=== PATIENT | female | born 1945 | race Caucasian/White ===

== ENCOUNTER 2018-03-18 22:51 | Inpatient (IN) ==
--- NOTE | 2018-03-18 23:38 | Emergency Department Note ---
Disposition Clinical Impression: CAP (community acquired pneumonia) Qualifiers: Laterality: left Lung location: lower lobe of lung Qualified Code(s): J18.1 - Lobar pneumonia, unspecified organism UTI (urinary tract infection) Qualifiers: Urinary tract infection type: acute cystitis Hematuria presence: without hematuria Qualified Code(s): N30.00 - Acute cystitis without hematuria Disposition: Home, Self-Care Condition: Good Time of Disposition: 03:01 General Adult HPI - General Chief complaint: ED Weakness Stated complaint: weakness Source: patient, EMS Limitations: no limitations Nursing Notes Reviewed: Yes Vital Signs Reviewed: Yes - History of Present Illness HPI Narrative: 72-year-old female presents emergency department with concern for generalized weakness. Patient states that getting difficult for her to move around. States that she has had more falls lately. Was told by her home health nurse to come to the emergency department to be evaluated for further testing as they believe she has finished her first round of physical therapy and needs more. Patient denies any loss of conscious, denies hitting her head, states that she has no chest pain, pressure, tightness, no shortness of breath. Denies any abdominal pain, nausea, vomiting. Pain Scale: 0 - Related Data Home Medications Medication Instructions Recorded Confirmed Ascorbic Acid [Vitamin C] 500 mg PO DAILY #0 05/19/15 03/03/18 Biotin 1 mg PO DAILY 05/19/15 03/03/18 Cholecalciferol (D-3) [Vitamin D] 5,000 unit PO DAILY #0 05/19/15 03/03/18 Pravastatin Sodium [Pravachol] 20 mg PO HS 05/19/15 03/03/18 Vitamin E Acid Succinate [Vitamin 800 units PO DAILY #0 05/19/15 03/03/18 E] Aspirin Enteric Coated [Aspirin EC] 81 mg PO DAILY 01/10/16 03/03/18 Clopidogrel [Plavix] 75 mg PO DAILY 01/10/16 03/03/18 Anastrozole [Arimidex] 1 mg PO DAILY 05/08/17 03/03/18 Carvedilol 3.125 mg PO BID 05/08/17 03/03/18 Esomeprazole Magnesium [Nexium] 40 mg PO DAILY 05/08/17 03/03/18 Lisinopril 2.5 mg PO DAILY 05/08/17 03/03/18 Nitroglycerin [Nitrostat] 0.4 mg SL Q5M PRN 05/08/17 03/03/18 Ondansetron HCl [Zofran] 4 mg PO BID PRN 05/08/17 03/03/18 Polyethylene Glycol 3350 [MiraLAX] 17 gm PO DAILY PRN 05/08/17 03/03/18 Yervoy IV Q3W 05/08/17 Previous Rx's Medication Instructions Recorded Potassium Chloride 10 meq PO DAILY #30 tab.er.prt 03/12/18 Levofloxacin [Levaquin] 750 mg PO QDPC #4 tablet 03/19/18 Ondansetron HCl [Zofran] 4 mg PO Q8HR PRN #21 tab 03/19/18 Allergies Allergy/AdvReac Type Severity Reaction Status Date / Time atorvastatin [From Lipitor] Allergy Muscle Pain Verified 01/10/16 18:31 codeine Allergy See Verified 03/17/15 21:29 Comments All systems ED: reviewed and negative except as stated. Review of Systems: As Per HPI Constitutional: Denies: fever Cardiovascular: Denies: chest pain Respiratory: Reports: cough, dyspnea Gastrointestinal: Reports: nausea. Denies: abdominal pain, vomiting Genitourinary: Denies: urgency, dysuria, frequency Musculoskeletal: Denies: back pain Integumentary: Denies: rash Past Medical History - Past Medical History Medical history: Reports: cancer, coronary artery disease, diabetes, hyperlipidemia, hypertension, myocardial infarction, osteoporosis, syncope Surgical history: Reports: breast surgery Psychiatric history: Reports: no psych history - Social History Smoking Status: Never smoker Smokeless Tobacco Status: No Alcohol use: Reports: rarely Drug use: Reports: none Physical Exam - General Limitations: no limitations General appearance: alert, in no apparent distress - Head Head exam: normocephalic - Eye Eye exam: Present: EOMI - ENT ENT exam: normal oropharynx - Neck Neck exam: Present: trachea midline - Chest Chest inspection: Present: symmetric chest wall rise - Respiratory Respiratory exam: Present: normal lung sounds bilaterally. Absent: respiratory distress - Cardiovascular Cardiovascular exam: Present: regular rate, normal rhythm, normal heart sounds - Abdominal Exam Abdominal exam: Present: soft, Non-Tender. Absent: distention, guarding, rebound, rigidity - Extremities Exam Extremities exam: Present: normal capillary refill - Neurological Exam Neurological exam: Present: alert, oriented X3 - Psychiatric Psychiatric exam: Present: normal affect, normal mood - Skin Skin exam: Present: warm, dry, intact, normal color Course Vital Signs Temperature 98.1 F 03/18/18 22:57 Pulse Rate 90 03/18/18 22:57 Respiratory Rate 20 03/18/18 22:57 Blood Pressure 133/78 03/18/18 22:57 O2 Sat by Pulse Oximetry 95 03/18/18 22:57 Temperature 98.2 F 03/19/18 04:24 Pulse Rate 84 03/19/18 03:39 Respiratory Rate 18 03/19/18 04:24 Blood Pressure 130/74 03/19/18 04:24 O2 Sat by Pulse Oximetry 96 03/19/18 03:39 Oxygen Delivery Oxygen Delivery Room Air Medical Decision Making - MDM Narrative Medical decision making narrative: 72-year-old female presents emergency department with concern for generalized weakness that she has been evaluated for previously. We will obtain chest x- ray. This revealed evidence of left lower lobe pneumonia. Urinalysis also obtained. This revealed moderate leukocyte esterase. Patient was not in any acute distress during her emergency room stay. She does not have a leukocytosis. Hemoglobin was within normal limits. Creatinine was normal as well. We gave patient a liter of fluids here in the emergency department as well as Zofran for nausea. We will send patient home with Levaquin to treat both UTI and pneumonia. Patient agrees with plan. Hemodynamically stable not in any acute distress at time of discharge from the emergency department. Chest X-Ray 03/18/18 23:37 IMPRESSION: Left retrocardiac consolidation consistent with combination of airspace disease/ pneumonia and small left pleural effusion. D/ / Tmimy Maldonado MD / Timym Maldonado MD Interpreting Provider: Timmy Maldonado MD Vital Signs Temperature 98.1 F 03/18/18 22:57 Pulse Rate 90 03/18/18 22:57 Respiratory Rate 20 03/18/18 22:57 Blood Pressure 133/78 03/18/18 22:57 O2 Sat by Pulse Oximetry 95 03/18/18 22:57 Temperature 98.1 F 03/18/18 22:57 Pulse Rate 90 03/18/18 22:57 Respiratory Rate 20 03/18/18 22:57 Blood Pressure 133/78 03/18/18 22:57 O2 Sat by Pulse Oximetry 98 03/18/18 23:14 Oxygen Delivery Oxygen Delivery Nasal Cannula - Lab Data Result diagrams: 03/19/18 01:23 03/19/18 01:23 Lab Results 03/19/18 03/19/18 03/19/18 Range/Units 01:23 01:23 01:23 WBC 8.0 (4.3-11.1) K/mcL RBC 4.18 (3.82-4.97) M/mcL Hgb 13.6 (11.5-15.4) g/dL Hct 40.5 (35.3-44.9) % MCV 96.9 (83.0-100.0) fL MCH 32.5 (28.0-33.3) pg MCHC 33.6 (31.6-35.5) g/dL RDW 14.8 H (11.5-14.5) % Plt Count 229 (140-400) K/mcL MPV 9.5 (9.4-12.4) fL Immature Gran % 0.4 (0-4) % Seg Neutrophils % 77.5 % Lymphocytes % 13.4 % Monocytes % 8.0 % Eosinophils % 0.1 % Basophils % 0.6 % Neutrophils # 6.2 (1.6-8.9) K/mcL Lymphocytes # 1.1 (0.6-4.6) K/mcL Monocytes # 0.6 (0.0-1.3) K/mcL Eosinophils # 0.0 (0.0-0.6) K/mcL Basophils # 0.1 (0.0-0.2) K/mcL Sodium 135 L (136-145) mEq/L Potassium 4.1 (3.5-5.1) mEq/L Chloride 96 L (98-107) mEq/L Carbon Dioxide 24 (23-29) mEq/L BUN 24 H (8-23) mg/dL Creatinine 0.57 L (0.60-1.20) mg/dL Est GFR ( Amer) > 60 (> 60) Est GFR (Non-Af Amer) > 60 (> 60) BUN/Creatinine Ratio 42 H (6-26) Glucose 97 (70-105) mg/dL Calculated Osmolality 284 (280-300) Calcium 9.0 (8.6-10.3) mg/dL Total Bilirubin 1.0 (0.3-1.0) mg/dL AST 11 L (13-39) Units/L ALT 3 L (7-52) Units/L Alkaline Phosphatase 56 (34-104) Units/L Troponin I < 0.03 (< 0.04) ng/mL Serum Total Protein 5.8 L (6.4-8.9) g/dL Albumin 3.0 L (3.5-5.7) g/dL Globulin 2.8 (2.4-3.5) g/dL Albumin/Globulin Ratio 1.1 (1.1-2.2) Lipase 22 (11-82) Units/L TSH 5.237 (0.340-5.600) mcIU/mL Urine Color (Yellow) Urine Clarity (Clear) Urine pH (5.0-8.0) pH Units Ur Specific Conover (1.010-1.025) Urine Protein (Neg-Trace) mg/dL Urine Glucose (UA) (Normal) mg/dL Urine Ketones (Negative) mg/dL Urine Blood (Negative) Urine Nitrite (Negative) Urine Bilirubin (Negative) Urine Urobilinogen (Normal) mg/dL Ur Leukocyte Esterase (Negative) Urine Microscopic RBC (0-3) per hpf Urine Microscopic WBC (0-3) per hpf Ur Squamous Epith Cells (None-Few) per lpf Urine Bacteria (None-Few) per hpf Hyaline Casts (None-Few) per lpf Ur Culture Indicated? (NO) 03/19/18 Range/Units 02:14 WBC (4.3-11.1) K/mcL RBC (3.82-4.97) M/mcL Hgb (11.5-15.4) g/dL Hct (35.3-44.9) % MCV (83.0-100.0) fL MCH (28.0-33.3) pg MCHC (31.6-35.5) g/dL RDW (11.5-14.5) % Plt Count (140-400) K/mcL MPV (9.4-12.4) fL Immature Gran % (0-4) % Seg Neutrophils % % Lymphocytes % % Monocytes % % Eosinophils % % Basophils % % Neutrophils # (1.6-8.9) K/mcL Lymphocytes # (0.6-4.6) K/mcL Monocytes # (0.0-1.3) K/mcL Eosinophils # (0.0-0.6) K/mcL Basophils # (0.0-0.2) K/mcL Sodium (136-145) mEq/L Potassium (3.5-5.1) mEq/L Chloride (98-107) mEq/L Carbon Dioxide (23-29) mEq/L BUN (8-23) mg/dL Creatinine (0.60-1.20) mg/dL Est GFR ( Amer) (> 60) Est GFR (Non-Af Amer) (> 60) BUN/Creatinine Ratio (6-26) Glucose (70-105) mg/dL Calculated Osmolality (280-300) Calcium (8.6-10.3) mg/dL Total Bilirubin (0.3-1.0) mg/dL AST (13-39) Units/L ALT (7-52) Units/L Alkaline Phosphatase (34-104) Units/L Troponin I (< 0.04) ng/mL Serum Total Protein (6.4-8.9) g/dL Albumin (3.5-5.7) g/dL Globulin (2.4-3.5) g/dL Albumin/Globulin Ratio (1.1-2.2) Lipase (11-82) Units/L TSH (0.340-5.600) mcIU/mL Urine Color Dukes A (Yellow) Urine Clarity Clear (Clear) Urine pH 6.0 (5.0-8.0) pH Units Ur Specific [place] 1.019 (1.010-1.025) Urine Protein 30 H (Neg-Trace) mg/dL Urine Glucose (UA) Normal (Normal) mg/dL Urine Ketones 80 H (Negative) mg/dL Urine Blood Negative (Negative) Urine Nitrite Negative (Negative) Urine Bilirubin Large H (Negative) Urine Urobilinogen 2.0 H (Normal) mg/dL Ur Leukocyte Esterase Moderate H (Negative) Urine Microscopic RBC 0-3 (0-3) per hpf Urine Microscopic WBC 5-15 H (0-3) per hpf Ur Squamous Epith Cells Many H (None-Few) per lpf Urine Bacteria Few (None-Few) per hpf Hyaline Casts None Seen (None-Few) per lpf Ur Culture Indicated? NO. A (NO) - EKG Data EKG #1 EKG attestation: Yes I reviewed and interpreted this EKG. EKG results narrative: 23:02 Ventricular rate 96 bpm, appearing 162 ms, QRS duration 78 ms, QT 347 segs, QTC 401 ms, sinus rhythm with a ventricular rate of 96 bpm. Low voltage. No ischemic ST changes. Attestation Statement - Attestation Attestation: Dr Tiwari note: Pt seen in conjunction w/ resident Dr Casillas; please see his charting for complete documentation. I spent [id number] time with the patient and I agree with the patient's treatment and disposition. X rays and bloodwork reviewed; unable to care for self @ this time; just left an ecf approx 1 wk ago, but reportes she has been unable to do her ADLs since that time and getting progresively worse;
[2018-03-18] MEDS ORDERED: 0.9 % Sodium Chloride 1,000 ML IVC ONE (23:50)
[2018-03-18] MEDS ORDERED: Ondansetron 4 MG/2 ML VIAL IVP ONE (23:50)
[2018-03-19 01:37] LABS: Basophils # 0.1 K/mcL (0.0-0.2); Basophils % 0.6 %; Eosinophils % 0.1 %; Hematocrit 40.5 % (35.3-44.9); Hemoglobin 13.6 g/dL (11.5-15.4); Immature Granulocytes % 0.4 % (0-4); Lymphocytes # 1.1 K/mcL (0.6-4.6); Lymphocytes % 13.4 %; Mean Corpuscular HGB Conc 33.6 g/dL (31.6-35.5); Mean Corpuscular Hemoglobin 32.5 pg (28.0-33.3); Mean Corpuscular Volume 96.9 fL (83.0-100.0); Mean Platelet Volume 9.5 fL (9.4-12.4); Monocytes # 0.6 K/mcL (0.0-1.3); Neutrophils # 6.2 K/mcL (1.6-8.9); Platelet Count 229 K/mcL (140-400); Red Blood Count 4.18 M/mcL (3.82-4.97); Red Cell Distribution Width 14.8 % (11.5-14.5); Segmented Neutrophils % 77.5 %
[2018-03-19 02:02] LABS: Alanine Aminotransferase 3 Units/L (7-52); Albumin/Globulin Ratio 1.1 (1.1-2.2); Alkaline Phosphatase 56 Units/L (34-104); Aspartate Amino Transferase 11 Units/L (13-39); BUN/Creatinine Ratio 42 (6-26); Blood Urea Nitrogen 24 mg/dL (8-23); Carbon Dioxide 24 mEq/L (23-29); Chloride 96 mEq/L (98-107); Globulin 2.8 g/dL (2.4-3.5); Glucose 97 mg/dL (70-105); Lipase 22 Units/L (11-82); Osmolality,Calculated 284 (280-300); Potassium 4.1 mEq/L (3.5-5.1); Sodium 135 mEq/L (136-145); Total Protein 5.8 g/dL (6.4-8.9); eGFR For Non-African Americans > 60 (> 60)
[2018-03-19 02:04] LABS: Troponin I < 0.03 ng/mL (< 0.04)
[2018-03-19 02:18] LABS: Thyroid Stimulating Hormone 5.237 mcIU/mL (0.340-5.600)
[2018-03-19 02:25] LABS: Bilirubin,Urine Large (Negative); Blood,Urine Negative (Negative); Clarity,Urine Clear (Clear); Color,Urine Orange (Yellow); Glucose,Urine (UA) Normal (Normal); Ketones,Urine 80 mg/dL (Negative); Leukocyte Esterase,Urine Moderate (Negative); Nitrite,Urine Negative (Negative); Protein,Urine 30 mg/dL (Neg-Trace); Specific Gravity,Urine 1.019 (1.010-1.025)
[2018-03-19 02:33] LABS: Hyaline Casts,Urine None Seen per lpf (None-Few); Squamous Epithelial Cell,Urine Many per lpf (None-Few)
[2018-03-19 02:42] LABS: Bacteria,Urine Few per hpf (None-Few); RBC,Urine 0-3 per hpf (0-3)
[2018-03-19] MEDS ORDERED: Naloxone 0.4 MG/ML INJ IVP PRN (05:44)
--- NOTE | 2018-03-19 06:24 | Internal Med History&Physical ---
Date of Encounter: 03/19/18 Time of Encounter: 05:00 Internal Medicine - H&P: HPI Chief complaint: Pneumonia, UTI Admitted From: Home Plans for Post Hospital Care: Home History of present illness: Ms. Valerio is a 72 year old female Patient has extensive cancer history including melanoma of the right foot, breast cancer and current lymph node metastasis in her right thigh. She has been following with [facility] for treatment and has been started on immunotherapy. She has been in and out of hospitals and extended care facilities over the last month. She was recently released from an extended care facility about a week ago, had continued problems with ambulation and weakness. She is noticed increased coughing and congestion lately as well. She has a home health nurse assessed her and told her that she should come to the emergency room for evaluation. In the ER her vital signs were stable, she was found did not have a elevated white count, but urinalysis showed moderate leukocyte esterase, 30 protein 5-15 microscopic white blood cells and many squamous epithelial cells. Patient denies dysuria, but due to her condition and immunocompromised state ER felt appropriate patient be treated. Urine cultures were ordered. Chest x-ray also showed left retrocardiac consolidation consistent with combination of airspace disease and pneumonia as well as a small left pleural effusion. Because of her recent hospital stays as well as treatment at [facility] and cancer center, patient was admitted for further management of her pneumonia and UTI. Upon my assessment, patient denies chest pain but has had increased shortness of breath. She denies nausea and vomiting. She denied diarrhea and constipation. Past Med Surg Social Fam HX - Past Medical History Medical history: cancer, coronary artery disease, diabetes, hyperlipidemia, hypertension, myocardial infarction, osteoporosis, syncope Additional medical history: Breast cancer, Melanoma- Right foot, RLE, right groin, Stage 3. Psychiatric history: no psych history - Past Surgical History Surgical History: breast surgery Additional surgical history: Heart stent, Skin Graphs, Lymph node removal, Incision of the right foot. - Social History Smoking Status: Never smoker Smokeless Tobacco Status: No Alcohol use: rarely Drug use: none - Family History Father Family Member Ethnicity: Non- Living Status: Hx Family Cardiac Disorders: Yes (MO, HTN) Hx Family GI Disorders: Yes (Ulcers) Hx Family Endocrine Disorder: Yes (Gallstones, DM) Mother Family Member Ethnicity: Non- Living Status: Hx Family Cardiac Disorders: Yes (Tachycardia) Hx Family Cancer: Yes (Melanoma, Breast) Brother Family Member Ethnicity: Non- Living Status: Hx Family Cardiac Disorders: Yes (MO) Hx Family Cancer: Yes (Melanoma) Hx Family GI Disorders: Yes (Ulcers) Internal Medicine - H&P: Meds Ascorbic Acid [Vitamin C] 500 mg PO DAILY #0 05/19/15 [History] Biotin 1 mg PO DAILY 05/19/15 [History] Cholecalciferol (D-3) [Vitamin D] 5,000 unit PO DAILY #0 05/19/15 [History] Pravastatin Sodium [Pravachol] 20 mg PO HS 05/19/15 [History] Vitamin E Acid Succinate [Vitamin E] 800 units PO DAILY #0 05/19/15 [History] Aspirin Enteric Coated [Aspirin EC] 81 mg PO DAILY 01/10/16 [History] Clopidogrel [Plavix] 75 mg PO DAILY 01/10/16 [History] Anastrozole [Arimidex] 1 mg PO DAILY 05/08/17 [History] Carvedilol 3.125 mg PO BID 05/08/17 [History] Esomeprazole Magnesium [Nexium] 40 mg PO DAILY 05/08/17 [History] Lisinopril 2.5 mg PO DAILY 05/08/17 [History] Nitroglycerin [Nitrostat] 0.4 mg SL Q5M PRN 05/08/17 [History] Ondansetron HCl [Zofran] 4 mg PO BID PRN 05/08/17 [History] Polyethylene Glycol 3350 [MiraLAX] 17 gm PO DAILY PRN 05/08/17 [History] Yervoy IV Q3W 05/08/17 [History] Potassium Chloride 10 meq PO DAILY #30 tab.er.prt 03/12/18 [Rx] Levofloxacin [Levaquin] 750 mg PO QDPC #4 tablet 03/19/18 [Rx] Ondansetron HCl [Zofran] 4 mg PO Q8HR PRN #21 tab 03/19/18 [Rx] 3 Allergy/AdvReac Type Severity Reaction Status Date / Time atorvastatin [From Lipitor] Allergy Muscle Pain Verified 01/10/16 18:31 codeine Allergy See Verified 03/17/15 21:29 Comments All Systems PM: A 10-system review of systems was performed and is negative for pertinent findings except as documented above in the HPI. - Constitutional Vitals: Temp Pulse Resp BP Pulse Ox 97.7 F 86 16 184/98 93 03/19/18 04:58 03/19/18 04:58 03/19/18 04:58 03/19/18 04:58 03/19/18 04:58 General appearance: Present: cooperative, A&O X 3, pleasant, no acute distress, answers questions appropriately - Head Head exam: Present: normal inspection - Eye Eye exam: Present: EOMI, normal appearance - Respiratory Respiratory exam: Present: CTAB. Absent: chest wall tenderness, respiratory distress, wheezes - Cardiovascular Cardiovascular exam: Present: RRR. Absent: diastolic murmur, systolic murmur - GI/Abdominal GI/Abdominal exam: Present: soft. Absent: distended, tenderness Additional comments: Large lymph node swelling in the right groin area. - Extremities Exam Extremities exam: Present: warm, radial pulses palpable and symmetrical. Absent : calf tenderness, pedal edema, tenderness - Neurological Exam Neurological exam: Present: no focal deficits. Absent: facial droop, speech deficit - Skin Skin exam: Present: dry, normal color, warm Internal Med - H&P Results - Labs CBC & Chem 7: 03/19/18 01:23 03/19/18 01:23 - Assessment and plan (1) Healthcare-associated pneumonia Current Visit: Yes Status: Acute Assessment and plan: As evidenced by patient's chest x-ray. Will treat aggressively due to patient' s immunotherapy treatment, recent hospitalizations and ECF stays. Blood cultures ordered and to be drawn this morning prior to giving antibiotics Start patient on healthcare associated pneumonia antibiotic regimen including vancomycin, Levaquin and Zosyn De-escalate antibiotics according to patient response and blood culture results. Check lactate this morning Continue to monitor (2) UTI (urinary tract infection) Current Visit: Yes Status: Acute Assessment and plan: Patient's UA positive for moderate leukocyte esterase but negative for nitrites. There were also many squamous epithelial cells seen. Due to the possibility of infection will still treat with Levaquin as given for her pneumonia treatment. Follow-up urine culture results Qualifiers: Urinary tract infection type: acute cystitis Hematuria presence: without hematuria Qualified Code(s): N30.00 - Acute cystitis without hematuria (3) Lymph node enlargement Current Visit: Yes Status: Acute Assessment and plan: Apparently from metastatic spread to the right thigh lymph node. Will need to confirm patient's treatment initiated by oncology, and continue that while here in the hospital Follow-up with pharmacy and oncology documentation (4) Generalized weakness Current Visit: No Status: Chronic Assessment and plan: Patient recently discharged from [facility] despite continued weakness. PT evaluation during this hospitalization stay when stable. (5) GERD (gastroesophageal reflux disease) Current Visit: No Status: Acute Assessment and plan: Chronic, continue PPI Qualifiers: Esophagitis presence: without esophagitis Qualified Code(s): K21.9 - Gastro -esophageal reflux disease without esophagitis (6) Malignant melanoma of right foot Current Visit: No Status: Chronic Assessment and plan: Continue to monitor, treatment as per oncology (7) Diabetes Current Visit: No Status: Chronic Assessment and plan: Continue to monitor Basal insulin at night Low dose sliding scale Check sugars ACHS Qualifiers: Diabetes mellitus type: type 2 Diabetes mellitus 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
[2018-03-19 06:34] LABS: Hematocrit 42.9 % (35.3-44.9); Hemoglobin 14.2 g/dL (11.5-15.4); Mean Corpuscular HGB Conc 33.1 g/dL (31.6-35.5); Mean Corpuscular Hemoglobin 31.2 pg (28.0-33.3); Mean Corpuscular Volume 94.3 fL (83.0-100.0); Mean Platelet Volume 9.4 fL (9.4-12.4); Platelet Count 237 K/mcL (140-400); Red Blood Count 4.55 M/mcL (3.82-4.97)
[2018-03-19] MEDS ORDERED: Dextrose Gel 15 GM/37.5 ML TUBE PO PRN ×2 (06:39)
[2018-03-19] MEDS ORDERED: D5% in Water 1,000 ML IVC PRN (06:39)
[2018-03-19] MEDS ORDERED: *HR* Dextrose 50 % in Water (Syg) 50 ML SYRINGE IVP PRN (06:39)
[2018-03-19 06:49] LABS: BUN/Creatinine Ratio 43 (6-26); Blood Urea Nitrogen 23 mg/dL (8-23); Calcium 9.3 mg/dL (8.6-10.3); Carbon Dioxide 25 mEq/L (23-29); Chloride 96 mEq/L (98-107); Glucose 84 mg/dL (70-105); Osmolality,Calculated 287 (280-300); Potassium 3.7 mEq/L (3.5-5.1); Sodium 137 mEq/L (136-145); eGFR For Non-African Americans > 60 (> 60)
--- NOTE | 2018-03-19 07:54 | Internal Med Progress Note ---
Hospitalist Progress Note - Encounter Date of Encounter: 03/19/18 Time of Encounter: 07:54 - Subjective Interval History: Patient seen and examined at bedside today, no acute changes overnight. Appears to be in a pleasant mood, continues to report shortness of breath with activity as well as nonproductive cough. Reporting right groin lymph node swelling. Discussed plan of care, verbalizes understanding and denies any questions at this time. - Exam Vitals: Temp Pulse Resp BP Pulse Ox 97.8 F 81 16 159/84 97 03/19/18 07:03 03/19/18 07:03 03/19/18 07:03 03/19/18 07:03 03/19/18 07:03 Exam: PHYSICAL EXAMINATION: GENERAL: The patient is an elderly ill appearing female in no apparent distress. She is alert and oriented x3. HEENT: Head is normocephalic and atraumatic. Extraocular muscles are intact. Pupils are equal, round, and reactive to light and accommodation. Nares appeared normal. Mouth is well hydrated and without lesions. Mucous membranes are moist. NECK: Supple. No carotid bruits. No lymphadenopathy or thyromegaly. LUNGS: Clear to auscultation. HEART: Regular rate and rhythm without murmur. ABDOMEN: Soft, nontender, and nondistended. Hypoactive bowel sounds. No hepatosplenomegaly was noted. EXTREMITIES: Without any cyanosis, clubbing, rash, lesions or edema.--Scar tissue on inner aspect of right foot and right Status post melanoma removal. Large swollen firm lymph node in the right groin 2/2 metastatic melanoma NEUROLOGIC: Without facial droop or slurred speech - Assessment and Plan (1) Healthcare-associated pneumonia Current Visit: Yes Status: Acute Assessment and Plan: Weakness, fatigue, cough and shortness of breath Immunocompromise with metastatic melanoma and right breast cancer Multiple recent hospital stays including recent admission to [facility] for rehabilitation Chest x-ray shows--lconsolidation consistent with combination of airspace disease/pneumonia Being treated for healthcare acquired pneumonia--organism unclear Continue treatment with broad-spectrum antibiotics including vancomycin, Levaquin and Zosyn De-escalate antibiotics according to patient's response and blood culture results Does not appear to be toxic at this time Continue to closely monitor Check CBC, BMP daily Ambulate 3 times a day, up in chair 3 times a day Incentive spirometer Oxygen supplementation PRN (2) UTI (urinary tract infection) Current Visit: Yes Status: Acute Assessment and Plan: Urinalysis positive for moderate facet Estrace but negative for nitrates Patient presented with weakness and fatigue. Also, she is immunocompromised secondary to right breast cancer and metastatic melanoma I risk for infections, continue to treat with Levaquin which is also being given for her HCAP Urine sent for culture--follow up with results (3) Lymph node enlargement Current Visit: Yes Status: Acute Assessment and Plan: Enlargement of right carotid lymph node secondary to metastatic spread of melanoma from right foot and calf. She is currently being treated with immunotherapy at the [facility].--Recent scans at [facility] negative for abdominal organ, or lung metastasis. (4) GERD (gastroesophageal reflux disease) Current Visit: No Status: Acute Assessment and Plan: Chronic, continue PPI (5) Cancer of right female breast Current Visit: No Status: Chronic Assessment and Plan: Cancer of right breast--estrogen positive Being treated at the [facility] (6) Diabetes Current Visit: No Status: Chronic Assessment and Plan: Chronic, fingerstick blood glucose stable Continue basal insulin at night Continue low-dose sliding scale Monitor glucose ACHS (7) Generalized weakness Current Visit: No Status: Chronic Assessment and Plan: In the setting of healthcare acquired pneumonia Also, patient has history of metastatic melanoma and right breast cancer She was recently released from [facility] for rehabilitation PT/OT while inpatient--consult vp digital marketing social media and crm for discharge planning as the patient may benefit from additional rehabilitation (8) HLD (hyperlipidemia) Current Visit: No Status: Chronic (9) HTN (hypertension) Current Visit: No Status: Chronic Assessment and Plan: BP remains stable, continue current and HTN medication regimen once medications have been reviewed and confirmed (10) Malignant melanoma of right foot Current Visit: No Status: Chronic Assessment and Plan: See above DVT Prophylaxis: Subcutaneous heparin - Time Spent with Patient Total time spent is greater than 50% in coordination of care (as documented) at patient's floor/unit and/or counseling patient: 25 - 35 minutes Plan of Care Discussed with: patient Internal Medicine: Result - Labs CBC & Chem 7: 03/19/18 06:15 03/19/18 06:15 Labs: Short CBC 03/19/18 Range/Units 06:15 WBC 8.1 (4.3-11.1) K/mcL Hgb 14.2 (11.5-15.4) g/dL Hct 42.9 (35.3-44.9) % Plt Count 237 (140-400) K/mcL BMP 03/19/18 06:15 Sodium 137 Potassium 3.7 Chloride 96 L Carbon Dioxide 25 BUN 23 Creatinine 0.53 L Glucose 84 Calcium 9.3 Consult Discharge Plan - Plan Referrals: Rojas Campoverde MD [Primary Care Provider] - 04/04/18 10:00 am (2) UTI (urinary tract infection) Qualifiers: Urinary tract infection type: acute cystitis Hematuria presence: without hematuria Qualified Code(s): N30.00 - Acute cystitis without hematuria (4) GERD (gastroesophageal reflux disease) Qualifiers: Esophagitis presence: without esophagitis Qualified Code(s): K21.9 - Gastro- esophageal reflux disease without esophagitis (5) Cancer of right female breast Qualifiers: Breast location: unspecified site of breast Estrogen receptor status: unspecified Qualified Code(s): C50.911 - Malignant neoplasm of unspecified site of right female breast (6) Diabetes Qualifiers: Diabetes mellitus type: type 2 Diabetes mellitus local company intermodal truck driver insulin use: with local company intermodal truck driver use Diabetes mellitus complication status: with unspecified complications Qualified Code(s): E11.8 - Type 2 diabetes mellitus with unspecified complications; Z79.4 - ferry terminal agent (current) use of insulin (8) HLD (hyperlipidemia) Qualifiers: Hyperlipidemia type: pure hypercholesterolemia Qualified Code(s): E78.00 - Pure hypercholesterolemia, unspecified; E78.0 - Pure hypercholesterolemia (9) HTN (hypertension) Qualifiers: Hypertension type: essential hypertension Qualified Code(s): I10 - Essential (primary) hypertension
[2018-03-19] MEDS: Piperacillin/Tazobactam 3.375 GM in 0.9 % Sodium Chloride Mini Bag 100 ML IVPB SCH ×3 (08:07→21:14)
[2018-03-19] MEDS: Insulin LISPRO 300 UNITS/3 ML VIAL SQ SCH ×3 (08:14→16:37)
[2018-03-19] MEDS ORDERED: Nitroglycerin 0.4 MG TAB.SUBL SL PRN (09:47)
[2018-03-19] MEDS ORDERED: (Biotin [Biotin] 1 MG) PO SCH (10:00)
[2018-03-19] MEDS: Anastrozole 1 MG TABLET PO SCH (10:51)
[2018-03-19] MEDS: Ascorbic Acid 500 MG TABLET PO SCH (10:52)
[2018-03-19] MEDS: Aspirin Enteric Coated 81 MG Tablet PO SCH (10:52)
[2018-03-19] MEDS: Cholecalciferol (D-3) 1,000 UNIT TABLET PO SCH (10:53)
[2018-03-19] MEDS: Nystatin SUSP 5 ML UD.LIQ PO SCH ×4 (11:04→20:53)
[2018-03-19] MEDS: Levofloxacin 750 MG/150 ML 750 MG/150 ML BAG IVPB SCH (12:06)
[2018-03-19 13:34] LABS: Creatine Kinase 20 Units/L (30-223)
[2018-03-19] MEDS: *HR* Heparin 5,000 UNIT/ML VIAL SQ SCH (16:41)
--- NOTE | 2018-03-19 17:13 | Electrocardiograph Report ---
[place] [id number] Test Date: 2018-03-18 Pat Name: Fanny Valerio Department: 104 Room: 3B24 Gender: F Addiction Nurse: STEF : 1945 Requested By: Jak Bird Order Number: [id number] Reading MD: Calos Burger Measurements Intervals Notrees Rate: 96 P: 73 MN: 162 QRS: -11 QRSD: 78 T: 87 QT: 347 QTc: 401 Interpretive Statements SINUS RHYTHM LOW QRS VOLTAGE IN EXTREMITY LEADS Electronically Signed On 03-19-2018 17:11:46 EDT by Calos Burger
[2018-03-19] MEDS: Insulin DETEMIR 100 UNIT/ML X5UNITS SQ SCH (20:54)
[2018-03-20 05:37] LABS: Basophils # 0.1 K/mcL (0.0-0.2); Basophils % 0.8 %; Eosinophils # 0.1 K/mcL (0.0-0.6); Eosinophils % 0.8 %; Hematocrit 38.2 % (35.3-44.9); Hemoglobin 12.8 g/dL (11.5-15.4); Immature Granulocytes % 0.6 % (0-4); Lymphocytes # 0.9 K/mcL (0.6-4.6); Lymphocytes % 13.3 %; Mean Corpuscular HGB Conc 33.5 g/dL (31.6-35.5); Mean Corpuscular Hemoglobin 31.7 pg (28.0-33.3); Mean Corpuscular Volume 94.6 fL (83.0-100.0); Monocytes # 0.5 K/mcL (0.0-1.3); Monocytes % 7.6 %; Neutrophils # 5.1 K/mcL (1.6-8.9); Platelet Count 221 K/mcL (140-400); Red Blood Count 4.04 M/mcL (3.82-4.97); Red Cell Distribution Width 14.9 % (11.5-14.5); Segmented Neutrophils % 76.9 %
[2018-03-20 05:43] LABS: BUN/Creatinine Ratio 29 (6-26); Blood Urea Nitrogen 17 mg/dL (8-23); Calcium 8.3 mg/dL (8.6-10.3); Carbon Dioxide 26 mEq/L (23-29); Chloride 99 mEq/L (98-107); Glucose 78 mg/dL (70-105); Osmolality,Calculated 282 (280-300); Potassium 3.5 mEq/L (3.5-5.1); Sodium 136 mEq/L (136-145); eGFR For Non-African Americans > 60 (> 60)
[2018-03-20] MEDS: *HR* Heparin 5,000 UNIT/ML VIAL SQ SCH ×3 (06:15→18:55)
[2018-03-20] MEDS: Piperacillin/Tazobactam 3.375 GM in 0.9 % Sodium Chloride Mini Bag 100 ML IVPB SCH ×3 (06:20→21:14)
[2018-03-20] MEDS: Nystatin SUSP 5 ML UD.LIQ PO SCH ×5 (08:20→20:31)
[2018-03-20] MEDS: Levofloxacin 750 MG/150 ML 750 MG/150 ML BAG IVPB SCH (08:21)
[2018-03-20] MEDS: Anastrozole 1 MG TABLET PO SCH (08:21)
[2018-03-20] MEDS: Cholecalciferol (D-3) 1,000 UNIT TABLET PO SCH (08:21)
[2018-03-20] MEDS: Ascorbic Acid 500 MG TABLET PO SCH (08:21)
[2018-03-20] MEDS: Aspirin Enteric Coated 81 MG Tablet PO SCH (08:21)
[2018-03-20] MEDS: (Biotin [Biotin] 1 MG) PO SCH (08:33)
[2018-03-20] MEDS: Insulin LISPRO 300 UNITS/3 ML VIAL SQ SCH ×3 (08:53→18:23)
[2018-03-20] MEDS ORDERED: NON-FORMULARY MEDICATION 1 EACH EACH PO SCH (09:00)
[2018-03-20] MEDS: Ondansetron 4 MG/2 ML VIAL IVP PRN ×3 (09:42→21:13)
--- NOTE | 2018-03-20 15:07 | Internal Med Progress Note ---
Hospitalist Progress Note - Encounter Date of Encounter: 03/20/18 Time of Encounter: 14:30 - Subjective Interval History: Patient seen and examined at bedside today w/continued report of weakness and SOB. Rapid response called earlier this a.m. when pt. became unresponsive in restroom while being assisted.On exam, pt. appears to be in a pleasant mood, continues to report shortness of breath with activity as well as nonproductive cough. Continues to report right groin lymph node swelling. Discussed plan of care, verbalizes understanding and denies any questions at this time. - Exam Vitals: Temp Pulse Resp BP Pulse Ox 97.8 F 83 16 115/76 98 03/20/18 11:34 03/20/18 11:44 03/20/18 11:34 03/20/18 11:44 03/20/18 11:34 PHYSICAL EXAMINATION: GENERAL: The patient is an elderly ill appearing female reporting weakness. She is alert and oriented x3. HEENT: Head is normocephalic and atraumatic. Extraocular muscles are intact. Pupils are equal, round, and reactive to light and accommodation. Nares appeared normal. Mouth is well hydrated and without lesions. Mucous membranes are moist. NECK: Supple. No carotid bruits. No lymphadenopathy or thyromegaly. LUNGS: Clear to auscultation. HEART: Regular rate and rhythm without murmur. ABDOMEN: Soft, nontender, and nondistended. Hypoactive bowel sounds. No hepatosplenomegaly was noted. EXTREMITIES: Without any cyanosis, clubbing, rash, lesions or edema.--Scar tissue on inner aspect of right foot and right Status post melanoma removal. Large swollen firm lymph node in the right groin 2/2 metastatic melanoma NEUROLOGIC: Without facial droop or slurred speech - Assessment and Plan (1) Healthcare-associated pneumonia Current Visit: Yes Status: Acute Assessment and Plan: Weakness, fatigue, cough and shortness of breath Immunocompromised with metastatic melanoma and right breast cancer Multiple recent hospital stays including recent admission to [facility] for rehabilitation Chest x-ray shows consolidation consistent with combination of airspace disease/ pneumonia Being treated for healthcare acquired pneumonia--organism unclear Continue treatment with broad-spectrum antibiotics including vancomycin, Levaquin and Zosyn De-escalate antibiotics according to patient's response and blood culture results Does not appear to be toxic at this time Continue to closely monitor Check CBC, BMP daily Ambulate 3 times a day, up in chair 3 times a day Incentive spirometer Oxygen supplementation PRN Falls/safety precautions and up with assist only (2) UTI (urinary tract infection) Current Visit: Yes Status: Acute Assessment and Plan: Urinalysis positive for moderate leukocyte esterase but negative for nitrites Patient presented with weakness and fatigue. Also, she is immunocompromised secondary to right breast cancer and metastatic melanoma High-risk for infections, continue to treat with Levaquin which is also being given for her HCAP Urine sent for culture--follow up with results (3) Lymph node enlargement Current Visit: Yes Status: Acute Assessment and Plan: Enlargement of right groin lymph node secondary to metastatic spread of melanoma from right foot and calf. She is currently being treated with immunotherapy at the [facility].--Recent scans at [facility] negative for abdominal organ, or lung metastasis. Monitor. (4) Cancer of right female breast Current Visit: No Status: Chronic (5) Diabetes Current Visit: No Status: Chronic (6) HLD (hyperlipidemia) Current Visit: No Status: Chronic (7) HTN (hypertension) Current Visit: No Status: Chronic (8) Malignant melanoma of right foot Current Visit: No Status: Chronic (9) Generalized weakness Current Visit: No Status: Chronic (10) GERD (gastroesophageal reflux disease) Current Visit: No Status: Chronic - Time Spent with Patient Total time spent is greater than 50% in coordination of care (as documented) at patient's floor/unit and/or counseling patient: less than 15 minutes Plan of Care Discussed with: patient Internal Medicine: Result - Labs CBC & Chem 7: 03/20/18 03:57 03/20/18 03:57 Labs: Short CBC 03/20/18 Range/Units 03:57 WBC 6.6 (4.3-11.1) K/mcL Hgb 12.8 (11.5-15.4) g/dL Hct 38.2 (35.3-44.9) % Plt Count 221 (140-400) K/mcL Neutrophils # 5.1 (1.6-8.9) K/mcL BMP 03/20/18 03:57 Sodium 136 Potassium 3.5 Chloride 99 Carbon Dioxide 26 BUN 17 Creatinine 0.58 L Glucose 78 Calcium 8.3 L Cardiac Enzymes 03/20/18 Range/Units 07:57 Troponin I < 0.03 (< 0.04) ng/mL Consult Discharge Plan - Plan Referrals: Rojas Campoverde MD [Primary Care Provider] - 04/04/18 10:00 am (2) UTI (urinary tract infection) Qualifiers: Urinary tract infection type: acute cystitis Hematuria presence: without hematuria Qualified Code(s): N30.00 - Acute cystitis without hematuria (4) Cancer of right female breast Qualifiers: Breast location: unspecified site of breast Estrogen receptor status: unspecified Qualified Code(s): C50.911 - Malignant neoplasm of unspecified site of right female breast (5) Diabetes Qualifiers: Diabetes mellitus type: type 2 Diabetes mellitus half-way insulin use: with icd 9 coder use Diabetes mellitus complication status: with unspecified complications Qualified Code(s): E11.8 - Type 2 diabetes mellitus with unspecified complications; Z79.4 - sld teacher (current) use of insulin (6) HLD (hyperlipidemia) Qualifiers: Hyperlipidemia type: pure hypercholesterolemia Qualified Code(s): E78.00 - Pure hypercholesterolemia, unspecified; E78.0 - Pure hypercholesterolemia (7) HTN (hypertension) Qualifiers: Hypertension type: essential hypertension Qualified Code(s): I10 - Essential (primary) hypertension (10) GERD (gastroesophageal reflux disease) Qualifiers: Esophagitis presence: without esophagitis Qualified Code(s): K21.9 - Gastro- esophageal reflux disease without esophagitis
--- NOTE | 2018-03-20 16:59 | Infectious Disease Consult ---
Date of Encounter: 03/20/18 Time of Encounter: 16:58 Assessment and Plan (1) Healthcare-associated pneumonia Status: Acute Assessment and plan: Location: Left lung. Causative organism: Unclear. Recently hospitalized at [facility] and [facility]. CXR showed retrocardia opacity consistent with airspace disease or pneumonia and small left pleural effusion. No SIRS criteria, but the patient's depressed immune system may hinder development of SIRS criteria. Unable to get sputum since the patient is not having a cough. Check S. pneumo and Legionella UAT. Continue Levaquin 750mg IV daily for now. It UATs are negative, can discontinue. Continue Zosyn 3.375 grams IV Q8H. Continue Vancomycin IV. Pharmacy to dose. Goal trough ~15. Duration of treatment depends on the clinical picture, but likely a total of 10 days. Monitor renal function and for drug toxicity and dose-adjust antibiotics. (2) Dehydration Status: Resolved Assessment and plan: Likely secondary to poor PO intake. Appears improved. Management per the primary team. (3) Malignant melanoma of right foot Status: Chronic Assessment and plan: Diagnosed in 2015 status post excision x 2, currently on immunotherapy per [facility]. Stable per patient's report. States last immunotherapy in early February. (4) Generalized weakness Status: Chronic Assessment and plan: Likely multifactorial: deconditioning, dehydration, immunotherapy. PT/OT to evaluate and treat. (5) Thrush Status: Acute Assessment and plan: Appears resolved. Continue Nystatin PO. (6) Lymph node enlargement Status: Acute Assessment and plan: Secondary to malignant melanoma, but previous biopsies have been negative for mets. (7) Vasovagal syncope Status: Resolved (8) Diabetes Status: Chronic Assessment and plan: Recommend aggressive glucose monitoring and control to promote wound healing and prevent re-infection. Management per the primary team. Qualifiers: Diabetes mellitus type: type 2 Diabetes mellitus terminal carman insulin use: with terminal carman use Diabetes mellitus complication status: with unspecified complications Qualified Code(s): E11.8 - Type 2 diabetes mellitus with unspecified complications; Z79.4 - nursing home (current) use of insulin (9) HLD (hyperlipidemia) Status: Chronic Qualifiers: Hyperlipidemia type: pure hypercholesterolemia Qualified Code(s): E78.00 - Pure hypercholesterolemia, unspecified; E78.0 - Pure hypercholesterolemia (10) HTN (hypertension) Status: Chronic Qualifiers: Hypertension type: essential hypertension Qualified Code(s): I10 - Essential (primary) hypertension (11) GERD (gastroesophageal reflux disease) Status: Chronic Qualifiers: Esophagitis presence: without esophagitis Qualified Code(s): K21.9 - Gastro -esophageal reflux disease without esophagitis Infectious Disease HPI - Data of Consult Patient: new to practice Consult date: 03/20/18 Requesting Physician: Ross Leo MD Primary Care Provider: Rojas Campoverde MD - Consult Narrative Reason for consult: PNA History of present illness: Ms. Valerio is a 72 year old female with a remote history of left-sided breast cancer diagnosed in 2001 status post chemotherapy, radiation, oral Arimidex, and lumpectomy with recurrence in the right breast diagnosed last year, malignant melanoma of the right foot diagnosed in 2014 currently on immunotherapy, CAD status post cardiac stents, diabetes, hyperlipidemia, hypertension, and vasovagal syndrome. The patient was admitted to the hospital March 18 for pneumonia and UTI. We are consulted March 20 for further antibiotic recommendations for pneumonia. The patient is a 72-year-old female with past medical history as stated above. The patient states that she was diagnosed with dehydration last month and spent 5 days at the [facility] to receive IV fluids. She was discharged to a local rehabilitation inpatient unit where she stayed for 5 days. She was discharged about 10 days ago and had progressively worsening generalized weakness, shortness of breath, and dry cough. She presented to the emergency department down at [facility] for evaluation. Upon arrival, she was afebrile and hemodynamically stable. Her white blood cell count was normal. She had a chest x-ray that showed a left retrocardiac consolidation consistent with airspace disease or pneumonia and a small left pleural effusion. She was given a dose of Levaquin and was originally going to be discharged home, but instead was transferred here for further evaluation. The patient has remained afebrile and hemodynamically stable. She was started on Vanco, Zosyn, and Levaquin upon arrival. Labs completed here with a lactic acid that was normal. LFTs were within normal limits as well. Urinalysis was obtained that appeared contaminated. Urine culture was negative. Blood cultures obtained March 19 are no growth 2 sets. She did have an episode this morning where it seems like she battled down and was unconscious for a short period of time, but responded to painful stimuli and eventually came to on her own. Her EKG and troponin after the event were negative. Currently, she is on Levaquin, vancomycin, and Zosyn. We have been asked to evaluate and make further recommendations. Today, the patient's endorses the history as stated above. She denies any fevers or chills or rigors. She reports she was having some intermittent headaches, but no neck pain or stiffness. She denies any upper respiratory infection symptoms. She does report some shortness of breath with exertion and a dry cough. She denies any chest pain at this time. She reports persistent nausea and has been ongoing for the past month that has led to poor by mouth intake and subsequently dehydration that ended up the last month. She denies any vomiting. She reports diarrhea that is chronic for her. She denies any abdominal pain. She does report chronic low back pain that appears to be her baseline. She denies any skin lesions. She does reports she was recently treated for oral thrush. She lives at home alone. She does not work outside the home and is retired. She denies any tobacco, alcohol, or illicit drug use. CC: Ross Leo MD Past Med Surg Social Fam HX - Past Medical History Attestation: Yes The following information was validated with the patient. Source: patient, old records reviewed, nursing notes reviewed Medical history: cancer, coronary artery disease, diabetes, hyperlipidemia, hypertension, myocardial infarction, osteoporosis, syncope Additional medical history: Breast cancer, Melanoma- Right foot, RLE, right groin, Stage 3. Psychiatric history: no psych history - Past Surgical History Surgical History: breast surgery (lumpectomy 2001) Additional surgical history: Heart stent, Skin Graphs, Lymph node removal, Incision of the right foot. - Social History Smoking Status: Never smoker Smokeless Tobacco Status: No Alcohol use: rarely Drug use: none Occupational status: retired Current living situation: Home - Independent Activity Level: Independent ambulation Recent Out of Country Travel Within the Last 8 Weeks: No Exposure or Possible Exposure to Illness During Travel: No - Family History Father Family Member Ethnicity: Non- Living Status: Hx Family Cardiac Disorders: Yes ([place], HTN) Hx Family GI Disorders: Yes (Ulcers) Hx Family Endocrine Disorder: Yes (Gallstones, DM) Mother Family Member Ethnicity: Non- Living Status: Hx Family Cardiac Disorders: Yes (Tachycardia) Hx Family Cancer: Yes (Melanoma, Breast) Brother Family Member Ethnicity: Non- Living Status: Hx Family Cardiac Disorders: Yes (KS) Hx Family Cancer: Yes (Melanoma) Hx Family GI Disorders: Yes (Ulcers) Infectious Disease-CN:Meds Ascorbic Acid [Vitamin C] 500 mg PO DAILY #0 05/19/15 [History] Biotin 1 mg PO DAILY 05/19/15 [History] Cholecalciferol (D-3) [Vitamin D] 5,000 unit PO DAILY #0 05/19/15 [History] Pravastatin Sodium [Pravachol] 20 mg PO HS 05/19/15 [History] Vitamin E Acid Succinate [Vitamin E] 800 units PO DAILY #0 05/19/15 [History] Aspirin Enteric Coated [Aspirin EC] 81 mg PO DAILY 01/10/16 [History] Anastrozole [Arimidex] 1 mg PO DAILY 05/08/17 [History] Carvedilol 3.125 mg PO BID 05/08/17 [History] Esomeprazole Magnesium [Nexium] 40 mg PO DAILY 05/08/17 [History] Lisinopril 2.5 mg PO DAILY 05/08/17 [History] Nitroglycerin [Nitrostat] 0.4 mg SL Q5M PRN 05/08/17 [History] Polyethylene Glycol 3350 [MiraLAX] 17 gm PO DAILY PRN 05/08/17 [History] Potassium Chloride 10 meq PO DAILY #30 tab.er.prt 03/12/18 [Rx] Ferrous Gluconate 324 mg PO DAILY 03/19/18 [History] Insulin Glargine [Lantus] 20 unit SQ HS PRN 03/19/18 [History] Levofloxacin [Levaquin] 750 mg PO QDPC #4 tablet 03/19/18 [Rx] Nystatin [Nystatin Suspension] 100,000 units PO QID 03/19/18 [History] Ondansetron HCl [Zofran] 4 mg PO Q8HR PRN #21 tab 03/19/18 [Rx] 3 Allergy/AdvReac Type Severity Reaction Status Date / Time atorvastatin [From Lipitor] Allergy Muscle Pain Verified 01/10/16 18:31 codeine Allergy See Verified 03/17/15 21:29 Comments All systems: reviewed and no additional remarkable complaints except as stated Exam - Constitutional Vitals: Temp Pulse Resp BP Pulse Ox 98.2 F 88 16 101/66 100 03/20/18 15:26 03/20/18 15:26 03/20/18 15:26 03/20/18 15:26 03/20/18 15:26 General appearance: cooperative, no acute distress, thin - Head Head exam: Present: atraumatic, normal inspection, normocephalic - Eye Eye exam: Present: EOMI, normal appearance, PERRL Pupils: Present: normal accommodation - ENT ENT exam: Present: mucous membranes dry - Neck Neck exam: Present: normal inspection - Respiratory Respiratory exam: Present: CTAB. Absent: rales, respiratory distress, rhonchi, wheezes - Cardiovascular Cardiovascular exam: Present: RRR, +S1, +S2 - GI/Abdominal GI/Abdominal exam: Present: normal bowel sounds, soft. Absent: distended, tenderness - Extremities Exam Extremities exam: Present: normal inspection. Absent: joint swelling, pedal edema, tenderness Additional comments: Surgical scar noted to the medial aspect of the right foot. - Neurological Exam Neurological exam: Present: alert, oriented X3, no focal deficits - Psychiatric Psychiatric exam: Present: normal affect, normal mood - Skin Skin exam: Present: dry, intact, normal color, warm Infectious Disease CN: Results - Labs CBC & Chem 7: 03/20/18 03:57 03/20/18 03:57 Consult Discharge Plan - Plan Referrals: Rojas Campoverde MD [Primary Care Provider] - 04/04/18 10:00 am
[2018-03-20] MEDS: Insulin DETEMIR 100 UNIT/ML X5UNITS SQ SCH (21:22)
[2018-03-21] MEDS: Ondansetron 4 MG/2 ML VIAL IVP PRN ×3 (02:44→22:43)
[2018-03-21] MEDS: 0.9 % Sodium Chloride 1,000 ML IVC SCH ×2 (02:44→17:47)
[2018-03-21 04:23] LABS: Basophils % 0.3 %; Eosinophils % 0.3 %; Immature Granulocytes % 0.7 % (0-4); Lymphocytes # 0.7 K/mcL (0.6-4.6); Lymphocytes % 12.6 %; Mean Corpuscular HGB Conc 33.2 g/dL (31.6-35.5); Mean Corpuscular Hemoglobin 31.5 pg (28.0-33.3); Mean Corpuscular Volume 94.8 fL (83.0-100.0); Mean Platelet Volume 9.7 fL (9.4-12.4); Monocytes # 0.5 K/mcL (0.0-1.3); Monocytes % 8.6 %; Neutrophils # 4.5 K/mcL (1.6-8.9); Platelet Count 172 K/mcL (140-400); Red Blood Count 3.27 M/mcL (3.82-4.97); Red Cell Distribution Width 14.9 % (11.5-14.5); Segmented Neutrophils % 77.5 %
[2018-03-21 04:25] LABS: Hemoglobin 10.3 g/dL (11.5-15.4)
[2018-03-21 04:44] LABS: BUN/Creatinine Ratio 28 (6-26); Blood Urea Nitrogen 16 mg/dL (8-23); Calcium 6.1 mg/dL (8.6-10.3); Carbon Dioxide 18 mEq/L (23-29); Chloride 111 mEq/L (98-107); Glucose 80 mg/dL (70-105); Osmolality,Calculated 288 (280-300); Potassium 2.7 mEq/L (3.5-5.1); Sodium 139 mEq/L (136-145); eGFR For Non-African Americans > 60 (> 60)
[2018-03-21] MEDS: *HR* Heparin 5,000 UNIT/ML VIAL SQ SCH ×2 (05:14→17:51)
[2018-03-21] MEDS: Piperacillin/Tazobactam 3.375 GM in 0.9 % Sodium Chloride Mini Bag 100 ML IVPB SCH ×3 (05:17→22:40)
[2018-03-21] MEDS ORDERED: Potassium Chloride 40 MEQ, Lidocaine 1% 2 ML in D5% in Water 500 ML IVPB ONE (08:11)
[2018-03-21] MEDS: Insulin LISPRO 300 UNITS/3 ML VIAL SQ SCH ×3 (09:14→17:35)
[2018-03-21] MEDS: Nystatin SUSP 5 ML UD.LIQ PO SCH ×4 (09:19→20:28)
[2018-03-21] MEDS: Ascorbic Acid 500 MG TABLET PO SCH (09:26)
[2018-03-21] MEDS: Aspirin Enteric Coated 81 MG Tablet PO SCH (09:26)
[2018-03-21] MEDS: Cholecalciferol (D-3) 1,000 UNIT TABLET PO SCH (09:27)
[2018-03-21] MEDS: Anastrozole 1 MG TABLET PO SCH (09:27)
[2018-03-21] MEDS: (Biotin [Biotin] 1 MG) PO SCH (10:07)
--- NOTE | 2018-03-21 10:30 | Infectious Disease Progress No ---
Date of Encounter: 03/21/18 Time of Encounter: 09:20 - Assessment and Plan (1) Healthcare-associated pneumonia Current Visit: Yes Status: Acute Location: Left lung. Causative organism: Unclear. Recently hospitalized at [facility] and [place] [facility]. CXR showed retrocardia opacity consistent with airspace disease or pneumonia and small left pleural effusion. No SIRS criteria, but the patient's depressed immune system may hinder development of SIRS criteria. Unable to get sputum since the patient is not having a cough. Check S. pneumo and Legionella UAT. Discussed collecting the specimen with nursing. May need to straight cath if patient unable to give specimen. Continue Levaquin 750mg IV daily for now. It UATs are negative, can discontinue. Day 3 Continue Zosyn 3.375 grams IV Q8H. Day 3 Continue Vancomycin IV. Pharmacy to dose. Goal trough ~15. Day 3 Duration of treatment depends on the clinical picture, but likely a total of 10 days. Monitor renal function and for drug toxicity and dose-adjust antibiotics. (2) Dehydration Current Visit: No Status: Resolved Likely secondary to poor PO intake. Appears improved. Management per the primary team. (3) Malignant melanoma of right foot Current Visit: No Status: Chronic Diagnosed in 2015 status post excision x 2, currently on immunotherapy per [facility]. Stable per patient's report. States last immunotherapy in early February. (4) Generalized weakness Current Visit: No Status: Chronic Likely multifactorial: deconditioning, dehydration, immunotherapy. PT/OT to evaluate and treat. (5) Thrush Current Visit: No Status: Acute Appears resolved. Continue Nystatin PO. (6) Lymph node enlargement Current Visit: Yes Status: Acute Secondary to malignant melanoma, but previous biopsies have been negative for mets. (7) Vasovagal syncope Current Visit: No Status: Resolved (8) Diabetes Current Visit: No Status: Chronic Recommend aggressive glucose monitoring and control to promote wound healing and prevent re-infection. Management per the primary team. Qualifiers: Diabetes mellitus type: type 2 Diabetes mellitus physical instructor insulin use: with mcfp use Diabetes mellitus complication status: with unspecified complications Qualified Code(s): E11.8 - Type 2 diabetes mellitus with unspecified complications; Z79.4 - deliverer pharmacy (current) use of insulin (9) HLD (hyperlipidemia) Current Visit: No Status: Chronic Qualifiers: Hyperlipidemia type: pure hypercholesterolemia Qualified Code(s): E78.00 - Pure hypercholesterolemia, unspecified; E78.0 - Pure hypercholesterolemia (10) HTN (hypertension) Current Visit: No Status: Chronic Qualifiers: Hypertension type: essential hypertension Qualified Code(s): I10 - Essential (primary) hypertension (11) GERD (gastroesophageal reflux disease) Current Visit: No Status: Chronic Qualifiers: Esophagitis presence: without esophagitis Qualified Code(s): K21.9 - Gastro -esophageal reflux disease without esophagitis (12) Anorexia Current Visit: Yes Status: Acute The patient reports very little PO intake for the past week. States nothing tastes good to her. Per nursing, patient non-compliant with nutritional supplements. Consider nutrition consult for further recommendations. - Subjective Interval history: Patient seen and examined. No acute events noted overnight. Patient states she continues to feel poorly this morning. She states she is nauseated and has been having dry heaves. She tells me she hasn't eaten anything in a week. She states she has only voided once since being admitted. She denies shortness of breath or chest pain, but does report a dry cough. Denies abdominal pain or urinary complaints. Denies oral thrush or new skin lesions at this time. Discussed the patient's reports of not eating for a week and her lack of urine output with nursing. Per nursing, the patient has been non-compliant with the nutritional supplements offered to her and does not want to participate in her care in order to get better. She did void just once yesterday, but the patient was started on IV fluids overnight and she is now on strict I's and O's. Infect Dis PN-Objective Data - Labs CBC & Chem 7: 03/21/18 03:51 03/21/18 03:51 Labs: Laboratory Results - last 24 hr 03/20/18 03/20/18 03/20/18 07:40 11:34 16:45 WBC RBC Hgb Hct MCV MCH MCHC RDW Plt Count MPV Immature Gran % Seg Neutrophils % Lymphocytes % Monocytes % Eosinophils % Basophils % Neutrophils # Lymphocytes # Monocytes # Eosinophils # Basophils # Sodium Potassium Chloride Carbon Dioxide BUN Creatinine Est GFR ( Amer) Est GFR (Non-Af Amer) BUN/Creatinine Ratio Glucose POC Glucose 75 97 77 Calculated Osmolality Calcium Vancomycin Trough 03/20/18 03/20/18 03/21/18 17:55 20:46 03:51 WBC 5.8 RBC 3.27 L Hgb 10.3 L D Hct 31.0 L MCV 94.8 MCH 31.5 MCHC 33.2 RDW 14.9 H Plt Count 172 MPV 9.7 Immature Gran % 0.7 Seg Neutrophils % 77.5 Lymphocytes % 12.6 Monocytes % 8.6 Eosinophils % 0.3 Basophils % 0.3 Neutrophils # 4.5 Lymphocytes # 0.7 Monocytes # 0.5 Eosinophils # 0.0 Basophils # 0.0 Sodium Potassium Chloride Carbon Dioxide BUN Creatinine Est GFR ( Amer) Est GFR (Non-Af Amer) BUN/Creatinine Ratio Glucose POC Glucose 84 Calculated Osmolality Calcium Vancomycin Trough 17 H 03/21/18 03:51 WBC RBC Hgb Hct MCV MCH MCHC RDW Plt Count MPV Immature Gran % Seg Neutrophils % Lymphocytes % Monocytes % Eosinophils % Basophils % Neutrophils # Lymphocytes # Monocytes # Eosinophils # Basophils # Sodium 139 Potassium 2.7 L Chloride 111 H Carbon Dioxide 18 L BUN 16 Creatinine 0.57 L Est GFR ( Amer) > 60 Est GFR (Non-Af Amer) > 60 BUN/Creatinine Ratio 28 H Glucose 80 POC Glucose Calculated Osmolality 288 Calcium 6.1 L Vancomycin Trough Exam - Constitutional Vitals: Temp Pulse Resp BP Pulse Ox 98.2 F 75 16 117/68 96 03/21/18 08:16 03/21/18 08:16 03/21/18 08:16 03/21/18 08:16 03/21/18 08:16 General appearance: cooperative, no acute distress, thin - Head Head exam: Present: atraumatic, normal inspection, normocephalic - Eye Eye exam: Present: EOMI, normal appearance, PERRL Pupils: Present: normal accommodation - ENT ENT exam: Present: mucous membranes moist - Neck Neck exam: Present: normal inspection - Respiratory Respiratory exam: Present: CTAB. Absent: rales, respiratory distress, rhonchi, wheezes - Cardiovascular Cardiovascular exam: Present: RRR, +S1, +S2 - GI/Abdominal GI/Abdominal exam: Present: normal bowel sounds, soft. Absent: distended, tenderness - Extremities Exam Extremities exam: Present: normal inspection. Absent: joint swelling, pedal edema, tenderness - Neurological Exam Neurological exam: Present: alert, oriented X3, no focal deficits - Psychiatric Psychiatric exam: Present: normal affect, normal mood - Skin Skin exam: Present: dry, intact, normal color, warm Consult Discharge Plan - Plan Referrals: Rojas Campoverde MD [Primary Care Provider] - 04/04/18 10:00 am
[2018-03-21] MEDS: Levofloxacin 750 MG/150 ML 750 MG/150 ML BAG IVPB SCH (11:51)
--- NOTE | 2018-03-21 12:00 | Internal Med Progress Note ---
Hospitalist Progress Note - Encounter Date of Encounter: 03/21/18 Time of Encounter: 11:00 - Subjective Interval History: Patient seen and examined at bedside today w/continued report of weakness and SOB. On exam, pt. appears to be in a pleasant mood, continues to report shortness of breath with activity as well as nonproductive cough. Also reports reduced appetite and intake d/t loss of taste from previous thrush. Discussed possibility of PO supplementation w/Boost and/or Ensure and pt. reports she cannot drink those d/t reflux. Discussed plan of care including increasing PO intake, continuation of IVPB antibiotics, and additional Legionella and strep pneumoniae cultures. Pt. verbalizes understanding and denies any questions at this time. - Exam Vitals: Temp Pulse Resp BP Pulse Ox 98.2 F 75 16 117/68 96 03/21/18 08:16 03/21/18 08:16 03/21/18 08:16 03/21/18 08:16 03/21/18 08:16 - Assessment and Plan (1) Healthcare-associated pneumonia Current Visit: Yes Status: Acute Assessment and Plan: Pt. seen by ID Continued weakness, fatigue, cough and shortness of breath Immunocompromised with metastatic melanoma and right breast cancer Multiple recent hospital stays including recent admission to [facility] for rehabilitation Chest x-ray shows consolidation consistent with combination of airspace disease/ pneumonia Being treated for healthcare acquired pneumonia-organism unclear Add Legionella and strep pneumoniae antigens Continue treatment with broad-spectrum antibiotics including vancomycin, Levaquin and Zosyn Will de-escalate antibiotics according to patient's response and blood culture results Does not appear to be toxic at this time Continue to closely monitor Check CBC, BMP daily Ambulate 3 times a day, up in chair 3 times a day Incentive spirometer Oxygen supplementation PRN Falls/safety precautions and up with assist only (2) UTI (urinary tract infection) Current Visit: Yes Status: Acute Assessment and Plan: Urinalysis positive for moderate leukocyte esterase but negative for nitrites Patient is immunocompromised secondary to right breast cancer and metastatic melanoma High-risk for infections, continue to treat with Levaquin which is also being given for her HCAP Urine sent for culture--follow up with results Will follow ID recommendations (3) Lymph node enlargement Current Visit: Yes Status: Acute Assessment and Plan: Continued enlargement of right groin lymph node secondary to metastatic spread of melanoma from right foot and calf. She is currently being treated with immunotherapy at the [facility] for abdominal organ, or lung metastasis. Monitor. (4) Hypokalemia Current Visit: Yes Status: Acute Assessment and Plan: Acute hypokalemia w/potassium of 2.7. IVPB potassium w/lidocaine 40 mEq. Monitor f/u labs. Add tele. (5) Hypocalcemia Current Visit: Yes Status: Acute Assessment and Plan: Acute hypocalcemia w/calcium of 6.1 today. Add calcium carbonate PO TID and monitor f/u labs. (6) Diabetes Current Visit: Yes Status: Chronic Assessment and Plan: Chronic, fingerstick blood glucose stable Continue basal insulin at night Continue low-dose sliding scale Monitor glucose ACHS (7) HLD (hyperlipidemia) Current Visit: Yes Status: Chronic Assessment and Plan: Hx of chronic HLD. Continue home meds. (8) HTN (hypertension) Current Visit: Yes Status: Chronic Assessment and Plan: BP remains stable, continue home meds. (9) Generalized weakness Current Visit: Yes Status: Chronic Assessment and Plan: In the setting of healthcare acquired pneumonia Also, patient has history of metastatic melanoma and right breast cancer She was recently released from [facility] for rehabilitation PT/OT while inpatient--consult vp digital marketing social media and crm for discharge planning as the patient may benefit from additional rehabilitation (10) GERD (gastroesophageal reflux disease) Current Visit: Yes Status: Chronic Assessment and Plan: Chronic, continue pts. Nexium. Pt. reports nausea overnight. Add Reglan. (11) Cancer of right female breast Current Visit: No Status: Chronic Assessment and Plan: Cancer of right breast--estrogen positive Being treated at the [facility] Continue txs as OP DVT Prophylaxis: Heparin 5000 units SQ every 12 for DVT prophylaxis. Monitor patient for signs of bleeding. - Time Spent with Patient Total time spent is greater than 50% in coordination of care (as documented) at patient's floor/unit and/or counseling patient: less than 15 minutes Plan of Care Discussed with: patient Internal Medicine: Result - Labs CBC & Chem 7: 03/21/18 03:51 03/21/18 03:51 Labs: Short CBC 03/21/18 Range/Units 03:51 WBC 5.8 (4.3-11.1) K/mcL Hgb 10.3 L D (11.5-15.4) g/dL Hct 31.0 L (35.3-44.9) % Plt Count 172 (140-400) K/mcL Neutrophils # 4.5 (1.6-8.9) K/mcL BMP 03/21/18 03:51 Sodium 139 Potassium 2.7 L Chloride 111 H Carbon Dioxide 18 L BUN 16 Creatinine 0.57 L Glucose 80 Calcium 6.1 L Consult Discharge Plan - Plan Referrals: Rojas Campoverde MD [Primary Care Provider] - 04/04/18 10:00 am (2) UTI (urinary tract infection) Qualifiers: Urinary tract infection type: acute cystitis Hematuria presence: without hematuria Qualified Code(s): N30.00 - Acute cystitis without hematuria (6) Diabetes Qualifiers: Diabetes mellitus type: type 2 Diabetes mellitus termite control servicer insulin use: with mcc use Diabetes mellitus complication status: with unspecified complications Qualified Code(s): E11.8 - Type 2 diabetes mellitus with unspecified complications; Z79.4 - terminal system operator (current) use of insulin (7) HLD (hyperlipidemia) Qualifiers: Hyperlipidemia type: pure hypercholesterolemia Qualified Code(s): E78.00 - Pure hypercholesterolemia, unspecified; E78.0 - Pure hypercholesterolemia (8) HTN (hypertension) Qualifiers: Hypertension type: essential hypertension Qualified Code(s): I10 - Essential (primary) hypertension (10) GERD (gastroesophageal reflux disease) Qualifiers: Esophagitis presence: without esophagitis Qualified Code(s): K21.9 - Gastro- esophageal reflux disease without esophagitis (11) Cancer of right female breast Qualifiers: Breast location: unspecified site of breast Estrogen receptor status: unspecified Qualified Code(s): C50.911 - Malignant neoplasm of unspecified site of right female breast
--- NOTE | 2018-03-21 17:57 | Electrocardiograph Report ---
[address] [place] [address] Test Date: 2018-03-20 Pat Name: Fanny Valerio Department: 113 Room: 3B24 Gender: F Adult Psychiatrist: KATHIA : 1945 Requested By: Ross Leo Order Number: [id number] Reading MD: Lula Farrar Measurements Intervals [place] Rate: 73 P: 33 WV: 140 QRS: 7 QRSD: 75 T: 87 QT: 399 QTc: 425 Interpretive Statements SINUS RHYTHM LOW QRS VOLTAGE IN EXTREMITY LEADS POSSIBLE OLD SEPTAL OR Electronically Signed On 03-21-2018 17:56:00 EDT by Lula Farrar
[2018-03-21] MEDS: Insulin DETEMIR 100 UNIT/ML X5UNITS SQ SCH (20:34)
[2018-03-22] MEDS: 0.9 % Sodium Chloride 1,000 ML IVC SCH ×3 (03:41→14:58)
[2018-03-22 03:46] LABS: Basophils % 0.5 %; Eosinophils % 0.5 %; Hematocrit 36.2 % (35.3-44.9); Immature Granulocytes % 0.5 % (0-4); Lymphocytes % 13.2 %; Mean Corpuscular Hemoglobin 31.5 pg (28.0-33.3); Mean Corpuscular Volume 92.8 fL (83.0-100.0); Mean Platelet Volume 10.6 fL (9.4-12.4); Monocytes # 0.7 K/mcL (0.0-1.3); Monocytes % 8.9 %; Neutrophils # 5.8 K/mcL (1.6-8.9); Platelet Count 150 K/mcL (140-400); Red Cell Distribution Width 14.8 % (11.5-14.5); Segmented Neutrophils % 76.4 %
[2018-03-22 03:50] LABS: Hemoglobin 12.3 g/dL (11.5-15.4)
[2018-03-22 03:57] LABS: BUN/Creatinine Ratio 28 (6-26); Blood Urea Nitrogen 19 mg/dL (8-23); Carbon Dioxide 22 mEq/L (23-29); Chloride 104 mEq/L (98-107); Glucose 129 mg/dL (70-105); Osmolality,Calculated 284 (280-300); Potassium 4.5 mEq/L (3.5-5.1); Sodium 135 mEq/L (136-145); eGFR For Non-African Americans > 60 (> 60)
[2018-03-22] MEDS: Piperacillin/Tazobactam 3.375 GM in 0.9 % Sodium Chloride Mini Bag 100 ML IVPB SCH ×3 (05:34→21:46)
[2018-03-22] MEDS: *HR* Heparin 5,000 UNIT/ML VIAL SQ SCH ×2 (05:53→17:37)
[2018-03-22] MEDS: Insulin LISPRO 300 UNITS/3 ML VIAL SQ SCH ×3 (08:25→17:37)
[2018-03-22] MEDS: Nystatin SUSP 5 ML UD.LIQ PO SCH ×4 (08:30→21:43)
[2018-03-22] MEDS: Ascorbic Acid 500 MG TABLET PO SCH (08:31)
[2018-03-22] MEDS: Aspirin Enteric Coated 81 MG Tablet PO SCH (08:31)
[2018-03-22] MEDS: Anastrozole 1 MG TABLET PO SCH (08:31)
[2018-03-22] MEDS: Cholecalciferol (D-3) 1,000 UNIT TABLET PO SCH (08:31)
[2018-03-22] MEDS: Levofloxacin 750 MG/150 ML 750 MG/150 ML BAG IVPB SCH (08:32)
[2018-03-22] MEDS: (Biotin [Biotin] 1 MG) PO SCH (08:32)
[2018-03-22] MEDS: Metoclopramide 10 MG/2 ML VIAL IVP PRN (11:45)
--- NOTE | 2018-03-22 14:26 | Internal Med Progress Note ---
Hospitalist Progress Note - Encounter Date of Encounter: 03/22/18 Time of Encounter: 09:00 - Subjective Interval History: Patient seen and examined at bedside today w/continued report of weakness, SOB, nausea, and loss of appetite. On exam, pt. appears to be in a pleasant mood, continues to report nausea and no taste for food or fluids. Discussed need for PO supplementation/oral intake in order to improve strength. Will have to consider NG tube placement if patient is unable/unwilling to increase oral intake. Pt. states that she ate some scrambled eggs this a.m. I encouraged her to try pudding or milkshakes w/Ensure and ice cream. Discussed plan of care including increasing PO intake, continuation of IVPB antibiotics, falls/safety precautions and up with assist only. Pt. verbalizes understanding and denies any questions at this time. - Exam Vitals: Temp Pulse Resp BP Pulse Ox 97.3 F L 80 16 124/82 96 03/22/18 11:14 03/22/18 11:14 03/22/18 11:14 03/22/18 11:14 03/22/18 11:14 Exam: PHYSICAL EXAMINATION: GENERAL: The patient is an ill appearing female with report of nausea, reduced intake, weakness and SOB. She is alert and oriented x3. HEENT: Head is normocephalic and atraumatic. Extraocular muscles are intact. Pupils are equal, round, and reactive to light and accommodation. Nares appeared normal. Mouth is well hydrated and without lesions. Mucous membranes are moist. NECK: Supple. No carotid bruits. No lymphadenopathy or thyromegaly. LUNGS: Clear on auscultation. HEART: Regular rate and rhythm. No JVD noted ABDOMEN: Soft, nontender, and nondistended. Positive bowel sounds. No hepatosplenomegaly was noted. EXTREMITIES: Without any cyanosis, clubbing, rash, lesions. NEUROLOGIC: Cranial nerves II through XII are grossly intact. PSYCHIATRIC: Mildly anxious affect and mood. SKIN: Dry and intact. - Assessment and Plan (1) Healthcare-associated pneumonia Current Visit: Yes Status: Acute Assessment and Plan: Pt. seen by ID Continued weakness, fatigue, cough and shortness of breath Immunocompromised with metastatic melanoma and right breast cancer Multiple recent hospital stays including recent admission to [facility] for rehabilitation Chest x-ray showed consolidation consistent with combination of airspace disease /pneumonia. Repeat CXR to assess for PNA improvement. Legionella and strep pneumoniae antigens negative Continue treatment with broad-spectrum antibiotics including vancomycin, Levaquin and Zosyn Will de-escalate antibiotics according to patient's response and blood culture results Does not appear to be toxic at this time. WBC WNL Repeat U/A Continue to closely monitor Check CBC, BMP daily Ambulate 3 times a day, up in chair 3 times a day Incentive spirometer Oxygen supplementation PRN Falls/safety precautions and up with assist only (2) UTI (urinary tract infection) Current Visit: Yes Status: Acute Assessment and Plan: Urinalysis positive for moderate leukocyte esterase but negative for nitrites Patient is immunocompromised secondary to right breast cancer and metastatic melanoma High-risk for infections, continue to treat with Levaquin which is also being given for her HCAP Repeat U/A today (3) Dehydration Current Visit: Yes Status: Acute Assessment and Plan: Resolving w/IV fluids. Most likely d/t poor oral intake. Will continue to monitor pt. and f/u labs. (4) Lymph node enlargement Current Visit: Yes Status: Acute Assessment and Plan: Continued enlargement of right groin lymph node secondary to metastatic spread of melanoma from right foot and calf. She is currently being treated with immunotherapy at the [facility].-Recent scans at [facility] negative for abdominal organ, or lung metastasis. Monitor. (5) Hypocalcemia Current Visit: Yes Status: Acute Assessment and Plan: Acute hypocalcemia w/improved calcium of 8.0 today. Continue calcium carbonate PO TID which may help w/nausea. Monitor f/u labs. (6) Diabetes Current Visit: Yes Status: Chronic Assessment and Plan: Chronic, fingerstick blood glucose stable Continue basal insulin at night Continue low-dose sliding scale Monitor glucose ACHS (7) HLD (hyperlipidemia) Current Visit: Yes Status: Chronic Assessment and Plan: Hx of chronic HLD. Continue home meds. (8) HTN (hypertension) Current Visit: Yes Status: Chronic Assessment and Plan: BP remains stable, continue home meds. (9) Generalized weakness Current Visit: Yes Status: Chronic Assessment and Plan: In the setting of healthcare acquired pneumonia Also, patient has history of metastatic melanoma and right breast cancer She was recently released from [facility] for rehabilitation PT/OT while inpatient--consult social media senior associate for discharge planning as the patient may benefit from additional rehabilitation Continue falls/safety precautions and up with assist only (10) GERD (gastroesophageal reflux disease) Current Visit: Yes Status: Chronic Assessment and Plan: Chronic, continue pts. Nexium. Pt. reports nausea overnight. Reglan added and pt. states helped w/nausea overnight. (11) Cancer of right female breast Current Visit: No Status: Chronic Assessment and Plan: Cancer of right breast--estrogen positive Being treated at the [facility] Continue txs as OP (12) DVT prophylaxis Current Visit: Yes Status: Acute Assessment and Plan: Continue heparin 5000 units SQ every 12 hours for DVT prophylaxis. Monitor patient for signs of bleeding. - Time Spent with Patient Total time spent is greater than 50% in coordination of care (as documented) at patient's floor/unit and/or counseling patient: less than 15 minutes Plan of Care Discussed with: patient Internal Medicine: Result - Labs CBC & Chem 7: 03/22/18 03:23 03/22/18 03:23 Labs: Short CBC 03/22/18 Range/Units 03:23 WBC 7.6 (4.3-11.1) K/mcL Hgb 12.3 D (11.5-15.4) g/dL Hct 36.2 (35.3-44.9) % Plt Count 150 (140-400) K/mcL Neutrophils # 5.8 (1.6-8.9) K/mcL BMP 03/22/18 03:23 Sodium 135 L Potassium 4.5 D Chloride 104 Carbon Dioxide 22 L BUN 19 Creatinine 0.68 Glucose 129 H Calcium 8.0 L Consult Discharge Plan - Plan Referrals: Rojas Campoverde MD [Primary Care Provider] - 04/04/18 10:00 am (2) UTI (urinary tract infection) Qualifiers: Urinary tract infection type: acute cystitis Hematuria presence: without hematuria Qualified Code(s): N30.00 - Acute cystitis without hematuria (6) Diabetes Qualifiers: Diabetes mellitus type: type 2 Diabetes mellitus longwall headgate operator insulin use: with longwall headgate operator use Diabetes mellitus complication status: with unspecified complications Qualified Code(s): E11.8 - Type 2 diabetes mellitus with unspecified complications; Z79.4 - terminal gauger supervisor (current) use of insulin (7) HLD (hyperlipidemia) Qualifiers: Hyperlipidemia type: pure hypercholesterolemia Qualified Code(s): E78.00 - Pure hypercholesterolemia, unspecified; E78.0 - Pure hypercholesterolemia (8) HTN (hypertension) Qualifiers: Hypertension type: essential hypertension Qualified Code(s): I10 - Essential (primary) hypertension (10) GERD (gastroesophageal reflux disease) Qualifiers: Esophagitis presence: without esophagitis Qualified Code(s): K21.9 - Gastro- esophageal reflux disease without esophagitis (11) Cancer of right female breast Qualifiers: Breast location: unspecified site of breast Estrogen receptor status: unspecified Qualified Code(s): C50.911 - Malignant neoplasm of unspecified site of right female breast
[2018-03-22 15:41] LABS: Bilirubin,Urine Negative (Negative); Blood,Urine Negative (Negative); Clarity,Urine Clear (Clear); Color,Urine Dark Yellow (Yellow); Glucose,Urine (UA) Normal (Normal); Ketones,Urine 15 mg/dL (Negative); Leukocyte Esterase,Urine Negative (Negative); Nitrite,Urine Negative (Negative); PH,Urine 5.5 pH Units (5.0-8.0); Protein,Urine 100 mg/dL (Neg-Trace); Specific Gravity,Urine > 1.030 (1.010-1.025); Urobilinogen,Urine Normal (Normal)
[2018-03-22 15:44] LABS: Bacteria,Urine None Seen per hpf (None-Few); Hyaline Casts,Urine None Seen per lpf (None-Few); Squamous Epithelial Cell,Urine Many per lpf (None-Few)
[2018-03-22] MEDS: Insulin DETEMIR 100 UNIT/ML X5UNITS SQ SCH (21:43)
[2018-03-22] MEDS: Ondansetron 4 MG/2 ML VIAL IVP PRN (23:38)
[2018-03-23] MEDS: Metoclopramide 10 MG/2 ML VIAL IVP PRN (02:04)
[2018-03-23] MEDS: *HR* Heparin 5,000 UNIT/ML VIAL SQ SCH ×2 (05:27→18:51)
[2018-03-23] MEDS: 0.9 % Sodium Chloride 1,000 ML IVC SCH ×2 (05:40→15:56)
[2018-03-23] MEDS: Piperacillin/Tazobactam 3.375 GM in 0.9 % Sodium Chloride Mini Bag 100 ML IVPB SCH ×3 (05:47→23:34)
[2018-03-23 06:11] LABS: Basophils % 0.5 %; Eosinophils # 0.1 K/mcL (0.0-0.6); Eosinophils % 0.7 %; Immature Granulocytes % 0.5 % (0-4); Lymphocytes # 0.6 K/mcL (0.6-4.6); Lymphocytes % 7.4 %; Mean Corpuscular HGB Conc 33.3 g/dL (31.6-35.5); Mean Corpuscular Hemoglobin 31.5 pg (28.0-33.3); Mean Corpuscular Volume 94.5 fL (83.0-100.0); Monocytes # 0.5 K/mcL (0.0-1.3); Monocytes % 5.5 %; Neutrophils # 7.2 K/mcL (1.6-8.9); Platelet Count 182 K/mcL (140-400); Red Blood Count 3.81 M/mcL (3.82-4.97); Red Cell Distribution Width 14.8 % (11.5-14.5); Segmented Neutrophils % 85.4 %
[2018-03-23 06:36] LABS: Alanine Aminotransferase < 3 Units/L (7-52); Albumin 2.6 g/dL (3.5-5.7); Albumin/Globulin Ratio 1.2 (1.1-2.2); Alkaline Phosphatase 50 Units/L (34-104); Aspartate Amino Transferase 8 Units/L (13-39); BUN/Creatinine Ratio 27 (6-26); Bilirubin,Total 0.8 mg/dL (0.3-1.0); Blood Urea Nitrogen 17 mg/dL (8-23); Calcium 7.9 mg/dL (8.6-10.3); Carbon Dioxide 23 mEq/L (23-29); Chloride 104 mEq/L (98-107); Globulin 2.2 g/dL (2.4-3.5); Glucose 170 mg/dL (70-105); Osmolality,Calculated 288 (280-300); Potassium 3.9 mEq/L (3.5-5.1); Sodium 136 mEq/L (136-145); Total Protein 4.8 g/dL (6.4-8.9); eGFR For Non-African Americans > 60 (> 60)
[2018-03-23] MEDS: Insulin LISPRO 300 UNITS/3 ML VIAL SQ SCH ×3 (10:21→18:47)
[2018-03-23] MEDS: Aspirin Enteric Coated 81 MG Tablet PO SCH (10:23)
[2018-03-23] MEDS: Anastrozole 1 MG TABLET PO SCH (10:23)
[2018-03-23] MEDS: Ascorbic Acid 500 MG TABLET PO SCH (10:24)
[2018-03-23] MEDS: Cholecalciferol (D-3) 1,000 UNIT TABLET PO SCH (10:24)
[2018-03-23] MEDS: Nystatin SUSP 5 ML UD.LIQ PO SCH ×4 (10:24→20:35)
[2018-03-23] MEDS: (Biotin [Biotin] 1 MG) PO SCH (10:25)
[2018-03-23] MEDS: Levofloxacin 750 MG/150 ML 750 MG/150 ML BAG IVPB SCH (10:25)
--- NOTE | 2018-03-23 15:32 | Internal Med Progress Note ---
Hospitalist Progress Note - Encounter Date of Encounter: 03/23/18 Time of Encounter: 12:00 - Subjective Interval History: Patient seen and examined at bedside today w/continued report of weakness, SOB, nausea, and loss of appetite. Reiterated need for PO supplementation/oral intake in order to improve strength. Informed pt. of NG tube placement if she is unable/unwilling to increase oral intake. Pt. states that she is eating and drinking more to avoid NG tube. Discussed plan of care including increasing PO intake, continuation of IVPB antibiotics, placement in ECF for rehabilitation/ strengthening post-discharge (pt. states that she is experiencing bilateral LE weakness, most likely from malnutrition), falls/safety precautions and up with assist only. Pt. verbalizes understanding and denies any questions at this time. - Exam Vitals: Temp Pulse Resp BP Pulse Ox 97.7 F 90 16 118/72 96 03/23/18 07:42 03/23/18 12:22 03/23/18 12:22 03/23/18 12:22 03/23/18 12:22 Exam: PHYSICAL EXAMINATION: GENERAL: The patient is an ill appearing female with continued report of nausea , reduced intake, weakness and SOB. She is alert and oriented x3. Pt. instructed to wear O2 consistently while inpt. HEENT: Head is normocephalic and atraumatic. Extraocular muscles are intact. Pupils are equal, round, and reactive to light and accommodation. Nares appeared normal. Mouth is well hydrated and without lesions. Mucous membranes are moist. NECK: Supple. No carotid bruits. No lymphadenopathy or thyromegaly. LUNGS: Clear on auscultation. HEART: Regular rate and rhythm. No JVD noted ABDOMEN: Soft, nontender, and nondistended. Positive bowel sounds. No hepatosplenomegaly was noted. EXTREMITIES: Without any cyanosis, clubbing, rash, lesions. NEUROLOGIC: Cranial nerves II through XII are grossly intact. PSYCHIATRIC: Normal affect and mood. SKIN: Dry and intact. - Assessment and Plan (1) Healthcare-associated pneumonia Current Visit: Yes Status: Acute Assessment and Plan: Continued weakness, fatigue, cough and shortness of breath Immunocompromised with metastatic melanoma and right breast cancer Continue treatment with broad-spectrum antibiotics including vancomycin, Levaquin and Zosyn Will de-escalate antibiotics according to patient's response and blood culture results WBC 8.4 today Continue to closely monitor Check CBC, BMP daily Ambulate 3 times a day, up in chair 3 times a day Incentive spirometer Oxygen supplementation PRN Falls/safety precautions and up with assist only (2) UTI (urinary tract infection) Current Visit: Yes Status: Acute Assessment and Plan: Patient is immunocompromised secondary to right breast cancer and metastatic melanoma High-risk for infections, continue to treat with Levaquin which is also being given for her HCAP (3) Dehydration Current Visit: Yes Status: Acute Assessment and Plan: Continue IV fluids and oral intake. Will continue to monitor pt. and f/u labs. (4) Lymph node enlargement Current Visit: Yes Status: Acute Assessment and Plan: She is currently being treated with immunotherapy at the [facility].-Recent scans at [facility] negative for abdominal organ, or lung metastasis. Monitor. (5) Hypocalcemia Current Visit: Yes Status: Acute Assessment and Plan: Acute hypocalcemia w/improved calcium of 7.9 today. Continue calcium carbonate PO TID which may help w/nausea. Monitor f/u labs. (6) Diabetes Current Visit: Yes Status: Chronic Assessment and Plan: Chronic, fingerstick blood glucose stable Continue basal insulin at night Continue low-dose sliding scale Monitor glucose ACHS (7) HLD (hyperlipidemia) Current Visit: Yes Status: Chronic Assessment and Plan: Hx of chronic HLD. Continue home meds. (8) HTN (hypertension) Current Visit: Yes Status: Chronic Assessment and Plan: BP remains stable, continue home meds. (9) Generalized weakness Current Visit: Yes Status: Chronic Assessment and Plan: In the setting of healthcare acquired pneumonia Also, patient has history of metastatic melanoma and right breast cancer She was recently released from [place] for rehabilitation PT/OT while inpatient-consult oncology social worker for discharge planning as the patient may benefit from additional rehabilitation at [facility]. Discussed plan w/pt. Continue falls/safety precautions and up with assist only (10) GERD (gastroesophageal reflux disease) Current Visit: Yes Status: Chronic Assessment and Plan: Chronic, continue IVP Zofran and Reglan which seems to be improving patient's nausea. Pt. reports vomiting overnight. Nurse reports more mucous than emesis. Continue to monitor. (11) Cancer of right female breast Current Visit: No Status: Chronic Assessment and Plan: Cancer of right breast--estrogen positive Being treated at the [facility] Continue txs as OP (12) DVT prophylaxis Current Visit: Yes Status: Acute Assessment and Plan: Continue heparin 5000 units SQ every 12 hours for DVT prophylaxis. Monitor patient for signs of bleeding. - Summary of Assessment and Plan Summary of Assessment and Plan: Continue to encourage increased by mouth intake of food and fluids. Continue IV fluids for hydration. Continue antibiotics for resolution of pneumonia. Social work intervention for placement to ECF for rehabilitation needs post- discharge. Continue to monitor patient and follow-up labs. - Time Spent with Patient Total time spent is greater than 50% in coordination of care (as documented) at patient's floor/unit and/or counseling patient: less than 15 minutes Plan of Care Discussed with: patient Internal Medicine: Result - Labs CBC & Chem 7: 03/23/18 05:58 03/23/18 05:58 Labs: Short CBC 03/23/18 Range/Units 05:58 WBC 8.4 (4.3-11.1) K/mcL Hgb 12.0 (11.5-15.4) g/dL Hct 36.0 (35.3-44.9) % Plt Count 182 (140-400) K/mcL Neutrophils # 7.2 (1.6-8.9) K/mcL BMP 03/23/18 05:58 Sodium 136 Potassium 3.9 Chloride 104 Carbon Dioxide 23 BUN 17 Creatinine 0.63 Glucose 170 H Calcium 7.9 L Liver Function 03/23/18 Range/Units 05:58 Total Bilirubin 0.8 (0.3-1.0) mg/dL AST 8 L (13-39) Units/L ALT < 3 L (7-52) Units/L Alkaline Phosphatase 50 (34-104) Units/L Albumin 2.6 L (3.5-5.7) g/dL Urine 03/22/18 Range/Units 15:12 Urine Color Dark Yellow (Yellow) Urine Clarity Clear (Clear) Urine pH 5.5 (5.0-8.0) pH Units Ur Specific Holiday > 1.030 H (1.010-1.025) Urine Protein 100 H (Neg-Trace) mg/dL Urine Glucose (UA) Normal (Normal) mg/dL - Impressions Impressions Chest X-Ray 03/22/18 10:38 IMPRESSION: Worsening bilateral lower lobe opacities, right greater than left. New right-sided pleural effusion. Small left effusion. These could be related to infiltrates. Follow up to resolution is suggested. 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: with shelter use Diabetes mellitus complication status: with unspecified complications Qualified Code(s): E11.8 - Type 2 diabetes mellitus with unspecified complications; Z79.4 - shelter (current) use of insulin (7) HLD (hyperlipidemia) Qualifiers: Hyperlipidemia type: pure hypercholesterolemia Qualified Code(s): E78.00 - Pure hypercholesterolemia, unspecified; E78.0 - Pure hypercholesterolemia (8) HTN (hypertension) Qualifiers: Hypertension type: essential hypertension Qualified Code(s): I10 - Essential (primary) hypertension (10) GERD (gastroesophageal reflux disease) Qualifiers: Esophagitis presence: without esophagitis Qualified Code(s): K21.9 - Gastro- esophageal reflux disease without esophagitis (11) Cancer of right female breast Qualifiers: Breast location: unspecified site of breast Estrogen receptor status: unspecified Qualified Code(s): C50.911 - Malignant neoplasm of unspecified site of right female breast
[2018-03-23] MEDS: Insulin DETEMIR 100 UNIT/ML X5UNITS SQ SCH (20:34)
[2018-03-24] MEDS: Piperacillin/Tazobactam 3.375 GM in 0.9 % Sodium Chloride Mini Bag 100 ML IVPB SCH ×3 (05:44→23:54)
[2018-03-24] MEDS: *HR* Heparin 5,000 UNIT/ML VIAL SQ SCH ×2 (05:46→18:22)
[2018-03-24 08:58] LABS: Basophils % 0.4 %; Eosinophils # 0.1 K/mcL (0.0-0.6); Eosinophils % 0.8 %; Immature Granulocytes % 0.6 % (0-4); Lymphocytes # 0.9 K/mcL (0.6-4.6); Lymphocytes % 11.6 %; Mean Corpuscular HGB Conc 33.3 g/dL (31.6-35.5); Mean Corpuscular Hemoglobin 31.6 pg (28.0-33.3); Mean Corpuscular Volume 94.9 fL (83.0-100.0); Mean Platelet Volume 9.8 fL (9.4-12.4); Monocytes # 0.5 K/mcL (0.0-1.3); Neutrophils # 6.3 K/mcL (1.6-8.9); Platelet Count 183 K/mcL (140-400); Red Blood Count 4.11 M/mcL (3.82-4.97); Segmented Neutrophils % 80.6 %
[2018-03-24 09:27] LABS: Alanine Aminotransferase 4 Units/L (7-52); Albumin 2.4 g/dL (3.5-5.7); Albumin/Globulin Ratio 1.1 (1.1-2.2); Alkaline Phosphatase 48 Units/L (34-104); Aspartate Amino Transferase 7 Units/L (13-39); BUN/Creatinine Ratio 25 (6-26); Bilirubin,Total 0.7 mg/dL (0.3-1.0); Blood Urea Nitrogen 14 mg/dL (8-23); Carbon Dioxide 25 mEq/L (23-29); Chloride 107 mEq/L (98-107); Globulin 2.2 g/dL (2.4-3.5); Glucose 123 mg/dL (70-105); Osmolality,Calculated 284 (280-300); Sodium 136 mEq/L (136-145); Total Protein 4.6 g/dL (6.4-8.9); eGFR For Non-African Americans > 60 (> 60)
[2018-03-24] MEDS: Levofloxacin 750 MG/150 ML 750 MG/150 ML BAG IVPB SCH (09:56)
[2018-03-24] MEDS: Ascorbic Acid 500 MG TABLET PO SCH (09:57)
[2018-03-24] MEDS: Cholecalciferol (D-3) 1,000 UNIT TABLET PO SCH (09:57)
[2018-03-24] MEDS: Nystatin SUSP 5 ML UD.LIQ PO SCH ×4 (09:58→20:17)
[2018-03-24] MEDS: Anastrozole 1 MG TABLET PO SCH (09:58)
[2018-03-24] MEDS: Aspirin Enteric Coated 81 MG Tablet PO SCH (09:58)
[2018-03-24] MEDS: 0.9 % Sodium Chloride 1,000 ML IVC SCH ×2 (09:58→10:50)
[2018-03-24] MEDS: Insulin LISPRO 300 UNITS/3 ML VIAL SQ SCH ×3 (09:59→18:21)
[2018-03-24] MEDS: (Biotin [Biotin] 1 MG) PO SCH (09:59)
--- NOTE | 2018-03-24 10:54 | Infectious Disease Progress No ---
Date of Encounter: 03/24/18 Time of Encounter: 10:52 - Assessment and Plan (1) Healthcare-associated pneumonia Current Visit: Yes Status: Acute Location: Left lung. Causative organism: Unclear. Recently hospitalized at [facility]. CXR showed retrocardia opacity consistent with airspace disease or pneumonia and small left pleural effusion. No SIRS criteria, but the patient's depressed immune system may hinder development of SIRS criteria. Repeat CXR showed worsening bilateral lower lobe opacities, right greater than left with new right sided pleural effusion and small left pleural effusion. Likely atelectasis given the clinical picture as the patient is improved overall. Unable to get sputum since the patient is not having a cough. Check S. pneumo and Legionella UAT. --> negative. Discontiune Levaquin. Continue Zosyn 3.375 grams IV Q8H. Day 6 Continue Vancomycin IV. Pharmacy to dose. Goal trough ~15. Day 6 Duration of treatment depends on the clinical picture, but likely a total of 10 days. Can switch to PO antibiotics when ready for discharge. Monitor renal function and for drug toxicity and dose-adjust antibiotics. (2) Dehydration Current Visit: No Status: Resolved Likely secondary to poor PO intake. Appears improved. Management per the primary team. (3) Malignant melanoma of right foot Current Visit: No Status: Chronic Diagnosed in 2015 status post excision x 2, currently on immunotherapy per [facility]. Stable per patient's report. States last immunotherapy in early February. (4) Generalized weakness Current Visit: Yes Status: Acute Likely multifactorial: deconditioning, dehydration, immunotherapy. PT/OT to evaluate and treat. (5) Thrush Current Visit: No Status: Acute Appears resolved. Continue Nystatin PO. (6) Lymph node enlargement Current Visit: Yes Status: Chronic Secondary to malignant melanoma, but previous biopsies have been negative for mets. (7) Vasovagal syncope Current Visit: No Status: Resolved (8) Diabetes Current Visit: Yes Status: Chronic Recommend aggressive glucose monitoring and control. Management per the primary team. Qualifiers: Diabetes mellitus type: type 2 Diabetes mellitus intermediate insulin use: with intermediate use Diabetes mellitus complication status: with unspecified complications Qualified Code(s): E11.8 - Type 2 diabetes mellitus with unspecified complications; Z79.4 - terminal gauger (current) use of insulin (9) HLD (hyperlipidemia) Current Visit: Yes Status: Chronic Qualifiers: Hyperlipidemia type: pure hypercholesterolemia Qualified Code(s): E78.00 - Pure hypercholesterolemia, unspecified; E78.0 - Pure hypercholesterolemia (10) HTN (hypertension) Current Visit: Yes Status: Chronic Qualifiers: Hypertension type: essential hypertension Qualified Code(s): I10 - Essential (primary) hypertension (11) GERD (gastroesophageal reflux disease) Current Visit: Yes Status: Chronic Qualifiers: Esophagitis presence: without esophagitis Qualified Code(s): K21.9 - Gastro -esophageal reflux disease without esophagitis (12) Anorexia Current Visit: Yes Status: Acute The patient reports very little PO intake for the past week. States nothing tastes good to her. Per nursing, patient non-compliant with nutritional supplements. Improved per patient report. - Subjective Interval history: Patient seen and examined. No acute events noted overnight. Patient states she feels a little better today. Denies nausea or vomiting and states she was able to drink Ensure for breakfast. She reports dyspnea on exertion, but reports resolution of her cough. Denies abdominal pain or urinary complaints. Reports BM this morning. Denies oral thrush or new skin lesions. Infect Dis PN-Objective Data - Labs CBC & Chem 7: 03/24/18 08:31 03/24/18 08:31 Labs: Laboratory Results - last 24 hr 03/23/18 03/23/18 03/23/18 07:37 12:17 16:00 WBC RBC Hgb Hct MCV MCH MCHC RDW Plt Count MPV Immature Gran % Seg Neutrophils % Lymphocytes % Monocytes % Eosinophils % Basophils % Neutrophils # Lymphocytes # Monocytes # Eosinophils # Basophils # Sodium Potassium Chloride Carbon Dioxide BUN Creatinine Est GFR ( Amer) Est GFR (Non-Af Amer) BUN/Creatinine Ratio Glucose POC Glucose 133 H 201 H 146 H Calculated Osmolality Calcium Total Bilirubin AST ALT Alkaline Phosphatase Serum Total Protein Albumin Globulin Albumin/Globulin Ratio 03/23/18 03/24/18 03/24/18 20:39 08:31 08:31 WBC 7.8 RBC 4.11 Hgb 13.0 Hct 39.0 MCV 94.9 MCH 31.6 MCHC 33.3 RDW 15.0 H Plt Count 183 MPV 9.8 Immature Gran % 0.6 Seg Neutrophils % 80.6 Lymphocytes % 11.6 Monocytes % 6.0 Eosinophils % 0.8 Basophils % 0.4 Neutrophils # 6.3 Lymphocytes # 0.9 Monocytes # 0.5 Eosinophils # 0.1 Basophils # 0.0 Sodium 136 Potassium 4.0 Chloride 107 Carbon Dioxide 25 BUN 14 Creatinine 0.55 L Est GFR ( Amer) > 60 Est GFR (Non-Af Amer) > 60 BUN/Creatinine Ratio 25 Glucose 123 H POC Glucose 146 H Calculated Osmolality 284 Calcium 8.0 L Total Bilirubin 0.7 AST 7 L ALT 4 L Alkaline Phosphatase 48 Serum Total Protein 4.6 L Albumin 2.4 L Globulin 2.2 L Albumin/Globulin Ratio 1.1 Cultures: Cultures 03/21/18 11:20 Legionella Antigen - Final Urine,Clean Catch Streptococcus pneumoniae Antigen (M - Final Serology 03/22/18 Range/Units 15:12 Urine Color Dark Yellow (Yellow) Urine Clarity Clear (Clear) Urine pH 5.5 (5.0-8.0) pH Units Ur Specific [place] > 1.030 H (1.010-1.025) Urine Protein 100 H (Neg-Trace) mg/dL Urine Glucose (UA) Normal (Normal) mg/dL Urine Ketones 15 H (Negative) mg/dL Urine Blood Negative (Negative) Urine Nitrite Negative (Negative) Urine Bilirubin Negative (Negative) Urine Urobilinogen Normal (Normal) mg/dL Ur Leukocyte Esterase Negative (Negative) Urine Microscopic RBC 5-15 H (0-3) per hpf Urine Microscopic WBC 5-15 H (0-3) per hpf Ur Squamous Epith Cells Many H (None-Few) per lpf Urine Bacteria None Seen (None-Few) per hpf Hyaline Casts None Seen (None-Few) per lpf Ur Culture Indicated? NO (NO) Exam - Constitutional Vitals: Temp Pulse Resp BP Pulse Ox 98.0 F 81 14 126/79 99 03/24/18 07:20 03/24/18 07:20 03/24/18 07:20 03/24/18 07:20 03/24/18 07:20 General appearance: average body habitus, cooperative, no acute distress - Head Head exam: Present: atraumatic, normal inspection, normocephalic - Eye Eye exam: Present: EOMI, normal appearance, PERRL Pupils: Present: normal accommodation - ENT ENT exam: Present: mucous membranes moist - Neck Neck exam: Present: normal inspection - Respiratory Respiratory exam: Present: CTAB. Absent: rales, respiratory distress, rhonchi, wheezes - Cardiovascular Cardiovascular exam: Present: RRR, +S1, +S2 - GI/Abdominal GI/Abdominal exam: Present: normal bowel sounds, soft. Absent: distended, tenderness - Extremities Exam Extremities exam: Present: normal inspection. Absent: joint swelling, pedal edema, tenderness - Neurological Exam Neurological exam: Present: alert, oriented X3, no focal deficits - Psychiatric Psychiatric exam: Present: normal affect, normal mood - Skin Skin exam: Present: dry, intact, normal color, warm Consult Discharge Plan - Plan Referrals: Rojas Campoverde MD [Primary Care Provider] - 04/04/18 10:00 am - Attending Attestation I examined this patient and my medical decision-making was reviewed with the Resident Physician. I agree with the documented findings, disposition and treatment plan as described except to the extent set forth below.
--- NOTE | 2018-03-24 15:31 | Discharge Summary ---
- NOTES TO OUTPATIENT PROVIDER Notes to Outpatient Provider: Patient presents w/weakness of bilateral LEs as well as failure to thrive r/t poor oral intake of food and fluids. Pt. will require placement for PT/OT strengthening and nutritional monitoring to increase strength. Orders not resulted at time of discharge: Pending orders 03/25/18 05:00 Vancomycin,Trough Timed Date of Encounter: 03/24/18 Time of Encounter: 10:30 - Discharge Diagnosis (1) Healthcare-associated pneumonia Priority: Primary Status: Acute Assessment and Plan: WBC of 7.8 today Repeat CXR for PNA resolution Pt. on IV abx for 6 days (levaquin, Zosyn, and vancomycin) Immunocompromised with metastatic melanoma and right breast cancer Ambulate 3 times a day, up in chair 3 times a day Continue incentive spirometer O2 PRN (2) UTI (urinary tract infection) Priority: Primary Status: Acute Assessment and Plan: Resolved Pt. received IVPB levaquin, Zosyn, and vancomycin Monitor urine output and U/A in ECF Encourage increased PO fluids Qualifiers: Urinary tract infection type: acute cystitis Hematuria presence: without hematuria Qualified Code(s): N30.00 - Acute cystitis without hematuria (3) Generalized weakness Status: Acute Assessment and Plan: In the setting of healthcare acquired pneumonia Hx of metastatic melanoma and right breast cancer Recently released from [facility] for rehabilitation Continue PT/OT while in ECF Increase oral fluid and food intake w/nutritional monitoring (4) Dehydration Priority: Primary Status: Acute Assessment and Plan: Continue PO fluids and oral intake (5) Hypocalcemia Priority: Primary Status: Acute Assessment and Plan: Slowly improving at 8.0 today Continue PO Tums to increase calcium and help w/nausea (6) Lymph node enlargement Priority: Secondary Status: Chronic Assessment and Plan: Currently being treated with immunotherapy at the [facility] for abdominal organ, or lung metastasis. 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 Continue home meds. Qualifiers: Hyperlipidemia type: pure hypercholesterolemia Qualified Code(s): E78.00 - Pure hypercholesterolemia, unspecified; E78.0 - Pure hypercholesterolemia (9) HTN (hypertension) Priority: Secondary Status: Chronic Assessment and Plan: BP remains stable, continue home meds. Qualifiers: Hypertension type: essential hypertension Qualified Code(s): I10 - Essential (primary) hypertension (10) GERD (gastroesophageal reflux disease) Priority: Secondary Status: Chronic Assessment and Plan: Chronic, continue IVP Zofran and Reglan which seems to be improving patient's nausea. Continue anti-nausea medication during placement to promote increased oral intake of food and fluid. Qualifiers: Esophagitis presence: without esophagitis Qualified Code(s): K21.9 - Gastro -esophageal reflux disease without esophagitis (11) Cancer of right female breast Priority: Secondary Status: Chronic Assessment and Plan: Cancer of right breast--estrogen positive Being treated at the [facility] Continue txs as OP Qualifiers: Breast location: unspecified site of breast Estrogen receptor status: unspecified Qualified Code(s): C50.911 - Malignant neoplasm of unspecified site of right female breast Hospital course: Ms. Valerio is a 72 year old female Discharge discussed with: patient - Time Spent with Patient Total time spent providing and/or coordinating discharge services: Less than 30 minutes - Discharge Medications Home Medications: Ascorbic Acid [Vitamin C] 500 mg PO DAILY #0 05/19/15 [History] Biotin 1 mg PO DAILY 05/19/15 [History] Cholecalciferol (D-3) [Vitamin D] 5,000 unit PO DAILY #0 05/19/15 [History] Pravastatin Sodium [Pravachol] 20 mg PO HS 05/19/15 [History] Vitamin E Acid Succinate [Vitamin E] 800 units PO DAILY #0 05/19/15 [History] Aspirin Enteric Coated [Aspirin EC] 81 mg PO DAILY 01/10/16 [History] Anastrozole [Arimidex] 1 mg PO DAILY 05/08/17 [History] Carvedilol 3.125 mg PO BID 05/08/17 [History] Esomeprazole Magnesium [Nexium] 40 mg PO DAILY 05/08/17 [History] Lisinopril 2.5 mg PO DAILY 05/08/17 [History] Nitroglycerin [Nitrostat] 0.4 mg SL Q5M PRN 05/08/17 [History] Polyethylene Glycol 3350 [MiraLAX] 17 gm PO DAILY PRN 05/08/17 [History] Potassium Chloride 10 meq PO DAILY #30 tab.er.prt 03/12/18 [Rx] Ferrous Gluconate 324 mg PO DAILY 03/19/18 [History] Insulin Glargine [Lantus] 20 unit SQ HS PRN 03/19/18 [History] Levofloxacin [Levaquin] 750 mg PO QDPC #4 tablet 03/19/18 [Rx] Nystatin [Nystatin Suspension] 100,000 units PO QID 03/19/18 [History] Ondansetron HCl [Zofran] 4 mg PO Q8HR PRN #21 tab 03/19/18 [Rx] Allergies/Adverse Reactions: 3 Allergy/AdvReac Type Severity Reaction Status Date / Time atorvastatin [From Lipitor] Allergy Muscle Pain Verified 01/10/16 18:31 codeine Allergy See Verified 03/17/15 21:29 Comments Date of admission: 03/19/18 19:18 Primary care physician: Rojas Campoverde MD Consults: 03/20/18 15:15 Consult to Infectious Diseases [CONS] Routine Consulting Provider: Infectious Disease Summer Reason for Consult: Patient presents w/HCAP r/t recent hospitalizations. Pt. is currently immunocompromised d/t current cancer txs from melanoma. Currently being treated with IVPB vancomycin, Zosyn, and Levaquin. Call Completed: Yes Discharging clinician: Darrius Luna Anticipated date of discharge: 03/24/18 - Constitutional Vitals: Temp Pulse Resp BP Pulse Ox 97 F L 84 14 115/76 98 03/24/18 11:22 03/24/18 11:22 03/24/18 07:20 03/24/18 11:22 03/24/18 11:22 General appearance: Present: cooperative, A&O X 3, pleasant, no acute distress, answers questions appropriately - Head Head exam: Present: atraumatic, normocephalic - Eye Eye exam: Present: PERRL, conjuntiva pink, sclera anicteric Pupils: Present: PERRL - ENT ENT exam: Present: normal exam - Neck Neck exam general surgery: Present: supple, trachea midline. Absent: lymphadenopathy - Respiratory Respiratory exam: Present: CTAB. Absent: accessory muscle use, rales, rhonchi, wheezes - Cardiovascular Cardiovascular exam: Present: RRR, +S1, +S2. Absent: diastolic murmur, gallop, rubs, systolic murmur - GI/Abdominal GI/Abdominal exam: Present: normal bowel sounds, soft, no peritoneal signs. Absent: distended, tenderness - Rectal Rectal exam: Present: deferred - Additional comments: exam deferred. - Extremities Exam Extremities exam: Present: warm, radial pulses palpable and symmetrical. Absent : calf tenderness, cyanotic, pedal edema - Back Exam Back exam: Present: normal inspection - Neurological Exam Neurological exam: Present: alert, CN II-XII intact, oriented X3, no focal deficits. Absent: pronater drift, facial droop, speech deficit - Psychiatric Psychiatric exam: Present: anxious - Skin Skin exam: Present: dry, intact - Patient Status Disposition: Transfer Inpatient Rehab Fac Condition: Good Functional capacity at discharge: uses cane/walker Overall status at discharge: patient is progressing back to baseline - Discharge Instructions Follow Up With: Rojas Campoverde MD [Primary Care Provider] - 04/04/18 10:00 am - Diet and Activity Activity: ambulate only with your walker, increase activity as tolerated, wear oxygen at night Diet: diabetic diet
[2018-03-24] MEDS ORDERED: Furosemide 20 MG/2 ML VIAL IVP ONE (16:55)
--- NOTE | 2018-03-24 17:26 | Internal Med Progress Note ---
Hospitalist Progress Note - Encounter Date of Encounter: 03/24/18 Time of Encounter: 10:30 - Subjective Interval History: Patient seen and examined at bedside today and states that she is able to eat and drink more. Reiterated need for PO supplementation/oral intake in order to improve strength. Discussed plan of care including increasing PO intake, continuation of IVPB antibiotics, placement in ECF for rehabilitation/ strengthening post-discharge (pt. states that she is experiencing bilateral LE weakness, most likely from malnutrition), falls/safety precautions and up with assist only. Pt. verbalizes understanding and denies any questions at this time. - Exam Vitals: Temp Pulse Resp BP Pulse Ox 97.0 F L 90 15 121/75 95 03/24/18 15:27 03/24/18 15:27 03/24/18 15:27 03/24/18 15:27 03/24/18 15:27 Exam: PHYSICAL EXAMINATION: GENERAL: The patient is an ill appearing female with continued report weakness but states she is eating/drinking more to avoid NG tube. She is alert and oriented x3. Pt. instructed to wear O2 consistently while inpt. HEENT: Head is normocephalic and atraumatic. Extraocular muscles are intact. Pupils are equal, round, and reactive to light and accommodation. Nares appeared normal. Mouth is well hydrated and without lesions. Mucous membranes are moist. NECK: Supple. No carotid bruits. No lymphadenopathy or thyromegaly. LUNGS: Clear on auscultation. HEART: Regular rate and rhythm. No JVD noted ABDOMEN: Soft, nontender, and nondistended. Positive bowel sounds. No hepatosplenomegaly was noted. EXTREMITIES: Without any cyanosis, clubbing, rash, lesions. NEUROLOGIC: Cranial nerves II through XII are grossly intact. PSYCHIATRIC: Normal affect and mood. SKIN: Dry and intact. - Assessment and Plan (1) Healthcare-associated pneumonia Current Visit: Yes Status: Acute Assessment and Plan: WBC of 7.8 today Repeat CXR for PNA resolution. CXR shows worsening bibasilar airspace the pacing bilateral pleural effusions over 2 days. Differential diagnosis includes bibasilar pneumonia versus pulmonary edema either from volume overload or congestive heart failure. DC IV fluids. 20 mg Lasix IVP. Echocardiogram. Pt. on IV abx for 6 days (levaquin, Zosyn, and vancomycin) Immunocompromised with metastatic melanoma and right breast cancer Ambulate 3 times a day, up in chair 3 times a day Continue incentive spirometer O2 PRN (2) UTI (urinary tract infection) Current Visit: Yes Status: Acute Assessment and Plan: Resolved Pt. received IVPB levaquin, Zosyn, and vancomycin Monitor urine output and U/A in ECF Encourage increased PO fluids (3) Generalized weakness Current Visit: Yes Status: Acute Assessment and Plan: Improving In the setting of healthcare acquired pneumonia Hx of metastatic melanoma and right breast cancer Recently released from [facility] for rehabilitation Continue PT/OT while in ECF Increase oral fluid and food intake w/nutritional monitoring (4) Dehydration Current Visit: Yes Status: Acute Assessment and Plan: Continue PO fluids and oral intake DC IV fluids to CXR showing bibasilar pneumonia versus pulmonary edema either from volume overload or CHF (5) Hypocalcemia Current Visit: Yes Status: Acute Assessment and Plan: Slowly improving at 8.0 today Continue PO Tums to increase calcium and help w/nausea (6) Lymph node enlargement Current Visit: Yes Status: Chronic Assessment and Plan: Currently being treated with immunotherapy at the [facility] negative for abdominal organ, or lung metastasis. Continue to f/u as OP (7) Diabetes Current Visit: Yes Status: Chronic Assessment and Plan: Chronic, continue to monitor w/fingersticks Continue home insulin dosing Sliding scale and hypoglycemic protocol (8) HLD (hyperlipidemia) Current Visit: Yes Status: Chronic Assessment and Plan: Hx of chronic HLD. Continue home meds. (9) HTN (hypertension) Current Visit: Yes Status: Chronic Assessment and Plan: BP remains stable, continue home meds. (10) GERD (gastroesophageal reflux disease) Current Visit: Yes Status: Chronic Assessment and Plan: Chronic, continue IVP Zofran and Reglan which seems to be improving patient's nausea. Continue anti-nausea medication during placement to promote increased oral intake of food and fluid. (11) Cancer of right female breast Current Visit: No Status: Chronic Assessment and Plan: Cancer of right breast--estrogen positive Being treated at the [facility] Continue txs as OP - Summary of Assessment and Plan Summary of Assessment and Plan: Continue to encourage increased by mouth intake of food and fluids. DC IV fluids. Continue antibiotics for resolution of pneumonia. CXR today shows worsening bibasilar airspace opacity and bibasilar pleural effusions over 2 days. Differential diagnosis includes bibasilar pneumonia versus pulmonary edema either from volume overload or CHF Social work intervention for placement to ECF for rehabilitation needs post-discharge. Continue to monitor patient and follow-up labs. - Time Spent with Patient Total time spent is greater than 50% in coordination of care (as documented) at patient's floor/unit and/or counseling patient: less than 15 minutes Plan of Care Discussed with: patient Internal Medicine: Result - Labs CBC & Chem 7: 03/24/18 08:31 03/24/18 08:31 Labs: Short CBC 03/24/18 Range/Units 08:31 WBC 7.8 (4.3-11.1) K/mcL Hgb 13.0 (11.5-15.4) g/dL Hct 39.0 (35.3-44.9) % Plt Count 183 (140-400) K/mcL Neutrophils # 6.3 (1.6-8.9) K/mcL BMP 03/24/18 08:31 Sodium 136 Potassium 4.0 Chloride 107 Carbon Dioxide 25 BUN 14 Creatinine 0.55 L Glucose 123 H Calcium 8.0 L Liver Function 03/24/18 Range/Units 08:31 Total Bilirubin 0.7 (0.3-1.0) mg/dL AST 7 L (13-39) Units/L ALT 4 L (7-52) Units/L Alkaline Phosphatase 48 (34-104) Units/L Albumin 2.4 L (3.5-5.7) g/dL - Impressions Impressions Chest X-Ray 03/24/18 15:40 IMPRESSION: Worsening bibasilar airspace opacity and bilateral pleural effusions over 2 days. Differential diagnosis includes bibasilar pneumonia versus pulmonary edema either from volume overload or congestive heart failure. 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 insulin use: with termite control service representative use Diabetes mellitus complication status: with unspecified complications Qualified Code(s): E11.8 - Type 2 diabetes mellitus with unspecified complications; Z79.4 - penitentiary (current) use of insulin (8) HLD (hyperlipidemia) Qualifiers: Hyperlipidemia type: pure hypercholesterolemia Qualified Code(s): E78.00 - Pure hypercholesterolemia, unspecified; E78.0 - Pure hypercholesterolemia (9) HTN (hypertension) Qualifiers: Hypertension type: essential hypertension Qualified Code(s): I10 - Essential (primary) hypertension (10) GERD (gastroesophageal reflux disease) Qualifiers: Esophagitis presence: without esophagitis Qualified Code(s): K21.9 - Gastro- esophageal reflux disease without esophagitis (11) Cancer of right female breast Qualifiers: Breast location: unspecified site of breast Estrogen receptor status: unspecified Qualified Code(s): C50.911 - Malignant neoplasm of unspecified site of right female breast
[2018-03-24] MEDS: Insulin DETEMIR 100 UNIT/ML X5UNITS SQ SCH (20:16)
[2018-03-24 20:26] LABS: Bilirubin,Urine Negative (Negative); Blood,Urine Negative (Negative); Clarity,Urine Clear (Clear); Color,Urine Yellow (Yellow); Glucose,Urine (UA) Normal (Normal); Ketones,Urine Negative (Negative); Leukocyte Esterase,Urine Negative (Negative); Nitrite,Urine Negative (Negative); Protein,Urine Negative (Neg-Trace); Specific Gravity,Urine 1.009 (1.010-1.025); Urobilinogen,Urine Normal (Normal)
[2018-03-24] MEDS: Ipratropium/Albuterol Neb 3 ML IH SCH (23:01)
[2018-03-25] MEDS: Ipratropium/Albuterol Neb 3 ML IH SCH ×4 (03:47→22:17)
[2018-03-25] MEDS: *HR* Heparin 5,000 UNIT/ML VIAL SQ SCH ×2 (06:14→16:55)
[2018-03-25] MEDS: Piperacillin/Tazobactam 3.375 GM in 0.9 % Sodium Chloride Mini Bag 100 ML IVPB SCH ×3 (06:40→22:28)
[2018-03-25 07:17] LABS: Basophils % 0.5 %; Eosinophils % 0.5 %; Hematocrit 43.5 % (35.3-44.9); Hemoglobin 14.5 g/dL (11.5-15.4); Immature Granulocytes % 0.5 % (0-4); Lymphocytes # 1.2 K/mcL (0.6-4.6); Lymphocytes % 14.7 %; Mean Corpuscular HGB Conc 33.3 g/dL (31.6-35.5); Mean Corpuscular Hemoglobin 32.1 pg (28.0-33.3); Mean Corpuscular Volume 96.2 fL (83.0-100.0); Mean Platelet Volume 9.8 fL (9.4-12.4); Monocytes # 0.6 K/mcL (0.0-1.3); Monocytes % 7.5 %; Platelet Count 166 K/mcL (140-400); Red Blood Count 4.52 M/mcL (3.82-4.97); Red Cell Distribution Width 14.9 % (11.5-14.5); Segmented Neutrophils % 76.3 %
[2018-03-25 08:08] LABS: Alanine Aminotransferase < 3 Units/L (7-52); Albumin 2.2 g/dL (3.5-5.7); Albumin/Globulin Ratio 0.9 (1.1-2.2); Alkaline Phosphatase 48 Units/L (34-104); Aspartate Amino Transferase 8 Units/L (13-39); BUN/Creatinine Ratio 25 (6-26); Bilirubin,Total 0.7 mg/dL (0.3-1.0); Blood Urea Nitrogen 13 mg/dL (8-23); Calcium 7.7 mg/dL (8.6-10.3); Carbon Dioxide 20 mEq/L (23-29); Chloride 109 mEq/L (98-107); Globulin 2.5 g/dL (2.4-3.5); Glucose 119 mg/dL (70-105); Osmolality,Calculated 283 (280-300); Potassium 3.6 mEq/L (3.5-5.1); Sodium 136 mEq/L (136-145); Total Protein 4.7 g/dL (6.4-8.9); Vancomycin,Trough 17 mcg/mL (5-10); eGFR For Non-African Americans > 60 (> 60)
[2018-03-25] MEDS: Insulin LISPRO 300 UNITS/3 ML VIAL SQ SCH ×3 (08:28→16:38)
[2018-03-25] MEDS: Nystatin SUSP 5 ML UD.LIQ PO SCH ×5 (08:43→20:26)
[2018-03-25] MEDS: Aspirin Enteric Coated 81 MG Tablet PO SCH (08:46)
[2018-03-25] MEDS: Ascorbic Acid 500 MG TABLET PO SCH (08:46)
[2018-03-25] MEDS: Cholecalciferol (D-3) 1,000 UNIT TABLET PO SCH (08:46)
[2018-03-25] MEDS: (Biotin [Biotin] 1 MG) PO SCH (08:48)
[2018-03-25] MEDS: Anastrozole 1 MG TABLET PO SCH (09:03)
--- NOTE | 2018-03-25 12:00 | Infectious Disease Progress No ---
Date of Encounter: 03/25/18 Time of Encounter: 11:58 - Assessment and Plan (1) Healthcare-associated pneumonia Current Visit: Yes Status: Acute Location: Left lung. Causative organism: Unclear. Recently hospitalized at [facility] and [facility]. CXR showed retrocardia opacity consistent with airspace disease or pneumonia and small left pleural effusion. No SIRS criteria, but the patient's depressed immune system may hinder development of SIRS criteria. Repeat CXR showed worsening bilateral lower lobe opacities, right greater than left with new right sided pleural effusion and small left pleural effusion. Likely atelectasis given the clinical picture as the patient is improved overall. Unable to get sputum since the patient is not having a cough. Check S. pneumo and Legionella UAT. --> negative. Discontiune Levaquin. Continue Zosyn 3.375 grams IV Q8H. Day 7 Continue Vancomycin IV. Pharmacy to dose. Goal trough ~15. Day 7 Duration of treatment depends on the clinical picture, but likely a total of 10 days. Can switch to PO antibiotics when ready for discharge, recommend doxycycline 100mg PO BID and Levaquin 750mg PO daily. Monitor renal function and for drug toxicity and dose-adjust antibiotics. (2) Dehydration Current Visit: No Status: Resolved Likely secondary to poor PO intake. Appears improved. Management per the primary team. (3) Malignant melanoma of right foot Current Visit: No Status: Chronic Diagnosed in 2015 status post excision x 2, currently on immunotherapy per [facility]. Stable per patient's report. States last immunotherapy in early February. (4) Generalized weakness Current Visit: Yes Status: Acute Likely multifactorial: deconditioning, dehydration, immunotherapy. PT/OT to evaluate and treat. (5) Thrush Current Visit: No Status: Acute Appears resolved. Continue Nystatin PO. (6) Lymph node enlargement Current Visit: Yes Status: Chronic Secondary to malignant melanoma, but previous biopsies have been negative for mets. (7) Vasovagal syncope Current Visit: No Status: Resolved (8) Diabetes Current Visit: Yes Status: Chronic Recommend aggressive glucose monitoring and control. Management per the primary team. Qualifiers: Diabetes mellitus type: type 2 Diabetes mellitus long term care pharmacist insulin use: with group home use Diabetes mellitus complication status: with unspecified complications Qualified Code(s): E11.8 - Type 2 diabetes mellitus with unspecified complications; Z79.4 - USP (current) use of insulin (9) HLD (hyperlipidemia) Current Visit: Yes Status: Chronic Qualifiers: Hyperlipidemia type: pure hypercholesterolemia Qualified Code(s): E78.00 - Pure hypercholesterolemia, unspecified; E78.0 - Pure hypercholesterolemia (10) HTN (hypertension) Current Visit: Yes Status: Chronic Qualifiers: Hypertension type: essential hypertension Qualified Code(s): I10 - Essential (primary) hypertension (11) GERD (gastroesophageal reflux disease) Current Visit: Yes Status: Chronic Qualifiers: Esophagitis presence: without esophagitis Qualified Code(s): K21.9 - Gastro -esophageal reflux disease without esophagitis (12) Anorexia Current Visit: Yes Status: Acute The patient reports very little PO intake for the past week. States nothing tastes good to her. Per nursing, patient non-compliant with nutritional supplements. Improved per patient report. - Subjective Interval history: Patient seen and examined. No acute events noted overnight. Patient states she feels better today. Denies nausea or vomiting and states she was able to drink Ensure for breakfast. Denies shortness of breath or cough this morning. Denies abdominal pain or urinary complaints. Reports diarrhea stools yesterday, three as documented per nursing. Denies oral thrush or new skin lesions. Infect Dis PN-Objective Data - Labs CBC & Chem 7: 03/25/18 07:08 03/25/18 06:30 Labs: Laboratory Results - last 24 hr 03/24/18 03/24/18 03/24/18 07:25 11:30 15:31 WBC RBC Hgb Hct MCV MCH MCHC RDW Plt Count MPV Immature Gran % Seg Neutrophils % Lymphocytes % Monocytes % Eosinophils % Basophils % Neutrophils # Lymphocytes # Monocytes # Eosinophils # Basophils # Sodium Potassium Chloride Carbon Dioxide BUN Creatinine Est GFR ( Amer) Est GFR (Non-Af Amer) BUN/Creatinine Ratio Glucose POC Glucose 111 H 126 H 118 H Calculated Osmolality Calcium Total Bilirubin AST ALT Alkaline Phosphatase Serum Total Protein Albumin Globulin Albumin/Globulin Ratio Urine Color Urine Clarity Urine pH Ur Specific [place] Urine Protein Urine Glucose (UA) Urine Ketones Urine Blood Urine Nitrite Urine Bilirubin Urine Urobilinogen Ur Leukocyte Esterase Ur Culture Indicated? Vancomycin Trough Specimen Rejected 03/24/18 03/24/18 03/25/18 20:15 20:51 06:30 WBC RBC Hgb Hct MCV MCH MCHC RDW Plt Count MPV Immature Gran % Seg Neutrophils % Lymphocytes % Monocytes % Eosinophils % Basophils % Neutrophils # Lymphocytes # Monocytes # Eosinophils # Basophils # Sodium 136 Potassium 3.6 Chloride 109 H Carbon Dioxide 20 L BUN 13 Creatinine 0.52 L Est GFR ( Amer) > 60 Est GFR (Non-Af Amer) > 60 BUN/Creatinine Ratio 25 Glucose 119 H POC Glucose 123 H Calculated Osmolality 283 Calcium 7.7 L Total Bilirubin 0.7 AST 8 L ALT < 3 L Alkaline Phosphatase 48 Serum Total Protein 4.7 L Albumin 2.2 L Globulin 2.5 Albumin/Globulin Ratio 0.9 L Urine Color Yellow Urine Clarity Clear Urine pH 6.0 Ur Specific [place] 1.009 L Urine Protein Negative Urine Glucose (UA) Normal Urine Ketones Negative Urine Blood Negative Urine Nitrite Negative Urine Bilirubin Negative Urine Urobilinogen Normal Ur Leukocyte Esterase Negative Ur Culture Indicated? NO Vancomycin Trough 17 H Specimen Rejected 03/25/18 03/25/18 06:30 07:08 WBC 7.9 RBC 4.52 Hgb 14.5 D Hct 43.5 MCV 96.2 MCH 32.1 MCHC 33.3 RDW 14.9 H Plt Count 166 MPV 9.8 Immature Gran % 0.5 Seg Neutrophils % 76.3 Lymphocytes % 14.7 Monocytes % 7.5 Eosinophils % 0.5 Basophils % 0.5 Neutrophils # 6.0 Lymphocytes # 1.2 Monocytes # 0.6 Eosinophils # 0.0 Basophils # 0.0 Sodium Potassium Chloride Carbon Dioxide BUN Creatinine Est GFR ( Amer) Est GFR (Non-Af Amer) BUN/Creatinine Ratio Glucose POC Glucose Calculated Osmolality Calcium Total Bilirubin AST ALT Alkaline Phosphatase Serum Total Protein Albumin Globulin Albumin/Globulin Ratio Urine Color Urine Clarity Urine pH Ur Specific [place] Urine Protein Urine Glucose (UA) Urine Ketones Urine Blood Urine Nitrite Urine Bilirubin Urine Urobilinogen Ur Leukocyte Esterase Ur Culture Indicated? Vancomycin Trough Specimen Rejected Clotted Cultures: Cultures 03/21/18 11:20 Legionella Antigen - Final Urine,Clean Catch Streptococcus pneumoniae Antigen (M - Final Serology 03/24/18 03/22/18 Range/Units 20:15 15:12 Urine Color Yellow Dark Yellow (Yellow) Urine Clarity Clear Clear (Clear) Urine pH 6.0 5.5 (5.0-8.0) pH Units Ur Specific [place] 1.009 L > 1.030 H (1.010-1.025) Urine Protein Negative 100 H (Neg-Trace) mg/dL Urine Glucose (UA) Normal Normal (Normal) mg/dL Urine Ketones Negative 15 H (Negative) mg/dL Urine Blood Negative Negative (Negative) Urine Nitrite Negative Negative (Negative) Urine Bilirubin Negative Negative (Negative) Urine Urobilinogen Normal Normal (Normal) mg/dL Ur Leukocyte Esterase Negative Negative (Negative) Urine Microscopic RBC 5-15 H (0-3) per hpf Urine Microscopic WBC 5-15 H (0-3) per hpf Ur Squamous Epith Cells Many H (None-Few) per lpf Urine Bacteria None Seen (None-Few) per hpf Hyaline Casts None Seen (None-Few) per lpf Ur Culture Indicated? NO NO (NO) - Impressions Impressions Chest X-Ray 03/24/18 15:40 IMPRESSION: Worsening bibasilar airspace opacity and bilateral pleural effusions over 2 days. Differential diagnosis includes bibasilar pneumonia versus pulmonary edema either from volume overload or congestive heart failure. D/ / Darrius Burrell MD / Darrius Burrell MD Interpreting Provider: Darrius Burrell MD Echocardiogram 03/24/18 16:47 Impressions: LVEF 60%. Normal LV chamber size and function. Mild asymmetric hypetrophy of the basal septum. No obstruction. Mild left ventricular diastolic dysfunction. Normal right ventricular structure and function. Mild tricuspid regurgitation. Mild pulmonary hypertension. Estimated RVSP is 41 mmHg. There is circumferential pericardial effusion, which was moderate anteriorly with echogenic material adherent to the RV and small inferiorly. There is no echocardiographic evidence of tamponade. Left Ventricular Wall Motion: Rest Echo Findings All wall segments showed normal motion. Findings: Study Quality * Technically adequate exam. ECG Findings * Normal sinus rhythm. Left Ventricle * LVEF 60%. * Normal LV chamber size and function. * Mild asymmetric hypetrophy of the basal septum. No obstruction. * Atypical septal motion c/w a postoperative septum. * Mild left ventricular diastolic dysfunction. Right Ventricle * Normal right ventricular structure and function. Left Atrium * Normal left atrial size. Right Atrium * Normal right atrial size. Interatrial Septum * Interatrial septum not well evaluated. Aortic Valve * Aortic valve not well visualized. * Grossly, mildly sclerotic appearing aortic valve leaflets. * No aortic regurgitation. * No aortic stenosis. Mitral Valve * Normal mitral valve structure and function. * No mitral regurgitation. * No mitral stenosis. Tricuspid Valve * Normal tricuspid valve structure. * Mild tricuspid regurgitation. * Mild pulmonary hypertension. * Estimated RVSP is 41 mmHg. * Estimated RA pressure is 5 mmHg. Pulmonic Valve * Normal pulmonic valve structure and function. * No pulmonic regurgitation. Aorta * Normally sized aortic root. Pericardium * There is circumferential pericardial effusion, which was moderate anteriorly with echogenic material adherent to the RV and small inferiorly. * There is no echocardiographic evidence of tamponade. IVC * Normal IVC dimensions and inspiratory collapse. Pulmonary Artery * Normal visualized portions of the main pulmonary artery. Exam - Constitutional Vitals: Temp Pulse Resp BP Pulse Ox 97.6 F 86 15 106/64 94 03/25/18 10:42 03/25/18 10:42 03/25/18 10:42 03/25/18 10:42 03/25/18 10:42 General appearance: average body habitus, cooperative, no acute distress - Head Head exam: Present: atraumatic, normal inspection, normocephalic - Eye Eye exam: Present: EOMI, normal appearance, PERRL Pupils: Present: normal accommodation - ENT ENT exam: Present: mucous membranes moist - Neck Neck exam: Present: normal inspection - Respiratory Respiratory exam: Present: CTAB. Absent: rales, respiratory distress, rhonchi, wheezes - Cardiovascular Cardiovascular exam: Present: RRR, +S1, +S2 - GI/Abdominal GI/Abdominal exam: Present: soft. Absent: distended, normal bowel sounds, tenderness - Extremities Exam Extremities exam: Present: normal inspection. Absent: joint swelling, pedal edema, tenderness - Neurological Exam Neurological exam: Present: alert, oriented X3, no focal deficits - Psychiatric Psychiatric exam: Present: normal affect, normal mood - Skin Skin exam: Present: dry, intact, normal color, warm Consult Discharge Plan - Plan Referrals: Rojas Campoverde MD [Primary Care Provider] - 04/04/18 10:00 am
--- NOTE | 2018-03-25 12:58 | Internal Med Progress Note ---
Hospitalist Progress Note - Encounter Date of Encounter: 03/25/18 Time of Encounter: 09:35 - Subjective Interval History: Pt was seen and assessed at bedside at 0935. She is alert, awake, in no distress. Pt states that she is feeling better and is accepting of going to [facility] for admission to rehab. She denies nausea, vomiting, diarrhea, abdominal pain, headache, vision changes, or dizziness. She denies cough, fever, chills. Pt was to be discharged yesterday, however, a repeat chest xray was completed and pt was found to have worsening pneumonia vs pulmonary congestion and was not discharged. Will repeat today and will expect pt to be discharged as it may take some time for pna to resolve on xray. - Exam Vitals: Temp Pulse Resp BP Pulse Ox 97.6 F 86 15 106/64 94 03/25/18 10:42 03/25/18 10:42 03/25/18 10:42 03/25/18 10:42 03/25/18 10:42 Exam: General: Pt resting quietly on bed, no distress. Skin: pwd, no rashes, lesions, redness Neurological: Pt is alert and awake, oriented x 3, Speech is clear, PERRLA, EOMI , no nystagmus, no pronator drift. strength equal x 4 extremities HEENT: mucous mumbranes moist, no conjuctival pallor Neck: supple, no tracheal deviation, no lymphadenopathy, tenderness, no thyromegaly Heart: S1S2 heard without gallops, clicks, murmurs, no bradycardia or tachycardia, pt has no peripheral edema, pedal and radial pulses palpable bilaterally. Lungs: clear throughout without wheezing, rales, or ronchi, respirations are unlabored Abdomen: soft and non tender with bowel sound present, no hepatomegaly. Psych: Normal affect with good eye contact - Assessment and Plan (1) Healthcare-associated pneumonia Current Visit: Yes Status: Acute Assessment and Plan: No leukocytosis, fever, chills, tachycardia, or hypotension. Repeat CXR for PNA resolution. CXR shows worsening bibasilar airspace the pacing bilateral pleural effusions over 2 days. DDx was worsening pna vs CHF. Echo showed circumferential small and moderate pericardial effusion. Pt appears to be euvolemic and does not appear to be in fluid overload. Pt. on IV abx for 6 days (levaquin, Zosyn, and vancomycin) Immunocompromised with metastatic melanoma and right breast cancer Ambulate 3 times a day, up in chair 3 times a day Continue incentive spirometry Pt is not on 02, may use prn to maintain satis > 92% (2) UTI (urinary tract infection) Current Visit: Yes Status: Acute Assessment and Plan: Resolved. Urine culture negative. (3) Cancer of right female breast Current Visit: Yes Status: Chronic Assessment and Plan: Cancer of right breast--estrogen positive Being treated at the [facility] Follow outpatient after discharge. (4) Diabetes Current Visit: Yes Status: Chronic Assessment and Plan: A1c is 4.6. Chronic Continue home insulin dosing, reevaluate with primary care for continued need. Sliding scale and hypoglycemic protocol (5) HLD (hyperlipidemia) Current Visit: Yes Status: Chronic Assessment and Plan: Chronic. Continue home medications (6) HTN (hypertension) Current Visit: Yes Status: Chronic Assessment and Plan: BP stable, continue home meds. (7) Generalized weakness Current Visit: Yes Status: Acute Assessment and Plan: Improving In the setting of healthcare acquired pneumonia Pt to be discharged to [facility], continue PT/OT Increase oral fluid and food intake w/nutritional monitoring (8) GERD (gastroesophageal reflux disease) Current Visit: Yes Status: Chronic Assessment and Plan: Chronic, continue antiemetic prn. Pt takes no home medications. (9) Lymph node enlargement Current Visit: Yes Status: Chronic Assessment and Plan: Currently being treated with immunotherapy at the [facility] Recent scans at [facility] negative for abdominal organ, or lung metastasis. Continue to f/u as OP (10) Hypocalcemia Current Visit: Yes Status: Acute Assessment and Plan: Continues to remain hypocalcemic. Continue po supplementation after discharge. (11) Dehydration Current Visit: Yes Status: Resolved Assessment and Plan: Continue PO fluids and encourage oral intake DC IV fluids to CXR showing bibasilar pneumonia versus pulmonary edema either from volume overload or CHF - Time Spent with Patient Total time spent is greater than 50% in coordination of care (as documented) at patient's floor/unit and/or counseling patient: less than 15 minutes Plan of Care Discussed with: patient Internal Medicine: Result - Labs CBC & Chem 7: 03/25/18 07:08 03/25/18 06:30 Labs: Short CBC 08/14/18 Range/Units 07:08 WBC 7.9 (4.3-11.1) K/mcL Hgb 14.5 D (11.5-15.4) g/dL Hct 43.5 (35.3-44.9) % Plt Count 166 (140-400) K/mcL Neutrophils # 6.0 (1.6-8.9) K/mcL BMP 03/25/18 06:30 Sodium 136 Potassium 3.6 Chloride 109 H Carbon Dioxide 20 L BUN 13 Creatinine 0.52 L Glucose 119 H Calcium 7.7 L Liver Function 03/25/18 Range/Units 06:30 Total Bilirubin 0.7 (0.3-1.0) mg/dL AST 8 L (13-39) Units/L ALT < 3 L (7-52) Units/L Alkaline Phosphatase 48 (34-104) Units/L Albumin 2.2 L (3.5-5.7) g/dL Urine 03/24/18 Range/Units 20:15 Urine Color Yellow (Yellow) Urine Clarity Clear (Clear) Urine pH 6.0 (5.0-8.0) pH Units Ur Specific [place] 1.009 L (1.010-1.025) Urine Protein Negative (Neg-Trace) mg/dL Urine Glucose (UA) Normal (Normal) mg/dL - Impressions Impressions Chest X-Ray 03/24/18 15:40 IMPRESSION: Worsening bibasilar airspace opacity and bilateral pleural effusions over 2 days. Differential diagnosis includes bibasilar pneumonia versus pulmonary edema either from volume overload or congestive heart failure. D/ / Darrius Burrell MD / Darrius Burrell MD Interpreting Provider: Darrius Burrell MD Echocardiogram 03/24/18 16:47 Impressions: LVEF 60%. Normal LV chamber size and function. Mild asymmetric hypetrophy of the basal septum. No obstruction. Mild left ventricular diastolic dysfunction. Normal right ventricular structure and function. Mild tricuspid regurgitation. Mild pulmonary hypertension. Estimated RVSP is 41 mmHg. There is circumferential pericardial effusion, which was moderate anteriorly with echogenic material adherent to the RV and small inferiorly. There is no echocardiographic evidence of tamponade. Left Ventricular Wall Motion: Rest Echo Findings All wall segments showed normal motion. Findings: Study Quality * Technically adequate exam. ECG Findings * Normal sinus rhythm. Left Ventricle * LVEF 60%. * Normal LV chamber size and function. * Mild asymmetric hypetrophy of the basal septum. No obstruction. * Atypical septal motion c/w a postoperative septum. * Mild left ventricular diastolic dysfunction. Right Ventricle * Normal right ventricular structure and function. Left Atrium * Normal left atrial size. Right Atrium * Normal right atrial size. Interatrial Septum * Interatrial septum not well evaluated. Aortic Valve * Aortic valve not well visualized. * Grossly, mildly sclerotic appearing aortic valve leaflets. * No aortic regurgitation. * No aortic stenosis. Mitral Valve * Normal mitral valve structure and function. * No mitral regurgitation. * No mitral stenosis. Tricuspid Valve * Normal tricuspid valve structure. * Mild tricuspid regurgitation. * Mild pulmonary hypertension. * Estimated RVSP is 41 mmHg. * Estimated RA pressure is 5 mmHg. Pulmonic Valve * Normal pulmonic valve structure and function. * No pulmonic regurgitation. Aorta * Normally sized aortic root. Pericardium * There is circumferential pericardial effusion, which was moderate anteriorly with echogenic material adherent to the RV and small inferiorly. * There is no echocardiographic evidence of tamponade. IVC * Normal IVC dimensions and inspiratory collapse. Pulmonary Artery * Normal visualized portions of the main pulmonary artery. Consult Discharge Plan - Plan Instructions: Pneumonia (DC) Additional Instructions: Follow-up appointments: If there is not an appointment listed below, please call your physician and schedule a follow-up appointment. If you have congestive heart failure and your symptoms return, make an appointment with your physician. Medication List: Carry an up to date list of medications you are taking at all time. We have given you an updated medication list including any new medications that you have been prescribed. Please provide that list to your primary provider Symptoms: If your condition changes or you experience any of the following symptoms, notify your physician immediately: Unusual or worsening pain, fever, persistent nausea and vomiting, bleeding, increase in swelling (especially in your legs), sudden weight gain, extreme dizziness, chest pain, increased drainage or redness from a wound or incision. Go to the emergency department if you experience a problem with breathing. Weights: If you have a history of swelling or shortness of breath, weigh yourself daily and notify your physician if you have a weight gain of two or more pounds in one day or 5 or more pounds in a week. If you experience any of the warning signs for stroke: Sudden numbness or weakness of the face, arm or leg; especially on one side of the body, sudden confusion, trouble speaking or understanding, sudden trouble seeing in one or both eyes, sudden trouble walking, dizziness, loss of balance or coordination, sudden sever headache with no cause; Call 911 or go to the emergency room. Stroke is a medical emergency. Some risk factors for stroke: Age, cigarette smoking, diabetes, excessive alcohol consumption, family history , high blood pressure, overweight, physical inactivity, prior stroke, heart attack, diagnosis of carotid artery stenosis or other artery disease. If you smoke, STOP: Smoking or tobacco use significantly increases your risk of heart and lung disease. Your chance of disease greatly increases if you continue to smoke. For more information, call the [place] tobacco quit line for smoking cessation 8-385- -NOW ( ) Referrals: Rojas Campoverde MD [Primary Care Provider] - 04/04/18 10:00 am (2) UTI (urinary tract infection) Qualifiers: Urinary tract infection type: acute cystitis Hematuria presence: without hematuria Qualified Code(s): N30.00 - Acute cystitis without hematuria (3) Cancer of right female breast Qualifiers: Breast location: unspecified site of breast Estrogen receptor status: unspecified Qualified Code(s): C50.911 - Malignant neoplasm of unspecified site of right female breast (4) Diabetes Qualifiers: Diabetes mellitus type: type 2 Diabetes mellitus nursing home insulin use: with terminal make up operator use Diabetes mellitus complication status: with unspecified complications Qualified Code(s): E11.8 - Type 2 diabetes mellitus with unspecified complications; Z79.4 - prison (current) use of insulin (5) HLD (hyperlipidemia) Qualifiers: Hyperlipidemia type: pure hypercholesterolemia Qualified Code(s): E78.00 - Pure hypercholesterolemia, unspecified; E78.0 - Pure hypercholesterolemia (6) HTN (hypertension) Qualifiers: Hypertension type: essential hypertension Qualified Code(s): I10 - Essential (primary) hypertension (8) GERD (gastroesophageal reflux disease) Qualifiers: Esophagitis presence: without esophagitis Qualified Code(s): K21.9 - Gastro- esophageal reflux disease without esophagitis
[2018-03-25 16:40] LABS: INR 1.1; Prothrombin Time 12.5 Seconds (9.4-12.1)
--- NOTE | 2018-03-25 16:49 | Pulmonology Consult Note ---
<[place] - Last Filed: 03/25/18 16:46> Date of Encounter: 03/25/18 Time of Encounter: 16:46 Assessment and Plan (1) Pleural effusion Current Visit: Yes Status: Acute Chest xray shows increased opacity of the right lung lobe when compared to her initial chest xray. Bedside ultrasound was used to assess the lungs and there was fluid noted in the right lower lung base. -Pending CT of the chest -Thoracentesis tomorrow morning -Concern for malignant effusion, will order cytology upon thoracentesis -Awaiting BNP -Awaiting INR/PT (2) Lower extremity edema Current Visit: Yes Status: Acute +3 pitting edema of bilateral lower legs. It is likely third spacing as her albumin is low and she is has poor oral intake. Her recent echo showed preserved EF of 60% with mild diastolic dysfunction. -Managed by primary -Continue a protein rich diet -Unsure if lasix would be beneficial (3) Pneumonia Current Visit: Yes Status: Suspected Concern for pneumonia, although seems unlikely due to the chest xray showing more likely an effusion. She has no leukocytosis and no oxygen requirement at rest although she is requiring oxygen with exertion. She is not on home oxygen. Infectious disease is following, she is currently on vancomycin and zosyn per primary team and infectious disease recommendations. -Awaiting chest CT -Continue recommendations per primary Qualifiers: Pneumonia type: due to unspecified organism Laterality: right Lung location: lower lobe of lung Qualified Code(s): J18.1 - Lobar pneumonia, unspecified organism (4) Metastatic melanoma Current Visit: Yes Status: Chronic She has history of right foot melanoma which has metasatized to her right thigh and has lymph node involvements. She also has history of recently diagnosed right breast cancer per patient. Continue management per primary. -Concern for malignant pleural effusion -Awaiting thoracentesis tomorrow morning (5) Diabetes Current Visit: Yes Status: Chronic History of insulin dependent diabetes. Her most recent point of care glucose is 119 and she is on long acting and short acting insulin. -Managed by primary Qualifiers: Diabetes mellitus type: type 2 Diabetes mellitus terminal clerk insulin use: with terminal clerk use Diabetes mellitus complication status: with unspecified complications Qualified Code(s): E11.8 - Type 2 diabetes mellitus with unspecified complications; Z79.4 - USP (current) use of insulin (6) GERD (gastroesophageal reflux disease) Current Visit: Yes Status: Chronic Chronic and at home was on nexium. Currently she is not complaining of it and is not on anti reflex medications. -Recommendations by primary Qualifiers: Esophagitis presence: esophagitis presence not specified Qualified Code(s) : K21.9 - Gastro-esophageal reflux disease without esophagitis (7) Lymph node enlargement Current Visit: Yes Status: Chronic History of right foot melanoma and right thigh metastasis with right leg lymph node involvement. She is on immunotherapy at [facility]. She also has history of left sided breast cancer which was in remission for the past 15 years and recently was found to have the same estrogen positive right breast involvement. -Managed outpatient with immunotherapy -Will do thoracentesis tomorrow morning and will order cytology to better evaluate if there is malignancy (8) Breast cancer Current Visit: Yes Status: Chronic History of estrogen positive left sided breast cancer which was in remission was chemotherapy and radiation for the past 15 years and recently she stated right breast FNA showed estrogen positive breast cancer as well. -Plan for thoracentesis in the morning with cytology to better evaluate the effusion Qualifiers: Breast location: unspecified site of breast Estrogen receptor status: positive Patient sex: female Laterality: unspecified laterality Qualified Code(s): C50.919 - Malignant neoplasm of unspecified site of unspecified female breast; Z17.0 - Estrogen receptor positive status [ER+] History of Present Illness Consult date: 03/25/18 Requesting physician: Hilaria Posada Reason for consult: dyspnea Chief complaint: shortness of breath History of present illness: Ms. Valerio is a 72 year old female who presented to the ED on 03/18/18 for shortness of breath. She stated the shortness of breath and nasal congestion was ongoing for the past one week prior to presenting. She has significant past medical history of melanoma of her right foot which has metastatic lymph node involvement to her right thigh. She is getting immunotherapy for the melanoma at [facility] and her last therapy was about 4 weeks ago. She also has history of left estrogen positive breast cancer and had been in remission for the past 15 years due to chemotherapy and radiation. She noticed recently she was found to have right breast with a FNA showing similar pathological findings to her previous breast cancer. Since her presentation she had a chest x -ray and ECHO. Her most recent chest xray shows some increased opacity at the right lower lobe than previous chest x-rays. Her echo showed preserved EF with a mild diastolic dysfunction. Additionally, she has been on zosyn day 7, vancomycin day 2, and had received levaquin for 6 days before it was stopped and switched to vancomycin. Today she denied shortness of breath at rest but noted shortness of breath with exertion and orthopnea and requires laying in an inclined manner to feel comfortable. Additionally stated her legs have been more edematous recently and they feel weaker than usual. She denied fever, chills, nausea, vomiting, chest pain, diarrhea, dysuria or constipation. Past Med Surg Social Fam HX - Past Medical History Medical history: cancer, coronary artery disease, diabetes, hyperlipidemia, hypertension, myocardial infarction, osteoporosis, syncope Additional medical history: Breast cancer, Melanoma- Right foot, RLE, right groin, Stage 3. Psychiatric history: no psych history - Past Surgical History Surgical History: breast surgery (lumpectomy 2001) Additional surgical history: Heart stent, Skin Graphs, Lymph node removal, Incision of the right foot. - Social History Smoking Status: Never smoker Smokeless Tobacco Status: No Alcohol use: rarely Drug use: none - Family History Father Family Member Ethnicity: Non- Living Status: Hx Family Cardiac Disorders: Yes (RI, HTN) Hx Family GI Disorders: Yes (Ulcers) Hx Family Endocrine Disorder: Yes (Gallstones, DM) Mother Family Member Ethnicity: Non- Living Status: Hx Family Cardiac Disorders: Yes (Tachycardia) Hx Family Cancer: Yes (Melanoma, Breast) Brother Family Member Ethnicity: Non- Living Status: Hx Family Cardiac Disorders: Yes (RI) Hx Family Cancer: Yes (Melanoma) Hx Family GI Disorders: Yes (Ulcers) Medications and Allergies Ascorbic Acid [Vitamin C] 500 mg PO DAILY #0 05/19/15 [History] Biotin 1 mg PO DAILY 05/19/15 [History] Cholecalciferol (D-3) [Vitamin D] 5,000 unit PO DAILY #0 05/19/15 [History] Pravastatin Sodium [Pravachol] 20 mg PO HS 05/19/15 [History] Vitamin E Acid Succinate [Vitamin E] 800 units PO DAILY #0 05/19/15 [History] Aspirin Enteric Coated [Aspirin EC] 81 mg PO DAILY 01/10/16 [History] Anastrozole [Arimidex] 1 mg PO DAILY 05/08/17 [History] Carvedilol 3.125 mg PO BID 05/08/17 [History] Esomeprazole Magnesium [Nexium] 40 mg PO DAILY 05/08/17 [History] Lisinopril 2.5 mg PO DAILY 05/08/17 [History] Nitroglycerin [Nitrostat] 0.4 mg SL Q5M PRN 05/08/17 [History] Polyethylene Glycol 3350 [MiraLAX] 17 gm PO DAILY PRN 05/08/17 [History] Potassium Chloride 10 meq PO DAILY #30 tab.er.prt 03/12/18 [Rx] Ferrous Gluconate 324 mg PO DAILY 03/19/18 [History] Insulin Glargine [Lantus] 20 unit SQ HS PRN 03/19/18 [History] Levofloxacin [Levaquin] 750 mg PO QDPC #4 tablet 03/19/18 [Rx] Nystatin [Nystatin Suspension] 100,000 units PO QID 03/19/18 [History] Ondansetron HCl [Zofran] 4 mg PO Q8HR PRN #21 tab 03/19/18 [Rx] Doxycycline 100 mg PO BID #4 capsule 03/25/18 [Rx] levoFLOXacin [Levaquin] 750 mg PO DAILY #2 tablet 03/25/18 [Rx] 3 Allergy/AdvReac Type Severity Reaction Status Date / Time atorvastatin [From Lipitor] Allergy Muscle Pain Verified 01/10/16 18:31 codeine Allergy See Verified 03/17/15 21:29 Comments All Systems: The remainder of the systems were reviewed and are negative - Constitutional Constitutional: no chills, no fever(s) - EENT Nose, mouth and throat: no headache(s) - Cardiovascular Cardiovascular: edema, orthopnea, no chest pain - Respiratory Respiratory: dyspnea, dyspnea on exertion, no cough - Gastrointestinal Gastrointestinal: no diarrhea, no nausea, no vomiting - Genitourinary Genitourinary: no difficulty urinating, no dysuria, no hematuria - Musculoskeletal Musculoskeletal: other (bilateral leg pain) - Neurological Neurological: no headache(s), no numbness, no weakness - Psychiatric Psychiatric: no anxiety, no depression - Endocrine Endocrine: no palpitations - Allergic/Immunologic Allergic/Immunologic: no wheezing Physical Examination Vital Signs: Vital Signs, Last 4 Hours Temp Pulse Resp BP Pulse Ox 08/14/18 15:11 96.7 F L 89 15 109/75 97 General appearance: no acute distress Eyes: nonicteric ENT: oropharynx moist Auscultation: right: diminished breath sounds (mildly diminished on right lower lobe), bilateral: clear Cardiovascular: regular rate and rhythm Gastrointestinal: normoactive bowel sounds, soft, non-tender Extremities: no cyanosis (right upper anterior thigh has erythema, which she eludes to history of lymph node metastasis), no clubbing, edema (+3 pitting edema bilateral lower legs) normal mental status mood appropriate, affect normal Results - Laboratory Findings CBC and BMP: 03/25/18 07:08 03/25/18 06:30 PT/INR, D-dimer PT 12.5 Seconds (9.4-12.1) H 03/25/18 16:27 Abnormal lab findings: Abnormal lab results RDW 14.9 % (11.5-14.5) H 03/25/18 07:08 PT 12.5 Seconds (9.4-12.1) H 03/25/18 16:27 Chloride 109 mEq/L (98-107) H 03/25/18 06:30 Carbon Dioxide 20 mEq/L (23-29) L 03/25/18 06:30 Creatinine 0.52 mg/dL (0.60-1.20) L 03/25/18 06:30 Glucose 119 mg/dL (70-105) H 03/25/18 06:30 POC Glucose 123 mg/dL (70-99) H 03/24/18 20:51 Calcium 7.7 mg/dL (8.6-10.3) L 03/25/18 06:30 AST 8 Units/L (13-39) L 03/25/18 06:30 ALT < 3 Units/L (7-52) L 03/25/18 06:30 Creatine Kinase 20 Units/L (30-223) L 03/19/18 06:15 Serum Total Protein 4.7 g/dL (6.4-8.9) L 03/25/18 06:30 Albumin 2.2 g/dL (3.5-5.7) L 03/25/18 06:30 Albumin/Globulin Ratio 0.9 (1.1-2.2) L 03/25/18 06:30 Ur Specific [place] 1.009 (1.010-1.025) L 03/24/18 20:15 Urine Microscopic RBC 5-15 per hpf (0-3) H 03/22/18 15:12 Urine Microscopic WBC 5-15 per hpf (0-3) H 03/22/18 15:12 Ur Squamous Epith Cells Many per lpf (None-Few) H 03/22/18 15:12 Vancomycin Trough 17 mcg/mL (5-10) H 03/25/18 06:30 - Diagnostic Findings Chest x-ray: image reviewed (increased opacity of the right lower lobe ) - Clinical Findings Intake & Output: Intake & Output 03/25/18 03/25/18 03/25/18 07:59 15:59 23:59 Intake Total 100 / 100 220 / 220 Balance 100 / 100 220 / 220 Consult Discharge Plan - Plan Instructions: Pneumonia (DC) Additional Instructions: Follow-up appointments: If there is not an appointment listed below, please call your physician and schedule a follow-up appointment. If you have congestive heart failure and your symptoms return, make an appointment with your physician. Medication List: Carry an up to date list of medications you are taking at all time. We have given you an updated medication list including any new medications that you have been prescribed. Please provide that list to your primary provider Symptoms: If your condition changes or you experience any of the following symptoms, notify your physician immediately: Unusual or worsening pain, fever, persistent nausea and vomiting, bleeding, increase in swelling (especially in your legs), sudden weight gain, extreme dizziness, chest pain, increased drainage or redness from a wound or incision. Go to the emergency department if you experience a problem with breathing. Weights: If you have a history of swelling or shortness of breath, weigh yourself daily and notify your physician if you have a weight gain of two or more pounds in one day or 5 or more pounds in a week. If you experience any of the warning signs for stroke: Sudden numbness or weakness of the face, arm or leg; especially on one side of the body, sudden confusion, trouble speaking or understanding, sudden trouble seeing in one or both eyes, sudden trouble walking, dizziness, loss of balance or coordination, sudden sever headache with no cause; Call 911 or go to the emergency room. Stroke is a medical emergency. Some risk factors for stroke: Age, cigarette smoking, diabetes, excessive alcohol consumption, family history , high blood pressure, overweight, physical inactivity, prior stroke, heart attack, diagnosis of carotid artery stenosis or other artery disease. If you smoke, STOP: Smoking or tobacco use significantly increases your risk of heart and lung disease. Your chance of disease greatly increases if you continue to smoke. For more information, call the [place] tobacco quit line for smoking cessation 2-820- -NOW ( ) Referrals: Rojas Campoverde MD [Primary Care Provider] - 04/04/18 10:00 am Prescriptions: Doxycycline 100 mg PO BID #4 capsule levoFLOXacin [Levaquin] 750 mg PO DAILY #2 tablet <Hung Pat - Last Filed: 03/26/18 06:36> Date of Encounter: 03/26/18 All Systems: The remainder of the systems were reviewed and are negative Physical Examination Vital Signs: Vital Signs, Last 4 Hours Temp Pulse Resp BP Pulse Ox 03/26/18 03:36 97.8 F 85 16 144/74 98 Results - Laboratory Findings CBC and BMP: 03/26/18 05:53 03/26/18 04:18 PT/INR, D-dimer PT 12.5 Seconds (9.4-12.1) H 03/25/18 16:27 Abnormal lab findings: Abnormal lab results RBC 3.80 M/mcL (3.82-4.97) L 03/26/18 05:53 RDW 15.1 % (11.5-14.5) H 03/26/18 05:53 Plt Count 138 K/mcL (140-400) L 03/26/18 05:53 PT 12.5 Seconds (9.4-12.1) H 03/25/18 16:27 Chloride 108 mEq/L (98-107) H 03/26/18 04:18 Carbon Dioxide 21 mEq/L (23-29) L 03/26/18 04:18 Glucose 116 mg/dL (70-105) H 03/26/18 04:18 POC Glucose 157 mg/dL (70-99) H 03/25/18 20:34 Calcium 7.9 mg/dL (8.6-10.3) L 03/26/18 04:18 AST 12 Units/L (13-39) L 03/26/18 04:18 ALT 4 Units/L (7-52) L 03/26/18 04:18 Creatine Kinase 20 Units/L (30-223) L 03/19/18 06:15 B-Natriuretic Peptide 104 pg/mL (Less than 100) H 03/25/18 16:27 Serum Total Protein 4.8 g/dL (6.4-8.9) L 03/26/18 04:18 Albumin 2.4 g/dL (3.5-5.7) L 03/26/18 04:18 Albumin/Globulin Ratio 1.0 (1.1-2.2) L 03/26/18 04:18 Ur Specific [place] 1.009 (1.010-1.025) L 03/24/18 20:15 Urine Microscopic RBC 5-15 per hpf (0-3) H 03/22/18 15:12 Urine Microscopic WBC 5-15 per hpf (0-3) H 03/22/18 15:12 Ur Squamous Epith Cells Many per lpf (None-Few) H 03/22/18 15:12 Vancomycin Trough 17 mcg/mL (5-10) H 03/25/18 06:30 - Clinical Findings Intake & Output: Intake & Output 03/25/18 03/25/18 03/26/18 15:59 23:59 07:59 Intake Total 220 / 220 350 / 350 100 / 100 Output Total 400 / 400 Balance 220 / 220 350 / 350 -300 / -300 - Attending Attestation I examined this patient and my medical decision-making was reviewed with the Resident Physician. I agree with the documented findings, disposition and treatment plan as described except to the extent set forth below. We independently had [id number] contact with the patient Patient seen and examined at bedside Labs, radiology, chart personally reviewed. Impression: Right pleural effusion in a patient with known malignancy. Overall picture is concerning for third spacing of fluid however malignancy cannot be excluded giving abnormalities on echocardiogram including pericardial effusion. After performing bedside ultrasonography there is no clear evidence of complicated features that would suggest empyema/complicated parapneumonic effusion Recs: CT scan of the thorax Likely will need diagnostic thoracentesis
[2018-03-25] MEDS: Insulin DETEMIR 100 UNIT/ML X5UNITS SQ SCH (20:26)
[2018-03-26] MEDS ORDERED: Ipratropium/Albuterol Neb 3 ML IH PRN (02:20)
[2018-03-26] MEDS: *HR* Heparin 5,000 UNIT/ML VIAL SQ SCH ×2 (05:40→16:45)
[2018-03-26 05:47] LABS: BUN/Creatinine Ratio 19 (6-26); Blood Urea Nitrogen 17 mg/dL (8-23); Carbon Dioxide 21 mEq/L (23-29); Chloride 108 mEq/L (98-107); Potassium 3.7 mEq/L (3.5-5.1); Sodium 137 mEq/L (136-145)
[2018-03-26 05:48] LABS: Alanine Aminotransferase 4 Units/L (7-52); Albumin 2.4 g/dL (3.5-5.7); Alkaline Phosphatase 48 Units/L (34-104); Aspartate Amino Transferase 12 Units/L (13-39); Bilirubin,Total 0.7 mg/dL (0.3-1.0); Calcium 7.9 mg/dL (8.6-10.3); Globulin 2.4 g/dL (2.4-3.5); Glucose 116 mg/dL (70-105); Osmolality,Calculated 287 (280-300); Total Protein 4.8 g/dL (6.4-8.9); eGFR For Non-African Americans > 60 (> 60)
[2018-03-26] MEDS: Piperacillin/Tazobactam 3.375 GM in 0.9 % Sodium Chloride Mini Bag 100 ML IVPB SCH ×3 (05:50→21:15)
[2018-03-26 06:07] LABS: Basophils % 0.6 %; Eosinophils # 0.1 K/mcL (0.0-0.6); Hemoglobin 12.1 g/dL (11.5-15.4); Immature Granulocytes % 0.6 % (0-4); Lymphocytes % 14.3 %; Mean Corpuscular HGB Conc 32.7 g/dL (31.6-35.5); Mean Corpuscular Hemoglobin 31.8 pg (28.0-33.3); Mean Corpuscular Volume 97.4 fL (83.0-100.0); Mean Platelet Volume 9.9 fL (9.4-12.4); Monocytes # 0.6 K/mcL (0.0-1.3); Monocytes % 8.8 %; Neutrophils # 5.3 K/mcL (1.6-8.9); Platelet Count 138 K/mcL (140-400); Red Cell Distribution Width 15.1 % (11.5-14.5); Segmented Neutrophils % 74.7 %
--- NOTE | 2018-03-26 06:58 | Pulmonology Progress Note ---
Date of Encounter: 03/26/18 Time of Encounter: 06:57 Assessment and Plan (1) Pleural effusion Current Visit: Yes Status: Acute (2) Lower extremity edema Current Visit: Yes Status: Acute (3) Pneumonia Current Visit: Yes Status: Suspected Qualifiers: Pneumonia type: due to unspecified organism Laterality: right Lung location: lower lobe of lung Qualified Code(s): J18.1 - Lobar pneumonia, unspecified organism (4) Metastatic melanoma Current Visit: Yes Status: Chronic (5) Diabetes Current Visit: Yes Status: Chronic Qualifiers: Diabetes mellitus type: type 2 Diabetes mellitus snf insulin use: with terminal gauger use Diabetes mellitus complication status: with unspecified complications Qualified Code(s): E11.8 - Type 2 diabetes mellitus with unspecified complications; Z79.4 - assisted (current) use of insulin (6) GERD (gastroesophageal reflux disease) Current Visit: Yes Status: Chronic Qualifiers: Esophagitis presence: esophagitis presence not specified Qualified Code(s) : K21.9 - Gastro-esophageal reflux disease without esophagitis (7) Lymph node enlargement Current Visit: Yes Status: Chronic (8) Breast cancer Current Visit: Yes Status: Chronic Qualifiers: Breast location: unspecified site of breast Estrogen receptor status: positive Patient sex: female Laterality: unspecified laterality Qualified Code(s): C50.919 - Malignant neoplasm of unspecified site of unspecified female breast; Z17.0 - Estrogen receptor positive status [ER+] Objective PUL Vital signs: Last Vital Signs Temp 97.8 F 03/26/18 03:36 Pulse 85 03/26/18 03:36 Resp 16 03/26/18 03:36 BP 144/74 03/26/18 03:36 Pulse Ox 98 03/26/18 03:36 Results - Laboratory Findings CBC and BMP: 03/26/18 05:53 03/26/18 04:18 PT/INR, D-dimer PT 12.5 Seconds (9.4-12.1) H 03/25/18 16:27 Abnormal lab findings: Abnormal lab results RBC 3.80 M/mcL (3.82-4.97) L 03/26/18 05:53 RDW 15.1 % (11.5-14.5) H 03/26/18 05:53 Plt Count 138 K/mcL (140-400) L 03/26/18 05:53 PT 12.5 Seconds (9.4-12.1) H 03/25/18 16:27 Chloride 108 mEq/L (98-107) H 03/26/18 04:18 Carbon Dioxide 21 mEq/L (23-29) L 03/26/18 04:18 Glucose 116 mg/dL (70-105) H 03/26/18 04:18 POC Glucose 157 mg/dL (70-99) H 03/25/18 20:34 Calcium 7.9 mg/dL (8.6-10.3) L 03/26/18 04:18 AST 12 Units/L (13-39) L 03/26/18 04:18 ALT 4 Units/L (7-52) L 03/26/18 04:18 Creatine Kinase 20 Units/L (30-223) L 03/19/18 06:15 B-Natriuretic Peptide 104 pg/mL (Less than 100) H 03/25/18 16:27 Serum Total Protein 4.8 g/dL (6.4-8.9) L 03/26/18 04:18 Albumin 2.4 g/dL (3.5-5.7) L 03/26/18 04:18 Albumin/Globulin Ratio 1.0 (1.1-2.2) L 03/26/18 04:18 Ur Specific [place] 1.009 (1.010-1.025) L 03/24/18 20:15 Urine Microscopic RBC 5-15 per hpf (0-3) H 03/22/18 15:12 Urine Microscopic WBC 5-15 per hpf (0-3) H 03/22/18 15:12 Ur Squamous Epith Cells Many per lpf (None-Few) H 03/22/18 15:12 Vancomycin Trough 17 mcg/mL (5-10) H 03/25/18 06:30 - Clinical Findings Intake & Output: Intake & Output 03/25/18 03/25/18 03/26/18 15:59 23:59 07:59 Intake Total 220 / 220 350 / 350 350 / 350 Output Total 400 / 400 Balance 220 / 220 350 / 350 -50 / -50 Consult Discharge Plan - Plan Instructions: Pneumonia (DC) Additional Instructions: Follow-up appointments: If there is not an appointment listed below, please call your physician and schedule a follow-up appointment. If you have congestive heart failure and your symptoms return, make an appointment with your physician. Medication List: Carry an up to date list of medications you are taking at all time. We have given you an updated medication list including any new medications that you have been prescribed. Please provide that list to your primary provider Symptoms: If your condition changes or you experience any of the following symptoms, notify your physician immediately: Unusual or worsening pain, fever, persistent nausea and vomiting, bleeding, increase in swelling (especially in your legs), sudden weight gain, extreme dizziness, chest pain, increased drainage or redness from a wound or incision. Go to the emergency department if you experience a problem with breathing. Weights: If you have a history of swelling or shortness of breath, weigh yourself daily and notify your physician if you have a weight gain of two or more pounds in one day or 5 or more pounds in a week. If you experience any of the warning signs for stroke: Sudden numbness or weakness of the face, arm or leg; especially on one side of the body, sudden confusion, trouble speaking or understanding, sudden trouble seeing in one or both eyes, sudden trouble walking, dizziness, loss of balance or coordination, sudden sever headache with no cause; Call 911 or go to the emergency room. Stroke is a medical emergency. Some risk factors for stroke: Age, cigarette smoking, diabetes, excessive alcohol consumption, family history , high blood pressure, overweight, physical inactivity, prior stroke, heart attack, diagnosis of carotid artery stenosis or other artery disease. If you smoke, STOP: Smoking or tobacco use significantly increases your risk of heart and lung disease. Your chance of disease greatly increases if you continue to smoke. For more information, call the [place] tobacco quit line for smoking cessation QUIT-NOW ( ) Referrals: Rojas Campoverde MD [Primary Care Provider] - 04/04/18 10:00 am Prescriptions: Doxycycline 100 mg PO BID #4 capsule levoFLOXacin [Levaquin] 750 mg PO DAILY #2 tablet
--- NOTE | 2018-03-26 07:19 | Pulmonology Progress Note ---
<Arun Gaming - Last Filed: 03/26/18 08:03> Date of Encounter: 03/26/18 Time of Encounter: 07:18 Assessment and Plan (1) Pleural effusion Current Visit: Yes Status: Acute Both ultrasound and CT revealed large bilateral pleural effusions. Differential includes third spacing due to hypoalbuminemia, infectious process felt to be less likely. On CT patient has some pleural irregularities with no discernible parenchymal mass. Given the patient's history of malignant melanoma and breast cancer malignant effusion remains on the differential of felt to be less likely. Given the concern for cancer it was recommended that the patient undergo thoracentesis for fluid analysis including cytology. After discussion with the patient she felt like her shortness of breath and weakness would make it difficult for her to sit up at the side of the bed for this procedure performed at bedside and she would prefer that the interventional radiologist attempt to perform a thoracentesis a more comfortable position for the patient. IR is been consulted. Fluid analysis labs have been ordered including cell count and differential, culture Gram stain, cytology. (2) Healthcare-associated pneumonia Current Visit: Yes Status: Acute No evidence of parenchymal disease on CT. Plan for thoracentesis as discussed above, we will send fluid for culture. Further management per primary/ infectious disease. (3) Metastatic melanoma Current Visit: Yes Status: Chronic (4) Breast cancer Current Visit: Yes Status: Chronic Qualifiers: Breast location: unspecified site of breast Estrogen receptor status: positive Patient sex: female Laterality: unspecified laterality Qualified Code(s): C50.919 - Malignant neoplasm of unspecified site of unspecified female breast; Z17.0 - Estrogen receptor positive status [ER+] Subjective Principal diagnosis: Pleural effusion Interval history: Patient seen and examined at bedside. Patient reports that she continues to feel weak and has mild shortness of breath particularly with movement. She has fever, chills, cough, congestion, chest pain Objective PUL Vital signs: Last Vital Signs Temp 98 F 03/26/18 07:00 Pulse 90 03/26/18 07:00 Resp 18 03/26/18 07:00 BP 144/77 03/26/18 07:00 Pulse Ox 92 03/26/18 07:00 General appearance: no acute distress ENT: oropharynx dry Effort: normal Auscultation: bilateral: diminished breath sounds Cardiovascular: regular rate and rhythm Gastrointestinal: normoactive bowel sounds, soft, non-tender Integumentary: normal Extremities: edema (2+ pitting edema to LE bilaterally) normal mental status, non-focal exam Results - Laboratory Findings CBC and BMP: 03/26/18 05:53 03/26/18 04:18 PT/INR, D-dimer PT 12.5 Seconds (9.4-12.1) H 03/25/18 16:27 Abnormal lab findings: Abnormal lab results RBC 3.80 M/mcL (3.82-4.97) L 03/26/18 05:53 RDW 15.1 % (11.5-14.5) H 03/26/18 05:53 Plt Count 138 K/mcL (140-400) L 03/26/18 05:53 PT 12.5 Seconds (9.4-12.1) H 03/25/18 16:27 Chloride 108 mEq/L (98-107) H 03/26/18 04:18 Carbon Dioxide 21 mEq/L (23-29) L 03/26/18 04:18 Glucose 116 mg/dL (70-105) H 03/26/18 04:18 POC Glucose 157 mg/dL (70-99) H 03/25/18 20:34 Calcium 7.9 mg/dL (8.6-10.3) L 03/26/18 04:18 AST 12 Units/L (13-39) L 03/26/18 04:18 ALT 4 Units/L (7-52) L 03/26/18 04:18 Creatine Kinase 20 Units/L (30-223) L 03/19/18 06:15 B-Natriuretic Peptide 104 pg/mL (Less than 100) H 03/25/18 16:27 Serum Total Protein 4.8 g/dL (6.4-8.9) L 03/26/18 04:18 Albumin 2.4 g/dL (3.5-5.7) L 03/26/18 04:18 Albumin/Globulin Ratio 1.0 (1.1-2.2) L 03/26/18 04:18 Ur Specific [place] 1.009 (1.010-1.025) L 03/24/18 20:15 Urine Microscopic RBC 5-15 per hpf (0-3) H 03/22/18 15:12 Urine Microscopic WBC 5-15 per hpf (0-3) H 03/22/18 15:12 Ur Squamous Epith Cells Many per lpf (None-Few) H 03/22/18 15:12 Vancomycin Trough 17 mcg/mL (5-10) H 03/25/18 06:30 - Clinical Findings Intake & Output: Intake & Output 03/25/18 03/25/18 03/26/18 15:59 23:59 07:59 Intake Total 220 / 220 350 / 350 350 / 350 Output Total 400 / 400 Balance 220 / 220 350 / 350 -50 / -50 Consult Discharge Plan - Plan Instructions: Pneumonia (DC) Additional Instructions: Follow-up appointments: If there is not an appointment listed below, please call your physician and schedule a follow-up appointment. If you have congestive heart failure and your symptoms return, make an appointment with your physician. Medication List: Carry an up to date list of medications you are taking at all time. We have given you an updated medication list including any new medications that you have been prescribed. Please provide that list to your primary provider Symptoms: If your condition changes or you experience any of the following symptoms, notify your physician immediately: Unusual or worsening pain, fever, persistent nausea and vomiting, bleeding, increase in swelling (especially in your legs), sudden weight gain, extreme dizziness, chest pain, increased drainage or redness from a wound or incision. Go to the emergency department if you experience a problem with breathing. Weights: If you have a history of swelling or shortness of breath, weigh yourself daily and notify your physician if you have a weight gain of two or more pounds in one day or 5 or more pounds in a week. If you experience any of the warning signs for stroke: Sudden numbness or weakness of the face, arm or leg; especially on one side of the body, sudden confusion, trouble speaking or understanding, sudden trouble seeing in one or both eyes, sudden trouble walking, dizziness, loss of balance or coordination, sudden sever headache with no cause; Call 911 or go to the emergency room. Stroke is a medical emergency. Some risk factors for stroke: Age, cigarette smoking, diabetes, excessive alcohol consumption, family history , high blood pressure, overweight, physical inactivity, prior stroke, heart attack, diagnosis of carotid artery stenosis or other artery disease. If you smoke, STOP: Smoking or tobacco use significantly increases your risk of heart and lung disease. Your chance of disease greatly increases if you continue to smoke. For more information, call the [place] tobacco quit line for smoking cessation 6-494- QUIT-NOW ( ) Referrals: Rojas Campoverde MD [Primary Care Provider] - 04/04/18 10:00 am Prescriptions: Doxycycline 100 mg PO BID #4 capsule levoFLOXacin [Levaquin] 750 mg PO DAILY #2 tablet <Hung Pat W - Last Filed: 03/26/18 08:46> Date of Encounter: 03/26/18 Objective PUL Vital signs: Last Vital Signs Temp 98 F 03/26/18 07:00 Pulse 90 03/26/18 07:00 Resp 18 03/26/18 07:00 BP 144/77 03/26/18 07:00 Pulse Ox 92 03/26/18 07:00 Results - Laboratory Findings CBC and BMP: 03/26/18 05:53 03/26/18 04:18 PT/INR, D-dimer PT 12.5 Seconds (9.4-12.1) H 03/25/18 16:27 Abnormal lab findings: Abnormal lab results RBC 3.80 M/mcL (3.82-4.97) L 03/26/18 05:53 RDW 15.1 % (11.5-14.5) H 03/26/18 05:53 Plt Count 138 K/mcL (140-400) L 03/26/18 05:53 PT 12.5 Seconds (9.4-12.1) H 03/25/18 16:27 Chloride 108 mEq/L (98-107) H 03/26/18 04:18 Carbon Dioxide 21 mEq/L (23-29) L 03/26/18 04:18 Glucose 116 mg/dL (70-105) H 03/26/18 04:18 POC Glucose 157 mg/dL (70-99) H 03/25/18 20:34 Calcium 7.9 mg/dL (8.6-10.3) L 03/26/18 04:18 AST 12 Units/L (13-39) L 03/26/18 04:18 ALT 4 Units/L (7-52) L 03/26/18 04:18 Lactate Dehydrogenase 138 Units/L (140-271) L 03/26/18 04:18 Creatine Kinase 20 Units/L (30-223) L 03/19/18 06:15 B-Natriuretic Peptide 104 pg/mL (Less than 100) H 03/25/18 16:27 Serum Total Protein 4.8 g/dL (6.4-8.9) L 03/26/18 04:18 Albumin 2.4 g/dL (3.5-5.7) L 03/26/18 04:18 Albumin/Globulin Ratio 1.0 (1.1-2.2) L 03/26/18 04:18 Ur Specific [place] 1.009 (1.010-1.025) L 03/24/18 20:15 Urine Microscopic RBC 5-15 per hpf (0-3) H 03/22/18 15:12 Urine Microscopic WBC 5-15 per hpf (0-3) H 03/22/18 15:12 Ur Squamous Epith Cells Many per lpf (None-Few) H 03/22/18 15:12 Vancomycin Trough 17 mcg/mL (5-10) H 03/25/18 06:30 - Clinical Findings Intake & Output: Intake & Output 03/25/18 03/26/18 03/26/18 23:59 07:59 15:59 Intake Total 350 / 350 350 / 350 Output Total 400 / 400 Balance 350 / 350 -50 / -50 - Attending Attestation I examined this patient and my medical decision-making was reviewed with the Resident Physician. I agree with the documented findings, disposition and treatment plan as described except to the extent set forth below. We independently had [id number] contact with the patient Patient seen and examined at bedside Labs, radiology, chart personally reviewed. Impression: Bilateral pleural effusions likely secondary to third spacing of fluid given chronic illness and low protein levels and noted anasarca on exam. She does have some pleural-based irregularities given her malignancy history cancer cannot be fully excluded although I suspect this is unlikely. Recs: I recommend diagnostic thoracentesis but gave patient option of conservative management which with follow-up with her oncologist at [facility]. Patient is in agreement to proceed with diagnostic thoracentesis which because of patient comfort/weakness we have consulted IR and then hopefully this procedure can be performed in a semirecumbent position. Fluid analysis pending which we will follow-up on
[2018-03-26 07:37] LABS: Lactate Dehydrogenase 138 Units/L (140-271)
[2018-03-26] MEDS: Anastrozole 1 MG TABLET PO SCH (08:43)
[2018-03-26] MEDS: Aspirin Enteric Coated 81 MG Tablet PO SCH (08:44)
[2018-03-26] MEDS: Cholecalciferol (D-3) 1,000 UNIT TABLET PO SCH (08:44)
[2018-03-26] MEDS: Ascorbic Acid 500 MG TABLET PO SCH (08:44)
[2018-03-26] MEDS: Nystatin SUSP 5 ML UD.LIQ PO SCH ×4 (08:45→20:03)
[2018-03-26] MEDS: (Biotin [Biotin] 1 MG) PO SCH (08:45)
[2018-03-26] MEDS: Insulin LISPRO 300 UNITS/3 ML VIAL SQ SCH ×3 (08:46→16:33)
--- NOTE | 2018-03-26 10:28 | IR Procedure Note ---
Date of procedure: 03/26/18 Consent Obtained: Written consent Timeout: Correct patient and procedure verified, Correct site verified, Time out performed, Skin prep completed Local anesthetic: Lidocaine 1% Indications: Bilateral pleural effusions Procedure Performed: Right thoracentesis Was there an team assistant present: Yes Sports Medicine Masseur: Otis Lopes Results/Findings: U/S guided right thoracentesis Estimated blood loss (cc): 0 Complications: None; Tolerated procedure well Post Procedure Treatment Plan: Monitor on floor Specimen: Sample sent
[2018-03-26 12:50] LABS: RBC,Pleural Fluid < 0.002 M/mcL
[2018-03-26 12:52] LABS: Appearance of Pleural Fl Clear (Clear)
--- NOTE | 2018-03-26 13:24 | Infectious Disease Progress No ---
Date of Encounter: 03/26/18 Time of Encounter: 13:21 - Assessment and Plan (1) Healthcare-associated pneumonia Current Visit: Yes Status: Acute Location: Left lung. Causative organism: Unclear. Recently hospitalized at [facility] and [facility]. CXR showed retrocardia opacity consistent with airspace disease or pneumonia and small left pleural effusion. No SIRS criteria, but the patient's depressed immune system may hinder development of SIRS criteria. Repeat CXR showed worsening bilateral lower lobe opacities, right greater than left with new right sided pleural effusion and small left pleural effusion. Likely atelectasis given the clinical picture as the patient is improved overall. Unable to get sputum since the patient is not having a cough. Check S. pneumo and Legionella UAT. --> negative. Discontiune Levaquin. Continue Zosyn 3.375 grams IV Q8H. Day 8 Continue Vancomycin IV. Pharmacy to dose. Goal trough ~15. Day 8 Duration of treatment depends on the clinical picture, but likely a total of 10 days. Can switch to PO antibiotics when ready for discharge, recommend doxycycline 100mg PO BID and Levaquin 750mg PO daily. Monitor renal function and for drug toxicity and dose-adjust antibiotics. (2) Dehydration Current Visit: No Status: Resolved Likely secondary to poor PO intake. Appears improved. Management per the primary team. (3) Malignant melanoma of right foot Current Visit: No Status: Chronic Diagnosed in 2015 status post excision x 2, currently on immunotherapy per [facility]. Stable per patient's report. States last immunotherapy in early February. (4) Generalized weakness Current Visit: Yes Status: Acute Likely multifactorial: deconditioning, dehydration, immunotherapy. PT/OT to evaluate and treat. (5) Thrush Current Visit: No Status: Acute Appears resolved. Continue Nystatin PO. (6) Lymph node enlargement Current Visit: Yes Status: Chronic Secondary to malignant melanoma, but previous biopsies have been negative for mets. Per the patient, her oncologist thinks this is mets, but does not want to re- biopsy for fear it will spread. (7) Vasovagal syncope Current Visit: No Status: Resolved (8) Diabetes Current Visit: Yes Status: Chronic Recommend aggressive glucose monitoring and control. Management per the primary team. Qualifiers: Diabetes mellitus type: type 2 Diabetes mellitus salvage determiner insulin use: with salvage determiner use Diabetes mellitus complication status: with unspecified complications Qualified Code(s): E11.8 - Type 2 diabetes mellitus with unspecified complications; Z79.4 - termination clerk (current) use of insulin (9) HLD (hyperlipidemia) Current Visit: Yes Status: Chronic Qualifiers: Hyperlipidemia type: pure hypercholesterolemia Qualified Code(s): E78.00 - Pure hypercholesterolemia, unspecified; E78.0 - Pure hypercholesterolemia (10) HTN (hypertension) Current Visit: Yes Status: Chronic Qualifiers: Hypertension type: essential hypertension Qualified Code(s): I10 - Essential (primary) hypertension (11) GERD (gastroesophageal reflux disease) Current Visit: Yes Status: Chronic Qualifiers: Esophagitis presence: without esophagitis Qualified Code(s): K21.9 - Gastro -esophageal reflux disease without esophagitis (12) Anorexia Current Visit: Yes Status: Acute The patient reports very little PO intake for the past week. States nothing tastes good to her. Per nursing, patient non-compliant with nutritional supplements. Improved per patient report. (13) Pleural effusion Current Visit: Yes Status: Acute Etiology unclear: malignancy vs. third-spacing vs. other. Unlikely infectious based on clinical picture. CT of the chest showed large bilateral pleural effusions with associated dependent airspace disease, likely pulmonary edema. Pulmonology consulted. Recommend IR consult for thoracentesis. Status post left thoracentesis this morning per IR. Approximately 800ml drained. Specimen sent for culture, cell count with diff, protein, and LDH. Planning to perform right thoracentesis tomorrow. - Subjective Interval history: Patient seen and examined. No acute events noted overnight. Patient states she feels better today. Denies nausea or vomiting. States she is unsure if her breathing is better today. Reports some nausea this morning after coughing, but no vomiting. Denies abdominal pain or urinary complaints. States she has not had a BM today. Denies oral thrush or new skin lesions. Status post thoracentesis this morning. Infect Dis PN-Objective Data - Labs CBC & Chem 7: 03/27/18 05:35 03/27/18 05:35 Labs: Laboratory Results - last 24 hr 03/25/18 03/25/18 03/25/18 07:30 11:05 15:14 WBC RBC Hgb Hct MCV MCH MCHC RDW Plt Count MPV Immature Gran % Seg Neutrophils % Lymphocytes % Monocytes % Eosinophils % Basophils % Neutrophils # Lymphocytes # Monocytes # Eosinophils # Basophils # PT INR Sodium Potassium Chloride Carbon Dioxide BUN Creatinine Est GFR ( Amer) Est GFR (Non-Af Amer) BUN/Creatinine Ratio Glucose POC Glucose 90 116 H 140 H Calculated Osmolality Calcium Total Bilirubin AST ALT Alkaline Phosphatase Lactate Dehydrogenase B-Natriuretic Peptide Serum Total Protein Albumin Globulin Albumin/Globulin Ratio Pleural Fluid Volume Pleural Appearance Pleural RBC Pleural Tot Nuc Cell Specimen Rejected 03/25/18 03/25/18 03/25/18 16:27 16:27 20:34 WBC RBC Hgb Hct MCV MCH MCHC RDW Plt Count MPV Immature Gran % Seg Neutrophils % Lymphocytes % Monocytes % Eosinophils % Basophils % Neutrophils # Lymphocytes # Monocytes # Eosinophils # Basophils # PT 12.5 H INR 1.1 Sodium Potassium Chloride Carbon Dioxide BUN Creatinine Est GFR ( Amer) Est GFR (Non-Af Amer) BUN/Creatinine Ratio Glucose POC Glucose 157 H Calculated Osmolality Calcium Total Bilirubin AST ALT Alkaline Phosphatase Lactate Dehydrogenase B-Natriuretic Peptide 104 H Serum Total Protein Albumin Globulin Albumin/Globulin Ratio Pleural Fluid Volume Pleural Appearance Pleural RBC Pleural Tot Nuc Cell Specimen Rejected 03/26/18 03/26/18 03/26/18 04:18 05:32 05:53 WBC 7.1 RBC 3.80 L Hgb 12.1 D Hct 37.0 MCV 97.4 MCH 31.8 MCHC 32.7 RDW 15.1 H Plt Count 138 L MPV 9.9 Immature Gran % 0.6 Seg Neutrophils % 74.7 Lymphocytes % 14.3 Monocytes % 8.8 Eosinophils % 1.0 Basophils % 0.6 Neutrophils # 5.3 Lymphocytes # 1.0 Monocytes # 0.6 Eosinophils # 0.1 Basophils # 0.0 PT INR Sodium 137 Potassium 3.7 Chloride 108 H Carbon Dioxide 21 L BUN 17 Creatinine 0.88 Est GFR ( Amer) > 60 Est GFR (Non-Af Amer) > 60 BUN/Creatinine Ratio 19 Glucose 116 H POC Glucose Calculated Osmolality 287 Calcium 7.9 L Total Bilirubin 0.7 AST 12 L ALT 4 L Alkaline Phosphatase 48 Lactate Dehydrogenase 138 L B-Natriuretic Peptide Serum Total Protein 4.8 L Albumin 2.4 L Globulin 2.4 Albumin/Globulin Ratio 1.0 L Pleural Fluid Volume Pleural Appearance Pleural RBC Pleural Tot Nuc Cell Specimen Rejected Clotted 03/26/18 10:00 WBC RBC Hgb Hct MCV MCH MCHC RDW Plt Count MPV Immature Gran % Seg Neutrophils % Lymphocytes % Monocytes % Eosinophils % Basophils % Neutrophils # Lymphocytes # Monocytes # Eosinophils # Basophils # PT INR Sodium Potassium Chloride Carbon Dioxide BUN Creatinine Est GFR ( Amer) Est GFR (Non-Af Amer) BUN/Creatinine Ratio Glucose POC Glucose Calculated Osmolality Calcium Total Bilirubin AST ALT Alkaline Phosphatase Lactate Dehydrogenase B-Natriuretic Peptide Serum Total Protein Albumin Globulin Albumin/Globulin Ratio Pleural Fluid Volume 850.0 Pleural Appearance Clear Pleural RBC < 0.002 Pleural Tot Nuc Cell 18 Specimen Rejected Cultures: Cultures 03/21/18 11:20 Legionella Antigen - Final Urine,Clean Catch Streptococcus pneumoniae Antigen (M - Final Serology 03/26/18 03/24/18 03/22/18 Range/Units 10:00 20:15 15:12 Urine Color Yellow Dark Yellow (Yellow) Urine Clarity Clear Clear (Clear) Urine pH 6.0 5.5 (5.0-8.0) pH Units Ur Specific [place] 1.009 L > 1.030 H (1.010-1.025) Urine Protein Negative 100 H (Neg-Trace) mg/dL Urine Glucose (UA) Normal Normal (Normal) mg/dL Urine Ketones Negative 15 H (Negative) mg/dL Urine Blood Negative Negative (Negative) Urine Nitrite Negative Negative (Negative) Urine Bilirubin Negative Negative (Negative) Urine Urobilinogen Normal Normal (Normal) mg/dL Ur Leukocyte Esterase Negative Negative (Negative) Urine Microscopic RBC 5-15 H (0-3) per hpf Urine Microscopic WBC 5-15 H (0-3) per hpf Ur Squamous Epith Cells Many H (None-Few) per lpf Urine Bacteria None Seen (None-Few) per hpf Hyaline Casts None Seen (None-Few) per lpf Ur Culture Indicated? NO NO (NO) Pleural Fluid Volume 850.0 mL Pleural Appearance Clear (Clear) Pleural pH Pending Pleural RBC < 0.002 (0.000 - 0.002) M/mcL Pleural Tot Nuc Cell 18 (0-1000) TNC/mcL Pleural Neutrophils Pending Pleural Band Neuts Pending Pleural Eosinophils Pending Pleural Basophils Pending Pleural Lymphocytes % Pending Pleural Monocytes % Pending Pleural Other Cells % Pending - Impressions Impressions Chest X-Ray 03/25/18 12:45 IMPRESSION: There is mild improvement in the left effusion however the right effusion remains moderate in size. Redemonstration of right lower lobe pneumonia and lower lobe atelectatic changes. D/ / 03/25/2018 15:06:43 Claudia Chavez MD / miguel angel Interpreting Provider: Claudia Chavez MD Chest CT 03/25/18 18:00 IMPRESSION: Large pleural effusions with associated dependent airspace disease. Pulmonary edema is favored. Subcutaneous edema diffusely suggesting third-spacing of fluid. Bilateral breast calcifications. Left axillary surgical clips Gallstones Ascites Right renal calculus Subtle asymmetric enlargement left adrenal gland. This is stable compared to an old exam D/ / Timmy Raymond / Timmy Raymond Interpreting Provider: Timmy Raymond Thoracentesis 03/26/18 07:19 IMPRESSION: 1. Ultrasound-guided right thoracentesis as discussed above. Plan is to perform left thoracentesis tomorrow. D/ / Romario Patrick MD / Romario Patrick MD Interpreting Provider: Romario Patrick MD Chest X-Ray 03/26/18 10:28 IMPRESSION: Status post thoracentesis without pneumothorax. D/ / 03/26/2018 11:04:00 Odell Causey MD / drake Interpreting Provider: Odell Causey MD Exam - Constitutional Vitals: Temp Pulse Resp BP Pulse Ox 98.1 F 108 17 106/63 97 03/26/18 10:55 03/26/18 10:55 03/26/18 10:55 03/26/18 10:55 03/26/18 10:55 General appearance: average body habitus, cooperative, no acute distress - Head Head exam: Present: atraumatic, normal inspection, normocephalic - Eye Eye exam: Present: EOMI, normal appearance, PERRL Pupils: Present: normal accommodation - ENT ENT exam: Present: mucous membranes moist - Neck Neck exam: Present: normal inspection - Respiratory Respiratory exam: Present: CTAB. Absent: rales, respiratory distress, rhonchi, wheezes - Cardiovascular Cardiovascular exam: Present: RRR, +S1, +S2 - GI/Abdominal GI/Abdominal exam: Present: normal bowel sounds, soft. Absent: distended, tenderness - Extremities Exam Extremities exam: Present: normal inspection, tenderness (right groin). Absent : joint swelling, pedal edema Additional comments: Right groin palpable mass with erythema and tenderness, remains unchanged per patient. - Neurological Exam Neurological exam: Present: alert, oriented X3, no focal deficits - Psychiatric Psychiatric exam: Present: normal affect, normal mood - Skin Skin exam: Present: dry, intact, normal color, warm Consult Discharge Plan - Plan Instructions: Pneumonia (DC) Additional Instructions: Follow-up appointments: If there is not an appointment listed below, please call your physician and schedule a follow-up appointment. If you have congestive heart failure and your symptoms return, make an appointment with your physician. Medication List: Carry an up to date list of medications you are taking at all time. We have given you an updated medication list including any new medications that you have been prescribed. Please provide that list to your primary provider Symptoms: If your condition changes or you experience any of the following symptoms, notify your physician immediately: Unusual or worsening pain, fever, persistent nausea and vomiting, bleeding, increase in swelling (especially in your legs), sudden weight gain, extreme dizziness, chest pain, increased drainage or redness from a wound or incision. Go to the emergency department if you experience a problem with breathing. Weights: If you have a history of swelling or shortness of breath, weigh yourself daily and notify your physician if you have a weight gain of two or more pounds in one day or 5 or more pounds in a week. If you experience any of the warning signs for stroke: Sudden numbness or weakness of the face, arm or leg; especially on one side of the body, sudden confusion, trouble speaking or understanding, sudden trouble seeing in one or both eyes, sudden trouble walking, dizziness, loss of balance or coordination, sudden sever headache with no cause; Call 911 or go to the emergency room. Stroke is a medical emergency. Some risk factors for stroke: Age, cigarette smoking, diabetes, excessive alcohol consumption, family history , high blood pressure, overweight, physical inactivity, prior stroke, heart attack, diagnosis of carotid artery stenosis or other artery disease. If you smoke, STOP: Smoking or tobacco use significantly increases your risk of heart and lung disease. Your chance of disease greatly increases if you continue to smoke. For more information, call the [place] tobacco quit line for smoking cessation NOW ( ) Prescriptions: Doxycycline 100 mg PO BID #4 capsule levoFLOXacin [Levaquin] 750 mg PO DAILY #2 tablet - Attending Attestation I examined this patient and my medical decision-making was reviewed with Ruma Willson CNP. I agree with the documented findings, disposition and treatment plan as described except to the extent set forth below.
[2018-03-26 14:07] LABS: Glucose,Pleural Fluid 129 mg/dL (No Ref Range); LDH,Pleural Fluid 36 Units/L (No Ref Range); Total Protein,Pleural Fluid < 3.0 g/dL (No Ref Range)
--- NOTE | 2018-03-26 17:03 | Internal Med Progress Note ---
Hospitalist Progress Note - Encounter Date of Encounter: 03/26/18 Time of Encounter: 10:30 - Subjective Interval History: Pt was seen and assessed at bedside at 1030. She is alert, awake, in no distress , appears to be improved and better today. Denies nausea, vomiting, diarrhea, abdominal pain, headache, vision changes, or dizziness. She denies cough, fever , chills. Pt will have thoracentesis tomorrow, could discharge Saturday - Exam Vitals: Temp Pulse Resp BP Pulse Ox 97.3 F L 82 17 132/84 96 03/26/18 16:01 03/26/18 16:01 03/26/18 16:01 03/26/18 16:01 03/26/18 16:01 Exam: General: Pt resting quietly on bed, no distress. Skin: pwd, no rashes, lesions, redness Neurological: Pt is alert and awake, oriented x 3, Speech is clear, PERRLA, EOMI , no nystagmus, no pronator drift. strength equal x 4 extremities HEENT: mucous mumbranes moist, no conjuctival pallor Neck: supple, no tracheal deviation, no lymphadenopathy, tenderness, no thyromegaly Heart: S1S2 heard without gallops, clicks, murmurs, no bradycardia or tachycardia, pt has no peripheral edema, pedal and radial pulses palpable bilaterally. Lungs: clear throughout with wheezing and posterior lung landin, no rales, or ronchi, respirations are unlabored Abdomen: soft and non tender with bowel sound present, no hepatomegaly. Psych: Normal affect with good eye contact - Assessment and Plan (1) Healthcare-associated pneumonia Current Visit: Yes Status: Acute Assessment and Plan: No leukocytosis, fever, chills, tachycardia, or hypotension. Repeat CXR for PNA resolution. CXR shows worsening bibasilar airspace the pacing bilateral pleural effusions over 2 days. DDx was worsening pna vs CHF. Echo showed circumferential small and moderate pericardial effusion. Pt appears to be euvolemic and does not appear to be in fluid overload. Pt. on IV abx for 6 days (levaquin, Zosyn, and vancomycin) Immunocompromised with metastatic melanoma and right breast cancer Patient with pleural effusions bilaterally, patient had thoracentesis today, will have second tomorrow. Per pulmonology known, and differentials include third spacing due to hypoalbuminemia infectious disease is less likely. She will be switched to by mouth antibiotics for discharge. Ambulate 3 times a day, up in chair 3 times a day Continue incentive spirometry Pt is not on 02, may use prn to maintain satis > 92% (2) UTI (urinary tract infection) Current Visit: Yes Status: Acute Assessment and Plan: Resolved. Urine culture negative. (3) Cancer of right female breast Current Visit: Yes Status: Chronic Assessment and Plan: Cancer of right breast--estrogen positive Being treated at the [facility] Follow outpatient after discharge. (4) Diabetes Current Visit: Yes Status: Chronic Assessment and Plan: A1c is 4.6. Chronic well-controlled Continue home insulin dosing, reevaluate with primary care for continued need. Sliding scale and hypoglycemic protocol in place. (5) HLD (hyperlipidemia) Current Visit: Yes Status: Chronic Assessment and Plan: Chronic. Continue home medications (6) HTN (hypertension) Current Visit: Yes Status: Chronic Assessment and Plan: BP stable, well controlled. continue home meds. (7) Generalized weakness Current Visit: Yes Status: Acute Assessment and Plan: Improving with patient PT. In the setting of healthcare acquired pneumonia Pt to be discharged to [facility], continue PT/OT Increase oral fluid and food intake w/nutritional monitoring (8) GERD (gastroesophageal reflux disease) Current Visit: Yes Status: Chronic Assessment and Plan: Chronic, continue antiemetic prn. Pt takes no home medications. (9) Lymph node enlargement Current Visit: Yes Status: Chronic Assessment and Plan: Currently being treated with immunotherapy at the [facility] Recent scans at [facility] negative for abdominal organ, or lung metastasis. Continue to f/u as OP (10) Hypocalcemia Current Visit: Yes Status: Acute Assessment and Plan: Improving Continues to remain hypocalcemic. Continue po supplementation (11) Dehydration Current Visit: Yes Status: Resolved Assessment and Plan: Continue PO fluids and encourage oral intake DC IV fluids to CXR showing bibasilar pneumonia versus pulmonary edema either from volume overload or CHF - Time Spent with Patient Total time spent is greater than 50% in coordination of care (as documented) at patient's floor/unit and/or counseling patient: less than 15 minutes Plan of Care Discussed with: patient Internal Medicine: Result - Labs CBC & Chem 7: 03/26/18 05:53 03/26/18 04:18 Labs: Short CBC 03/26/18 Range/Units 05:53 WBC 7.1 (4.3-11.1) K/mcL Hgb 12.1 D (11.5-15.4) g/dL Hct 37.0 (35.3-44.9) % Plt Count 138 L (140-400) K/mcL Neutrophils # 5.3 (1.6-8.9) K/mcL BMP 03/26/18 04:18 Sodium 137 Potassium 3.7 Chloride 108 H Carbon Dioxide 21 L BUN 17 Creatinine 0.88 Glucose 116 H Calcium 7.9 L Liver Function 03/26/18 Range/Units 04:18 Total Bilirubin 0.7 (0.3-1.0) mg/dL AST 12 L (13-39) Units/L ALT 4 L (7-52) Units/L Alkaline Phosphatase 48 (34-104) Units/L Albumin 2.4 L (3.5-5.7) g/dL - ABG Interpretation ABG results: PT/INR, D-dimer PT 12.5 Seconds (9.4-12.1) H 03/25/18 16:27 - Impressions Impressions Chest CT 03/25/18 18:00 IMPRESSION: Large pleural effusions with associated dependent airspace disease. Pulmonary edema is favored. Subcutaneous edema diffusely suggesting third-spacing of fluid. Bilateral breast calcifications. Left axillary surgical clips Gallstones Ascites Right renal calculus Subtle asymmetric enlargement left adrenal gland. This is stable compared to an old exam D/ / Timmy Raymond / Timmy Raymond Interpreting Provider: Timmy Raymond Thoracentesis 03/26/18 07:19 IMPRESSION: 1. Ultrasound-guided right thoracentesis as discussed above. Plan is to perform left thoracentesis tomorrow. D/ / Romario Patrick MD / Romario Patrick MD Interpreting Provider: Romario Patrick MD Chest X-Ray 03/26/18 10:28 IMPRESSION: Status post thoracentesis without pneumothorax. D/ / 03/26/2018 11:04:00 Odell Causey MD / drake Interpreting Provider: Odell Causey MD Consult Discharge Plan - Plan Instructions: Pneumonia (DC) Additional Instructions: Follow-up appointments: If there is not an appointment listed below, please call your physician and schedule a follow-up appointment. If you have congestive heart failure and your symptoms return, make an appointment with your physician. Medication List: Carry an up to date list of medications you are taking at all time. We have given you an updated medication list including any new medications that you have been prescribed. Please provide that list to your primary provider Symptoms: If your condition changes or you experience any of the following symptoms, notify your physician immediately: Unusual or worsening pain, fever, persistent nausea and vomiting, bleeding, increase in swelling (especially in your legs), sudden weight gain, extreme dizziness, chest pain, increased drainage or redness from a wound or incision. Go to the emergency department if you experience a problem with breathing. Weights: If you have a history of swelling or shortness of breath, weigh yourself daily and notify your physician if you have a weight gain of two or more pounds in one day or 5 or more pounds in a week. If you experience any of the warning signs for stroke: Sudden numbness or weakness of the face, arm or leg; especially on one side of the body, sudden confusion, trouble speaking or understanding, sudden trouble seeing in one or both eyes, sudden trouble walking, dizziness, loss of balance or coordination, sudden sever headache with no cause; Call 911 or go to the emergency room. Stroke is a medical emergency. Some risk factors for stroke: Age, cigarette smoking, diabetes, excessive alcohol consumption, family history , high blood pressure, overweight, physical inactivity, prior stroke, heart attack, diagnosis of carotid artery stenosis or other artery disease. If you smoke, STOP: Smoking or tobacco use significantly increases your risk of heart and lung disease. Your chance of disease greatly increases if you continue to smoke. For more information, call the [place] tobacco quit line for smoking cessation NOW ( ) Referrals: Rojas Campoverde MD [Primary Care Provider] - 04/04/18 10:00 am Prescriptions: Doxycycline 100 mg PO BID #4 capsule levoFLOXacin [Levaquin] 750 mg PO DAILY #2 tablet (2) UTI (urinary tract infection) Qualifiers: Urinary tract infection type: acute cystitis Hematuria presence: without hematuria Qualified Code(s): N30.00 - Acute cystitis without hematuria (3) Cancer of right female breast Qualifiers: Breast location: unspecified site of breast Estrogen receptor status: unspecified Qualified Code(s): C50.911 - Malignant neoplasm of unspecified site of right female breast (4) Diabetes Qualifiers: Diabetes mellitus type: type 2 Diabetes mellitus terminal make up operator insulin use: with terminal make up operator use Diabetes mellitus complication status: with unspecified complications Qualified Code(s): E11.8 - Type 2 diabetes mellitus with unspecified complications; Z79.4 - MCC (current) use of insulin (5) HLD (hyperlipidemia) Qualifiers: Hyperlipidemia type: pure hypercholesterolemia Qualified Code(s): E78.00 - Pure hypercholesterolemia, unspecified; E78.0 - Pure hypercholesterolemia (6) HTN (hypertension) Qualifiers: Hypertension type: essential hypertension Qualified Code(s): I10 - Essential (primary) hypertension (8) GERD (gastroesophageal reflux disease) Qualifiers: Esophagitis presence: without esophagitis Qualified Code(s): K21.9 - Gastro- esophageal reflux disease without esophagitis
[2018-03-26] MEDS: Insulin DETEMIR 100 UNIT/ML X5UNITS SQ SCH (20:20)
[2018-03-27] MEDS: Piperacillin/Tazobactam 3.375 GM in 0.9 % Sodium Chloride Mini Bag 100 ML IVPB SCH (05:46)
[2018-03-27] MEDS: *HR* Heparin 5,000 UNIT/ML VIAL SQ SCH (05:47)
[2018-03-27 05:52] LABS: Basophils % 0.6 %; Eosinophils # 0.1 K/mcL (0.0-0.6); Eosinophils % 0.9 %; Hematocrit 35.5 % (35.3-44.9); Immature Granulocytes % 0.6 % (0-4); Lymphocytes # 1.1 K/mcL (0.6-4.6); Lymphocytes % 16.2 %; Mean Corpuscular HGB Conc 33.8 g/dL (31.6-35.5); Mean Corpuscular Hemoglobin 32.3 pg (28.0-33.3); Mean Corpuscular Volume 95.7 fL (83.0-100.0); Mean Platelet Volume 9.9 fL (9.4-12.4); Monocytes # 0.6 K/mcL (0.0-1.3); Monocytes % 8.8 %; Platelet Count 126 K/mcL (140-400); Red Blood Count 3.71 M/mcL (3.82-4.97); Red Cell Distribution Width 14.8 % (11.5-14.5); Segmented Neutrophils % 72.9 %
[2018-03-27 07:20] LABS: BUN/Creatinine Ratio 19 (6-26); Blood Urea Nitrogen 20 mg/dL (8-23); Calcium 7.8 mg/dL (8.6-10.3); Carbon Dioxide 20 mEq/L (23-29); Chloride 110 mEq/L (98-107); Glucose 113 mg/dL (70-105); Osmolality,Calculated 289 (280-300); Potassium 3.6 mEq/L (3.5-5.1); Sodium 138 mEq/L (136-145); eGFR For Non-African Americans 51 (> 60)
--- NOTE | 2018-03-27 07:55 | Pulmonology Progress Note ---
<JosseArun barillas Janet - Last Filed: 03/27/18 07:59> Date of Encounter: 03/27/18 Time of Encounter: 07:54 Assessment and Plan (1) Pleural effusion Current Visit: Yes Status: Acute Status post left thoracentesis. Fluid analysis reveals transitive effusion, likely third spacing in the setting of hypoalbuminemia. No indication of infection. Cytology is pending however this appears to be unlikely related to her underlying malignancy. We will continue to follow up on cytology results. Plan is for right-sided thoracentesis today which will also be sent for cytology. Patient is stable for discharge from a Pulmonary stand-point, will sign off at this time, please call with any questions. (2) Healthcare-associated pneumonia Current Visit: Yes Status: Acute No evidence of parenchymal disease on CT. Cytology/culture pending as discussed above. Further management per primary/infectious disease. (3) Metastatic melanoma Current Visit: Yes Status: Chronic (4) Breast cancer Current Visit: Yes Status: Chronic Qualifiers: Breast location: unspecified site of breast Estrogen receptor status: positive Patient sex: female Laterality: unspecified laterality Qualified Code(s): C50.919 - Malignant neoplasm of unspecified site of unspecified female breast; Z17.0 - Estrogen receptor positive status [ER+] Subjective Principal diagnosis: Pleural effusion Interval history: Patient seen and examined at bedside. Patient reports that she continues to feel weak however she participated in physical therapy yesterday and feels this helped. Patient reports her shortness of breath is improved after thoracentesis yesterday. She has fever, chills, cough, congestion, chest pain Objective PUL Vital signs: Last Vital Signs Temp 98.3 F 03/27/18 07:23 Pulse 75 03/27/18 07:23 Resp 17 03/27/18 07:23 BP 174/74 03/27/18 07:23 Pulse Ox 100 03/27/18 07:23 General appearance: no acute distress ENT: oropharynx moist Effort: normal Auscultation: left: diminished breath sounds, right: clear Cardiovascular: regular rate and rhythm Gastrointestinal: normoactive bowel sounds, soft, non-tender Extremities: edema (2+ LE b/l) normal mental status, non-focal exam Results - Laboratory Findings CBC and BMP: 03/27/18 05:35 03/27/18 05:35 PT/INR, D-dimer PT 12.5 Seconds (9.4-12.1) H 03/25/18 16:27 Abnormal lab findings: Abnormal lab results RBC 3.71 M/mcL (3.82-4.97) L 03/27/18 05:35 RDW 14.8 % (11.5-14.5) H 03/27/18 05:35 Plt Count 126 K/mcL (140-400) L 03/27/18 05:35 PT 12.5 Seconds (9.4-12.1) H 03/25/18 16:27 Chloride 110 mEq/L (98-107) H 03/27/18 05:35 Carbon Dioxide 20 mEq/L (23-29) L 03/27/18 05:35 Est GFR (Non-Af Amer) 51 (> 60) L 03/27/18 05:35 Glucose 113 mg/dL (70-105) H 03/27/18 05:35 POC Glucose 138 mg/dL (70-99) H 03/26/18 20:19 Calcium 7.8 mg/dL (8.6-10.3) L 03/27/18 05:35 AST 12 Units/L (13-39) L 03/26/18 04:18 ALT 4 Units/L (7-52) L 03/26/18 04:18 Lactate Dehydrogenase 138 Units/L (140-271) L 03/26/18 04:18 Creatine Kinase 20 Units/L (30-223) L 03/19/18 06:15 B-Natriuretic Peptide 104 pg/mL (Less than 100) H 03/25/18 16:27 Serum Total Protein 4.8 g/dL (6.4-8.9) L 03/26/18 04:18 Albumin 2.4 g/dL (3.5-5.7) L 03/26/18 04:18 Albumin/Globulin Ratio 1.0 (1.1-2.2) L 03/26/18 04:18 Ur Specific Addis 1.009 (1.010-1.025) L 03/24/18 20:15 Urine Microscopic RBC 5-15 per hpf (0-3) H 03/22/18 15:12 Urine Microscopic WBC 5-15 per hpf (0-3) H 03/22/18 15:12 Ur Squamous Epith Cells Many per lpf (None-Few) H 03/22/18 15:12 Vancomycin Trough 17 mcg/mL (5-10) H 03/25/18 06:30 - Microbiology Findings Microbiology Findings: Microbiology, Last 48 Hours 03/26/18 10:00 Gram Stain - Final Pleural Fluid - Clinical Findings Intake & Output: Intake & Output 03/26/18 03/26/18 03/27/18 15:59 23:59 07:59 Intake Total 100 / 100 320 / 320 100 / 100 Output Total 500 / 500 250 / 250 Balance 100 / 100 -180 / -180 -150 / -150 Weight 61 kg Consult Discharge Plan - Plan Instructions: Pneumonia (DC) Additional Instructions: Follow-up appointments: If there is not an appointment listed below, please call your physician and schedule a follow-up appointment. If you have congestive heart failure and your symptoms return, make an appointment with your physician. Medication List: Carry an up to date list of medications you are taking at all time. We have given you an updated medication list including any new medications that you have been prescribed. Please provide that list to your primary provider Symptoms: If your condition changes or you experience any of the following symptoms, notify your physician immediately: Unusual or worsening pain, fever, persistent nausea and vomiting, bleeding, increase in swelling (especially in your legs), sudden weight gain, extreme dizziness, chest pain, increased drainage or redness from a wound or incision. Go to the emergency department if you experience a problem with breathing. Weights: If you have a history of swelling or shortness of breath, weigh yourself daily and notify your physician if you have a weight gain of two or more pounds in one day or 5 or more pounds in a week. If you experience any of the warning signs for stroke: Sudden numbness or weakness of the face, arm or leg; especially on one side of the body, sudden confusion, trouble speaking or understanding, sudden trouble seeing in one or both eyes, sudden trouble walking, dizziness, loss of balance or coordination, sudden sever headache with no cause; Call 911 or go to the emergency room. Stroke is a medical emergency. Some risk factors for stroke: Age, cigarette smoking, diabetes, excessive alcohol consumption, family history , high blood pressure, overweight, physical inactivity, prior stroke, heart attack, diagnosis of carotid artery stenosis or other artery disease. If you smoke, STOP: Smoking or tobacco use significantly increases your risk of heart and lung disease. Your chance of disease greatly increases if you continue to smoke. For more information, call the [place] tobacco quit line for smoking cessation 7-917- QUIT-NOW ( ) Referrals: Rojas Campoverde MD [Primary Care Provider] - 04/04/18 10:00 am Prescriptions: Doxycycline 100 mg PO BID #4 capsule levoFLOXacin [Levaquin] 750 mg PO DAILY #2 tablet <Hung Pat W - Last Filed: 03/27/18 09:18> Date of Encounter: 03/27/18 Objective PUL Vital signs: Last Vital Signs Temp 98.3 F 03/27/18 07:23 Pulse 75 03/27/18 07:23 Resp 17 03/27/18 07:23 BP 174/74 03/27/18 07:23 Pulse Ox 100 03/27/18 07:23 Results - Laboratory Findings CBC and BMP: 03/27/18 05:35 03/27/18 05:35 PT/INR, D-dimer PT 12.5 Seconds (9.4-12.1) H 03/25/18 16:27 Abnormal lab findings: Abnormal lab results RBC 3.71 M/mcL (3.82-4.97) L 03/27/18 05:35 RDW 14.8 % (11.5-14.5) H 03/27/18 05:35 Plt Count 126 K/mcL (140-400) L 03/27/18 05:35 PT 12.5 Seconds (9.4-12.1) H 03/25/18 16:27 Chloride 110 mEq/L (98-107) H 03/27/18 05:35 Carbon Dioxide 20 mEq/L (23-29) L 03/27/18 05:35 Est GFR (Non-Af Amer) 51 (> 60) L 03/27/18 05:35 Glucose 113 mg/dL (70-105) H 03/27/18 05:35 POC Glucose 138 mg/dL (70-99) H 03/26/18 20:19 Calcium 7.8 mg/dL (8.6-10.3) L 03/27/18 05:35 AST 12 Units/L (13-39) L 03/26/18 04:18 ALT 4 Units/L (7-52) L 03/26/18 04:18 Lactate Dehydrogenase 138 Units/L (140-271) L 03/26/18 04:18 Creatine Kinase 20 Units/L (30-223) L 03/19/18 06:15 B-Natriuretic Peptide 104 pg/mL (Less than 100) H 03/25/18 16:27 Serum Total Protein 4.8 g/dL (6.4-8.9) L 03/26/18 04:18 Albumin 2.4 g/dL (3.5-5.7) L 03/26/18 04:18 Albumin/Globulin Ratio 1.0 (1.1-2.2) L 03/26/18 04:18 Ur Specific Addis 1.009 (1.010-1.025) L 03/24/18 20:15 Urine Microscopic RBC 5-15 per hpf (0-3) H 03/22/18 15:12 Urine Microscopic WBC 5-15 per hpf (0-3) H 03/22/18 15:12 Ur Squamous Epith Cells Many per lpf (None-Few) H 03/22/18 15:12 Vancomycin Trough 17 mcg/mL (5-10) H 03/25/18 06:30 - Microbiology Findings Microbiology Findings: Microbiology, Last 48 Hours 03/26/18 10:00 Gram Stain - Final Pleural Fluid - Clinical Findings Intake & Output: Intake & Output 03/26/18 03/27/18 03/27/18 23:59 07:59 15:59 Intake Total 320 / 320 100 / 100 Output Total 500 / 500 250 / 250 Balance -180 / -180 -150 / -150 Weight 61 kg - Attending Attestation I examined this patient and my medical decision-making was reviewed with the Resident Physician. I agree with the documented findings, disposition and treatment plan as described except to the extent set forth below. We independently had [id number] contact with the patient Patient seen and examined at bedside Labs, radiology, chart personally reviewed. Impression: Transudative Pleural Effusion secondary to third spacing of fluid Recs: Repeat Thora today by IR on opposite side. F/u on cytology Pulmonary Will sign off Please call with questions.
--- NOTE | 2018-03-27 09:17 | IR Procedure Note ---
Date of procedure: 03/27/18 Consent Obtained: Verbal consent, Written consent Timeout: Correct patient and procedure verified, Correct site verified, Time out performed, Skin prep completed Local anesthetic: Lidocaine 1% Indications: Left pleural effusion Procedure Performed: Left thoracentesis Was there an certified physician assistant present: No Site/Technique: Ultrasound guided left thoracentesis performed Results/Findings: Large left pleural effusion Estimated blood loss (cc): 0 Complications: None; Tolerated procedure well Post Procedure Treatment Plan: CXR pending Specimen: Serous pleural fluid
[2018-03-27 10:43] LABS: RBC,Pleural Fluid < 0.002 M/mcL
[2018-03-27 10:46] LABS: Appearance of Pleural Fl Hazy (Clear)
[2018-03-27] MEDS: Cholecalciferol (D-3) 1,000 UNIT TABLET PO SCH (11:04)
[2018-03-27] MEDS: Anastrozole 1 MG TABLET PO SCH (11:04)
[2018-03-27] MEDS: Ascorbic Acid 500 MG TABLET PO SCH (11:04)
[2018-03-27] MEDS: Aspirin Enteric Coated 81 MG Tablet PO SCH (11:04)
[2018-03-27] MEDS: Nystatin SUSP 5 ML UD.LIQ PO SCH ×2 (11:05→12:58)
[2018-03-27] MEDS: (Biotin [Biotin] 1 MG) PO SCH (11:08)
[2018-03-27] MEDS: Insulin LISPRO 300 UNITS/3 ML VIAL SQ SCH ×2 (11:13→12:55)
[2018-03-27 11:30] LABS: Lymphocytes,Pleural Fluid 59.5 %; Monocytes,Pleural Fluid 2.7 %
[2018-03-27 12:05] LABS: Glucose,Pleural Fluid 126 mg/dL (No Ref Range); LDH,Pleural Fluid 34 Units/L (No Ref Range); Total Protein,Pleural Fluid < 3.0 g/dL (No Ref Range)
[2018-03-27 12:11] VITALS: BP 176/98
--- NOTE | 2018-03-27 12:58 | Infectious Disease Progress No ---
Date of Encounter: 03/27/18 Time of Encounter: 09:35 - Assessment and Plan (1) Healthcare-associated pneumonia Current Visit: Yes Status: Acute Location: Left lung. Causative organism: Unclear. Recently hospitalized at [facility] and [facility]. CXR showed retrocardia opacity consistent with airspace disease or pneumonia and small left pleural effusion. No SIRS criteria, but the patient's depressed immune system may hinder development of SIRS criteria. Repeat CXR showed worsening bilateral lower lobe opacities, right greater than left with new right sided pleural effusion and small left pleural effusion. Likely atelectasis given the clinical picture as the patient is improved overall. CT scan showed bilateral pleural effusions without evidence of PNA. Unable to get sputum since the patient is not having a cough. Check S. pneumo and Legionella UAT. --> negative. The patient has received 8 days of IV antibiotics. Will discontinue Vanc and Zosyn and observe since she has likely been treated adequately for pneumonia and her effusions do not appear exudative. (2) Dehydration Current Visit: No Status: Resolved Likely secondary to poor PO intake. Appears improved. Management per the primary team. (3) Malignant melanoma of right foot Current Visit: No Status: Chronic Diagnosed in 2015 status post excision x 2, currently on immunotherapy per [facility]. Stable per patient's report. States last immunotherapy in early February. (4) Generalized weakness Current Visit: Yes Status: Acute Likely multifactorial: deconditioning, dehydration, immunotherapy. PT/OT to evaluate and treat. (5) Thrush Current Visit: No Status: Resolved Appears resolved. Continue Nystatin PO. (6) Lymph node enlargement Current Visit: Yes Status: Chronic Secondary to malignant melanoma, but previous biopsies have been negative for mets. Per the patient, her oncologist thinks this is mets, but does not want to re- biopsy for fear it will spread. (7) Vasovagal syncope Current Visit: No Status: Resolved (8) Diabetes Current Visit: Yes Status: Chronic Recommend aggressive glucose monitoring and control. Management per the primary team. Qualifiers: Diabetes mellitus type: type 2 Diabetes mellitus retirement insulin use: with retirement use Diabetes mellitus complication status: with unspecified complications Qualified Code(s): E11.8 - Type 2 diabetes mellitus with unspecified complications; Z79.4 - MCFP (current) use of insulin (9) HLD (hyperlipidemia) Current Visit: Yes Status: Chronic Qualifiers: Hyperlipidemia type: pure hypercholesterolemia Qualified Code(s): E78.00 - Pure hypercholesterolemia, unspecified; E78.0 - Pure hypercholesterolemia (10) HTN (hypertension) Current Visit: Yes Status: Chronic Qualifiers: Hypertension type: essential hypertension Qualified Code(s): I10 - Essential (primary) hypertension (11) GERD (gastroesophageal reflux disease) Current Visit: Yes Status: Chronic Qualifiers: Esophagitis presence: without esophagitis Qualified Code(s): K21.9 - Gastro -esophageal reflux disease without esophagitis (12) Anorexia Current Visit: Yes Status: Acute The patient reports very little PO intake for the past week. States nothing tastes good to her. Per nursing, patient non-compliant with nutritional supplements. Improved per patient report. (13) Pleural effusion Current Visit: Yes Status: Acute Etiology unclear: malignancy vs. third-spacing vs. other. Unlikely infectious based on clinical picture. CT of the chest showed large bilateral pleural effusions with associated dependent airspace disease, likely pulmonary edema. Pulmonology consulted. Recommend IR consult for thoracentesis. Status post left thoracentesis 03/26/18. Approximately 800ml drained. Specimen sent for culture, cell count with diff, protein, and LDH and cytology. Appears transudative. Cytology and culture pending. Status post right thoracentesis this morning Approximately 1000ml fluid drained. Specimen sent for culture, cell count with diff, protein, LDH, and cytology. Appears transudative. Cytology and culture are pending. - Subjective Interval history: Patient seen and examined sitting up on the side of the bed post-thoracentesis. No acute events noted overnight. Patient states she feels better today. Denies nausea or vomiting. Denies shortness of breath of cough. Denies nausea or vomiting. Denies abdominal pain or urinary complaints. States she has not had a BM today. Denies oral thrush or new skin lesions. States she feels a little hungry and would like a BLT for breakfast. Infect Dis PN-Objective Data - Labs CBC & Chem 7: 03/27/18 05:35 03/27/18 05:35 Labs: Laboratory Results - last 24 hr 03/26/18 03/26/18 03/26/18 07:12 10:00 10:00 WBC RBC Hgb Hct MCV MCH MCHC RDW Plt Count MPV Immature Gran % Seg Neutrophils % Lymphocytes % Monocytes % Eosinophils % Basophils % Neutrophils # Lymphocytes # Monocytes # Eosinophils # Basophils # Sodium Potassium Chloride Carbon Dioxide BUN Creatinine Est GFR ( Amer) Est GFR (Non-Af Amer) BUN/Creatinine Ratio Glucose POC Glucose 96 Calculated Osmolality Calcium Pleural Fluid Volume Pleural Appearance Pleural pH 7.00 Pleural RBC Pleural Tot Nuc Cell Pleural Neutrophils 11.0 Pleural Band Neuts Test Not Performed Pleural Eosinophils Test Not Performed Pleural Basophils Test Not Performed Pleural Lymphocytes % 57.0 Pleural Monocytes % 10.0 Pleural Other Cells % 22.0 Pleural Total Protein < 3.0 Pleural LDH 36 Pleural Glucose 129 03/26/18 03/26/18 03/26/18 10:58 16:05 20:19 WBC RBC Hgb Hct MCV MCH MCHC RDW Plt Count MPV Immature Gran % Seg Neutrophils % Lymphocytes % Monocytes % Eosinophils % Basophils % Neutrophils # Lymphocytes # Monocytes # Eosinophils # Basophils # Sodium Potassium Chloride Carbon Dioxide BUN Creatinine Est GFR ( Amer) Est GFR (Non-Af Amer) BUN/Creatinine Ratio Glucose POC Glucose 107 H 136 H 138 H Calculated Osmolality Calcium Pleural Fluid Volume Pleural Appearance Pleural pH Pleural RBC Pleural Tot Nuc Cell Pleural Neutrophils Pleural Band Neuts Pleural Eosinophils Pleural Basophils Pleural Lymphocytes % Pleural Monocytes % Pleural Other Cells % Pleural Total Protein Pleural LDH Pleural Glucose 03/27/18 03/27/18 03/27/18 05:35 05:35 09:00 WBC 6.8 RBC 3.71 L Hgb 12.0 Hct 35.5 MCV 95.7 MCH 32.3 MCHC 33.8 RDW 14.8 H Plt Count 126 L MPV 9.9 Immature Gran % 0.6 Seg Neutrophils % 72.9 Lymphocytes % 16.2 Monocytes % 8.8 Eosinophils % 0.9 Basophils % 0.6 Neutrophils # 5.0 Lymphocytes # 1.1 Monocytes # 0.6 Eosinophils # 0.1 Basophils # 0.0 Sodium 138 Potassium 3.6 Chloride 110 H Carbon Dioxide 20 L BUN 20 Creatinine 1.07 Est GFR ( Amer) > 60 Est GFR (Non-Af Amer) 51 L BUN/Creatinine Ratio 19 Glucose 113 H POC Glucose Calculated Osmolality 289 Calcium 7.8 L Pleural Fluid Volume 1000.0 Pleural Appearance Hazy A Pleural pH 7.00 Pleural RBC < 0.002 Pleural Tot Nuc Cell 16 Pleural Neutrophils 16.2 Pleural Band Neuts Test Not Performed Pleural Eosinophils Test Not Performed Pleural Basophils Test Not Performed Pleural Lymphocytes % 59.5 Pleural Monocytes % 2.7 Pleural Other Cells % 21.6 Pleural Total Protein Pleural LDH Pleural Glucose 03/27/18 09:00 WBC RBC Hgb Hct MCV MCH MCHC RDW Plt Count MPV Immature Gran % Seg Neutrophils % Lymphocytes % Monocytes % Eosinophils % Basophils % Neutrophils # Lymphocytes # Monocytes # Eosinophils # Basophils # Sodium Potassium Chloride Carbon Dioxide BUN Creatinine Est GFR ( Amer) Est GFR (Non-Af Amer) BUN/Creatinine Ratio Glucose POC Glucose Calculated Osmolality Calcium Pleural Fluid Volume Pleural Appearance Pleural pH Pleural RBC Pleural Tot Nuc Cell Pleural Neutrophils Pleural Band Neuts Pleural Eosinophils Pleural Basophils Pleural Lymphocytes % Pleural Monocytes % Pleural Other Cells % Pleural Total Protein < 3.0 Pleural LDH 34 Pleural Glucose 126 Cultures: Cultures 03/26/18 10:00 Gram Stain - Final Pleural Fluid 03/21/18 11:20 Legionella Antigen - Final Urine,Clean Catch Streptococcus pneumoniae Antigen (M - Final Serology 03/27/18 03/27/18 03/26/18 Range/Units 09:00 09:00 10:00 Urine Color (Yellow) Urine Clarity (Clear) Urine pH (5.0-8.0) pH Units Ur Specific [place] (1.010-1.025) Urine Protein (Neg-Trace) mg/dL Urine Glucose (UA) (Normal) mg/dL Urine Ketones (Negative) mg/dL Urine Blood (Negative) Urine Nitrite (Negative) Urine Bilirubin (Negative) Urine Urobilinogen (Normal) mg/dL Ur Leukocyte Esterase (Negative) Urine Microscopic RBC (0-3) per hpf Urine Microscopic WBC (0-3) per hpf Ur Squamous Epith Cells (None-Few) per lpf Urine Bacteria (None-Few) per hpf Hyaline Casts (None-Few) per lpf Ur Culture Indicated? (NO) Pleural Fluid Volume 1000.0 mL Pleural Appearance Hazy A (Clear) Pleural pH 7.00 (No Ref Range) pH Units Pleural RBC < 0.002 (0.000 - 0.002) M/mcL Pleural Tot Nuc Cell 16 (0-1000) TNC/mcL Pleural Neutrophils 16.2 % Pleural Band Neuts Test Not Performed Pleural Eosinophils Test Not Performed Pleural Basophils Test Not Performed Pleural Lymphocytes % 59.5 % Pleural Monocytes % 2.7 % Pleural Other Cells % 21.6 % Pleural Total Protein < 3.0 < 3.0 (No Ref Range) g/dL Pleural LDH 34 36 (No Ref Range) Units/L Pleural Glucose 126 129 (No Ref Range) mg/dL 03/26/18 03/24/18 03/22/18 Range/Units 10:00 20:15 15:12 Urine Color Yellow Dark Yellow (Yellow) Urine Clarity Clear Clear (Clear) Urine pH 6.0 5.5 (5.0-8.0) pH Units Ur Specific [place] 1.009 L > 1.030 H (1.010-1.025) Urine Protein Negative 100 H (Neg-Trace) mg/dL Urine Glucose (UA) Normal Normal (Normal) mg/dL Urine Ketones Negative 15 H (Negative) mg/dL Urine Blood Negative Negative (Negative) Urine Nitrite Negative Negative (Negative) Urine Bilirubin Negative Negative (Negative) Urine Urobilinogen Normal Normal (Normal) mg/dL Ur Leukocyte Esterase Negative Negative (Negative) Urine Microscopic RBC 5-15 H (0-3) per hpf Urine Microscopic WBC 5-15 H (0-3) per hpf Ur Squamous Epith Cells Many H (None-Few) per lpf Urine Bacteria None Seen (None-Few) per hpf Hyaline Casts None Seen (None-Few) per lpf Ur Culture Indicated? NO NO (NO) Pleural Fluid Volume 850.0 mL Pleural Appearance Clear (Clear) Pleural pH 7.00 (No Ref Range) pH Units Pleural RBC < 0.002 (0.000 - 0.002) M/mcL Pleural Tot Nuc Cell 18 (0-1000) TNC/mcL Pleural Neutrophils 11.0 % Pleural Band Neuts Test Not Performed Pleural Eosinophils Test Not Performed Pleural Basophils Test Not Performed Pleural Lymphocytes % 57.0 % Pleural Monocytes % 10.0 % Pleural Other Cells % 22.0 % Pleural Total Protein (No Ref Range) g/dL Pleural LDH (No Ref Range) Units/L Pleural Glucose (No Ref Range) mg/dL - Impressions Impressions Chest X-Ray 03/26/18 10:28 IMPRESSION: Status post thoracentesis without pneumothorax. D/ / 03/26/2018 11:04:00 Odell Causey MD / drake Interpreting Provider: Odell Causey MD Chest X-Ray 03/27/18 09:17 IMPRESSION: Decrease in size of the left-sided pleural effusion following thoracentesis. No pneumothorax. D/ / López Moreno MD / López Moreno MD Interpreting Provider: López Moreno MD Exam - Constitutional Vitals: Temp Pulse Resp BP Pulse Ox 97.8 F 81 17 176/98 98 03/27/18 12:02 03/27/18 12:02 03/27/18 12:02 03/27/18 12:02 03/27/18 12:02 General appearance: average body habitus, cooperative, no acute distress - Head Head exam: Present: atraumatic, normal inspection, normocephalic - Eye Eye exam: Present: EOMI, normal appearance, PERRL Pupils: Present: normal accommodation - ENT ENT exam: Present: mucous membranes moist - Neck Neck exam: Present: normal inspection - Respiratory Respiratory exam: Present: CTAB. Absent: rales, respiratory distress, rhonchi, wheezes - Cardiovascular Cardiovascular exam: Present: RRR, +S1, +S2 - GI/Abdominal GI/Abdominal exam: Present: normal bowel sounds, soft. Absent: distended, tenderness - Extremities Exam Extremities exam: Present: normal inspection. Absent: joint swelling, pedal edema, tenderness Additional comments: Large palpable mass noted to the right groin that is tender and erythematous. Patient states this is how it always looks. - Neurological Exam Neurological exam: Present: alert, oriented X3, no focal deficits - Psychiatric Psychiatric exam: Present: normal affect, normal mood - Skin Skin exam: Present: dry, intact, normal color, warm Consult Discharge Plan - Plan Instructions: Pneumonia (DC) Additional Instructions: Follow-up appointments: If there is not an appointment listed below, please call your physician and schedule a follow-up appointment. If you have congestive heart failure and your symptoms return, make an appointment with your physician. Medication List: Carry an up to date list of medications you are taking at all time. We have given you an updated medication list including any new medications that you have been prescribed. Please provide that list to your primary provider Symptoms: If your condition changes or you experience any of the following symptoms, notify your physician immediately: Unusual or worsening pain, fever, persistent nausea and vomiting, bleeding, increase in swelling (especially in your legs), sudden weight gain, extreme dizziness, chest pain, increased drainage or redness from a wound or incision. Go to the emergency department if you experience a problem with breathing. Weights: If you have a history of swelling or shortness of breath, weigh yourself daily and notify your physician if you have a weight gain of two or more pounds in one day or 5 or more pounds in a week. If you experience any of the warning signs for stroke: Sudden numbness or weakness of the face, arm or leg; especially on one side of the body, sudden confusion, trouble speaking or understanding, sudden trouble seeing in one or both eyes, sudden trouble walking, dizziness, loss of balance or coordination, sudden sever headache with no cause; Call 911 or go to the emergency room. Stroke is a medical emergency. Some risk factors for stroke: Age, cigarette smoking, diabetes, excessive alcohol consumption, family history , high blood pressure, overweight, physical inactivity, prior stroke, heart attack, diagnosis of carotid artery stenosis or other artery disease. If you smoke, STOP: Smoking or tobacco use significantly increases your risk of heart and lung disease. Your chance of disease greatly increases if you continue to smoke. For more information, call the [place] tobacco quit line for smoking cessation QUIT-NOW ( ) Referrals: Rojas Campoverde MD [Primary Care Provider] - - Attending Attestation I examined this patient and my medical decision-making was reviewed with the errol palacios CNP. I agree with the documented findings, disposition and treatment plan as described except to the extent set forth below.
--- NOTE | 2018-03-27 15:17 | Internal Med Progress Note ---
Hospitalist Progress Note - Encounter Date of Encounter: 03/27/18 Time of Encounter: 09:25 - Subjective Interval History: Pt was seen and assessed at bedside at 0925. She is alert, awake, in no distress , appears to be improved and better today. Denies nausea, vomiting, diarrhea, abdominal pain, headache, vision changes, or dizziness. She denies cough, fever , chills. Pt had left thoracentesis today and states that she is feeling better. - Exam Vitals: Temp Pulse Resp BP Pulse Ox 97.8 F 81 17 176/98 98 03/27/18 12:02 03/27/18 12:02 03/27/18 12:02 03/27/18 12:03/27/18 12:02 Exam: General: Pt resting quietly on bed, no distress. Skin: pwd, no rashes, lesions, redness Neurological: Pt is alert and awake, oriented x 3, Speech is clear, PERRLA, EOMI , no nystagmus, no pronator drift. strength equal x 4 extremities HEENT: mucous mumbranes moist, no conjuctival pallor Neck: supple, no tracheal deviation, no lymphadenopathy, tenderness, no thyromegaly Heart: S1S2 heard without gallops, clicks, murmurs, no bradycardia or tachycardia, pt has no peripheral edema, pedal and radial pulses palpable bilaterally. Lungs: clear throughout with wheezing and posterior lung landin, no rales, or ronchi, respirations are unlabored Abdomen: soft and non tender with bowel sound present, no hepatomegaly. Psych: Normal affect with good eye contact - Assessment and Plan (1) Healthcare-associated pneumonia Current Visit: Yes Status: Acute Assessment and Plan: No leukocytosis, fever, chills, tachycardia, or hypotension. Repeat CXR for PNA resolution. CXR shows worsening bibasilar airspace the pacing bilateral pleural effusions over 2 days. DDx was worsening pna vs CHF. Echo showed circumferential small and moderate pericardial effusion. Pt appears to be euvolemic and does not appear to be in fluid overload. Antibiotics discontinued Immunocompromised with metastatic melanoma and right breast cancer Patient with pleural effusions bilaterally, bilateral thoracentesis, left today , right , will have second tomorrow. Per pulmonology known, and differentials include third spacing due to hypoalbuminemia infectious disease is less likely. Pt being discharged to [place] [facility] Continue incentive spirometry Pt is not on 02, may use prn to maintain satis > 92% Follow with cardiology for repeat echo in 7 days. (2) UTI (urinary tract infection) Current Visit: Yes Status: Acute Assessment and Plan: Resolved. Urine culture negative. (3) Cancer of right female breast Current Visit: Yes Status: Chronic Assessment and Plan: Cancer of right breast--estrogen positive Being treated at the [facility] Follow outpatient after discharge. (4) Diabetes Current Visit: Yes Status: Chronic Assessment and Plan: A1c is 4.6. Chronic well-controlled Continue home medications. Sliding scale and hypoglycemic protocol in place. (5) HLD (hyperlipidemia) Current Visit: Yes Status: Chronic Assessment and Plan: Chronic. Continue home medications (6) HTN (hypertension) Current Visit: Yes Status: Chronic Assessment and Plan: BP stable, well controlled. continue home meds. (7) Generalized weakness Current Visit: Yes Status: Acute Assessment and Plan: Improving with inpatient PT. In the setting of healthcare acquired pneumonia [facility], continue PT/OT Increase oral fluid and food intake w/nutritional monitoring (8) GERD (gastroesophageal reflux disease) Current Visit: Yes Status: Chronic Assessment and Plan: Chronic, continue antiemetic prn. Pt takes no home medications. (9) Lymph node enlargement Current Visit: Yes Status: Chronic Assessment and Plan: Currently being treated with immunotherapy at the [facility] Recent scans at [facility] negative for abdominal organ, or lung metastasis. Continue to f/u as OP Plan as above (10) Hypocalcemia Current Visit: Yes Status: Acute Assessment and Plan: Improving Continues to remain hypocalcemic. Continue po supplementation (11) Dehydration Current Visit: Yes Status: Resolved Assessment and Plan: Continue PO fluids and encourage oral intake DC IV fluids to CXR showing bibasilar pneumonia versus pulmonary edema either from volume overload or CHF - Time Spent with Patient Total time spent is greater than 50% in coordination of care (as documented) at patient's floor/unit and/or counseling patient: less than 15 minutes Plan of Care Discussed with: patient Internal Medicine: Result - Labs CBC & Chem 7: 03/27/18 05:35 03/27/18 05:35 Labs: Short CBC 03/27/18 Range/Units 05:35 WBC 6.8 (4.3-11.1) K/mcL Hgb 12.0 (11.5-15.4) g/dL Hct 35.5 (35.3-44.9) % Plt Count 126 L (140-400) K/mcL Neutrophils # 5.0 (1.6-8.9) K/mcL BMP 03/27/18 05:35 Sodium 138 Potassium 3.6 Chloride 110 H Carbon Dioxide 20 L BUN 20 Creatinine 1.07 Glucose 113 H Calcium 7.8 L - ABG Interpretation ABG results: PT/INR, D-dimer PT 12.5 Seconds (9.4-12.1) H 03/25/18 16:27 - Impressions Impressions Chest X-Ray 03/27/18 09:17 IMPRESSION: Decrease in size of the left-sided pleural effusion following thoracentesis. No pneumothorax. D/ / López Moreno MD / López Moreno MD Interpreting Provider: López Moreno MD Consult Discharge Plan - Plan Instructions: Pneumonia (DC) Additional Instructions: Follow-up appointments: If there is not an appointment listed below, please call your physician and schedule a follow-up appointment. If you have congestive heart failure and your symptoms return, make an appointment with your physician. Medication List: Carry an up to date list of medications you are taking at all time. We have given you an updated medication list including any new medications that you have been prescribed. Please provide that list to your primary provider Symptoms: If your condition changes or you experience any of the following symptoms, notify your physician immediately: Unusual or worsening pain, fever, persistent nausea and vomiting, bleeding, increase in swelling (especially in your legs), sudden weight gain, extreme dizziness, chest pain, increased drainage or redness from a wound or incision. Go to the emergency department if you experience a problem with breathing. Weights: If you have a history of swelling or shortness of breath, weigh yourself daily and notify your physician if you have a weight gain of two or more pounds in one day or 5 or more pounds in a week. If you experience any of the warning signs for stroke: Sudden numbness or weakness of the face, arm or leg; especially on one side of the body, sudden confusion, trouble speaking or understanding, sudden trouble seeing in one or both eyes, sudden trouble walking, dizziness, loss of balance or coordination, sudden sever headache with no cause; Call 911 or go to the emergency room. Stroke is a medical emergency. Some risk factors for stroke: Age, cigarette smoking, diabetes, excessive alcohol consumption, family history , high blood pressure, overweight, physical inactivity, prior stroke, heart attack, diagnosis of carotid artery stenosis or other artery disease. If you smoke, STOP: Smoking or tobacco use significantly increases your risk of heart and lung disease. Your chance of disease greatly increases if you continue to smoke. For more information, call the [place] tobacco quit line for smoking cessation QUIT-NOW ( ) Referrals: Rojas Campoverde MD [Primary Care Provider] - Prescriptions: Doxycycline 100 mg PO BID #4 capsule levoFLOXacin [Levaquin] 750 mg PO DAILY #2 tablet (2) UTI (urinary tract infection) Qualifiers: Urinary tract infection type: acute cystitis Hematuria presence: without hematuria Qualified Code(s): N30.00 - Acute cystitis without hematuria (3) Cancer of right female breast Qualifiers: Breast location: unspecified site of breast Estrogen receptor status: unspecified Qualified Code(s): C50.911 - Malignant neoplasm of unspecified site of right female breast (4) Diabetes Qualifiers: Diabetes mellitus type: type 2 Diabetes mellitus terminal gauger insulin use: with chcf use Diabetes mellitus complication status: with unspecified complications Qualified Code(s): E11.8 - Type 2 diabetes mellitus with unspecified complications; Z79.4 - snf (current) use of insulin (5) HLD (hyperlipidemia) Qualifiers: Hyperlipidemia type: pure hypercholesterolemia Qualified Code(s): E78.00 - Pure hypercholesterolemia, unspecified; E78.0 - Pure hypercholesterolemia (6) HTN (hypertension) Qualifiers: Hypertension type: essential hypertension Qualified Code(s): I10 - Essential (primary) hypertension (8) GERD (gastroesophageal reflux disease) Qualifiers: Esophagitis presence: without esophagitis Qualified Code(s): K21.9 - Gastro- esophageal reflux disease without esophagitis
--- NOTE | 2018-03-27 15:28 | Discharge Summary ---
- NOTES TO OUTPATIENT PROVIDER Notes to Outpatient Provider: pt will need follow up CT for evaluation of pleural effusions. She will also need a repeat echo in 7 days to reevaluate pericardial effusion. Orders not resulted at time of discharge: Pending orders 03/26/18 07:19 Cytology [PTH] Routine 03/26/18 10:00 Albumin,Body Fluid Routine Cholesterol,Body Fluid Routine Culture,Body Fluid [RM] Routine Gram Stain [RM] Routine Triglyceride,Body Fluid Routine 03/27/18 07:53 Cytology [PTH] Routine 03/27/18 08:30 IR thoracentesis LEFT [IR] Routine 03/27/18 09:00 Albumin,Body Fluid Routine 03/28/18 04:00 Basic Metabolic Panel AM 0400 Complete Blood Count [HEME] AM 0400 Date of Encounter: 03/27/18 Time of Encounter: 09:25 - Discharge Diagnosis (1) Healthcare-associated pneumonia Priority: Primary Status: Acute Assessment and Plan: No leukocytosis, fever, chills, tachycardia, or hypotension. Repeat CXR for PNA resolution. CXR shows worsening bibasilar airspace the pacing bilateral pleural effusions over 2 days. DDx was worsening pna vs CHF. Echo showed circumferential small and moderate pericardial effusion. Pt appears to be euvolemic and does not appear to be in fluid overload. Antibiotics discontinued Immunocompromised with metastatic melanoma and right breast cancer Patient with pleural effusions bilaterally, bilateral thoracentesis, left today , right , will have second tomorrow. Per pulmonology known, and differentials include third spacing due to hypoalbuminemia infectious disease is less likely. Pt being discharged to [place] [facility] Continue incentive spirometry Pt is not on 02, may use prn to maintain satis > 92% Follow with cardiology for repeat echo in 7 days. (2) UTI (urinary tract infection) Priority: Secondary Status: Acute Assessment and Plan: Resolved. Urine culture negative. Qualifiers: Urinary tract infection type: acute cystitis Hematuria presence: without hematuria Qualified Code(s): N30.00 - Acute cystitis without hematuria (3) Cancer of right female breast Priority: Secondary Status: Chronic Assessment and Plan: Cancer of right breast--estrogen positive Being treated at the [facility] Follow outpatient after discharge. Qualifiers: Breast location: unspecified site of breast Estrogen receptor status: unspecified Qualified Code(s): C50.911 - Malignant neoplasm of unspecified site of right female breast (4) Diabetes Priority: Secondary Status: Chronic Assessment and Plan: A1c is 4.6. Chronic well-controlled Continue home medications. Sliding scale and hypoglycemic protocol in place. 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 (5) HLD (hyperlipidemia) Priority: Secondary Status: Chronic Qualifiers: Hyperlipidemia type: pure hypercholesterolemia Qualified Code(s): E78.00 - Pure hypercholesterolemia, unspecified; E78.0 - Pure hypercholesterolemia (6) HTN (hypertension) Priority: Secondary Status: Chronic Qualifiers: Hypertension type: essential hypertension Qualified Code(s): I10 - Essential (primary) hypertension (7) Generalized weakness Priority: Secondary Status: Acute (8) GERD (gastroesophageal reflux disease) Priority: Secondary Status: Chronic Qualifiers: Esophagitis presence: without esophagitis Qualified Code(s): K21.9 - Gastro -esophageal reflux disease without esophagitis (9) Lymph node enlargement Priority: Secondary Status: Chronic (10) Hypocalcemia Priority: Secondary Status: Acute (11) Dehydration Priority: Secondary Status: Resolved Assessment and Plan: Continue PO fluids and encourage oral intake DC IV fluids to CXR showing bibasilar pneumonia versus pulmonary edema either from volume overload or CHF Hospital course: Please see assessment and plan for hospital course. Note copied from prior progress note dated same day within one hour due to creating improper document. Discharge discussed with: patient - Time Spent with Patient Total time spent providing and/or coordinating discharge services: Less than 30 minutes - Discharge Medications Home Medications: Ascorbic Acid [Vitamin C] 500 mg PO DAILY #0 05/19/15 [History] Biotin 1 mg PO DAILY 05/19/15 [History] Cholecalciferol (D-3) [Vitamin D] 5,000 unit PO DAILY #0 05/19/15 [History] Pravastatin Sodium [Pravachol] 20 mg PO HS 05/19/15 [History] Vitamin E Acid Succinate [Vitamin E] 800 units PO DAILY #0 05/19/15 [History] Aspirin Enteric Coated [Aspirin EC] 81 mg PO DAILY 01/10/16 [History] Anastrozole [Arimidex] 1 mg PO DAILY 05/08/17 [History] Carvedilol 3.125 mg PO BID 05/08/17 [History] Esomeprazole Magnesium [Nexium] 40 mg PO DAILY 05/08/17 [History] Lisinopril 2.5 mg PO DAILY 05/08/17 [History] Nitroglycerin [Nitrostat] 0.4 mg SL Q5M PRN 05/08/17 [History] Polyethylene Glycol 3350 [MiraLAX] 17 gm PO DAILY PRN 05/08/17 [History] Potassium Chloride 10 meq PO DAILY #30 tab.er.prt 03/12/18 [Rx] Ferrous Gluconate 324 mg PO DAILY 03/19/18 [History] Insulin Glargine [Lantus] 20 unit SQ HS PRN 03/19/18 [History] Nystatin [Nystatin Suspension] 100,000 units PO QID 03/19/18 [History] Ondansetron HCl [Zofran] 4 mg PO Q8HR PRN #21 tab 03/19/18 [Rx] Allergies/Adverse Reactions: 3 Allergy/AdvReac Type Severity Reaction Status Date / Time atorvastatin [From Lipitor] Allergy Muscle Pain Verified 01/10/16 18:31 codeine Allergy See Verified 03/17/15 21:29 Comments Date of admission: 03/19/18 19:18 Primary care physician: Rojas Campoverde MD Consults: 03/20/18 15:15 Consult to Infectious Diseases [CONS] Routine Consulting Provider: [facility] [place] Reason for Consult: Patient presents w/HCAP r/t recent hospitalizations. Pt. is currently immunocompromised d/t current cancer txs from melanoma. Currently being treated with IVPB vancomycin, Zosyn, and Levaquin. Call Completed: Yes 03/25/18 15:40 Consult to Pulmonology [CONS] Routine Consulting Provider: [facility] [place] Reason for Consult: Moderate right pleural effusion. Time Notified: 15:41 Call Completed: Yes 03/26/18 07:19 Consult to Interventional Radiology [CONS] Routine Consulting Provider: Radiology [facility] [place] Reason for Consult: Right pleural effusion Call Completed: No 03/27/18 08:30 Consult to Interventional Radiology [CONS] Routine Consulting Provider: Radiology [facility] Reason for Consult: Left pleural effusion Call Completed: Yes Discharging clinician: Hilaria Posada Anticipated date of discharge: 03/27/18 - Constitutional Vitals: Temp Pulse Resp BP Pulse Ox 97.8 F 81 17 176/98 98 03/27/18 12:02 03/27/18 12:02 03/27/18 12:02 03/27/18 12:02 03/27/18 12:02 General appearance: Present: cooperative, A&O X 3, pleasant, no acute distress, answers questions appropriately - Head Head exam: Present: atraumatic, normal inspection, normocephalic - Eye Eye exam: Present: PERRL, conjuntiva pink, sclera anicteric Pupils: Present: PERRL - Neck Neck exam general surgery: Present: supple, trachea midline. Absent: lymphadenopathy - Respiratory Respiratory exam: Present: CTAB. Absent: accessory muscle use, rales, rhonchi, wheezes - Cardiovascular Cardiovascular exam: Present: RRR, +S1, +S2. Absent: diastolic murmur, gallop, rubs, systolic murmur - GI/Abdominal GI/Abdominal exam: Present: normal bowel sounds, soft, no peritoneal signs. Absent: distended, tenderness - Extremities Exam Extremities exam: Present: normal capillary refill, normal inspection, warm, radial pulses palpable and symmetrical. Absent: calf tenderness, cyanotic, pedal edema, tenderness - Neurological Exam Neurological exam: Present: alert, oriented X3, no focal deficits. Absent: facial droop, speech deficit - Skin Skin exam: Present: dry, intact, normal color, warm. Absent: rash - Patient Status Disposition: Transfer Inpatient Rehab Fac Condition: Good - Discharge Instructions Instructions: Pneumonia (DC) Follow Up With: Rojas Campoverde MD [Primary Care Provider] - Additional Instructions: Follow-up appointments: If there is not an appointment listed below, please call your physician and schedule a follow-up appointment. If you have congestive heart failure and your symptoms return, make an appointment with your physician. Medication List: Carry an up to date list of medications you are taking at all time. We have given you an updated medication list including any new medications that you have been prescribed. Please provide that list to your primary provider Symptoms: If your condition changes or you experience any of the following symptoms, notify your physician immediately: Unusual or worsening pain, fever, persistent nausea and vomiting, bleeding, increase in swelling (especially in your legs), sudden weight gain, extreme dizziness, chest pain, increased drainage or redness from a wound or incision. Go to the emergency department if you experience a problem with breathing. Weights: If you have a history of swelling or shortness of breath, weigh yourself daily and notify your physician if you have a weight gain of two or more pounds in one day or 5 or more pounds in a week. If you experience any of the warning signs for stroke: Sudden numbness or weakness of the face, arm or leg; especially on one side of the body, sudden confusion, trouble speaking or understanding, sudden trouble seeing in one or both eyes, sudden trouble walking, dizziness, loss of balance or coordination, sudden sever headache with no cause; Call 911 or go to the emergency room. Stroke is a medical emergency. Some risk factors for stroke: Age, cigarette smoking, diabetes, excessive alcohol consumption, family history , high blood pressure, overweight, physical inactivity, prior stroke, heart attack, diagnosis of carotid artery stenosis or other artery disease. If you smoke, STOP: Smoking or tobacco use significantly increases your risk of heart and lung disease. Your chance of disease greatly increases if you continue to smoke. For more information, call the [place] tobacco quit line for smoking cessation QUIT-NOW ( ) - Diet and Activity Activity: as per physical therapy Diet: advance to your usual diet
[2018-03-27] MEDS ORDERED: Aminoglycoside Consult 1 EACH MC ONE (17:10)
[2018-03-28 18:19] LABS: Fluid Source for Cholesterol PLEURAL FLUID; Fluid Source for Triglycerides PLEURAL FLUID
[2018-03-28 21:16] LABS: Fluid Source for Albumin PLEURAL FLD
[2018-03-28 21:16] LABS: Fluid Source for Albumin PLEURAL FLD
[2018-03-30 13:20] LABS: Triglycerides,Body Fluid 24 mg/dL
[2018-04-01 11:29] LABS: Cholesterol,Body Fluid 41 mg/dL
== END 2018-03-27 17:11 | DRG 194 ==
LOC: EMEROO 22:51 → 3BNU 22:51
PROVIDERS: ADMIT Internal Medicine; ATTEND Internal Medicine